=== PATIENT | male | born 1935 | race Caucasian/White ===

== ENCOUNTER 2020-10-11 08:25 | Outpatient (REF) | payer SELFPAY | END 2020-10-11 08:26 | disposition home or self-care (01) | LOC: HO.HAP 08:25 | PROVIDERS: PCP Internal Medicine; Referring Provider Internal Medicine; Visit Provider Internal Medicine | DX: Z46.1 Encounter for fitting and adjustment of hearing aid (principal) | CPT/HCPCS: V5267 ==

== ENCOUNTER → 2020-12-26 07:49 | Outpatient (BNVA) | payer MEDICARE, SELFPAY | PROVIDERS: PCP Internal Medicine; Visit Provider Internal Medicine | DX: I25.10 Atherosclerotic heart disease of native coronary artery without angina pectoris (principal); I51.89 Other ill-defined heart diseases; I27.20 Pulmonary hypertension, unspecified; I10 Essential (primary) hypertension; E11.8 Type 2 diabetes mellitus with unspecified complications | CPT/HCPCS: 93005; 99212 ==

== ENCOUNTER 2021-03-21 07:28 | Outpatient (REF) | payer MEDICARE, SELFPAY ==
[2021-03-21 08:43] LABS: MANUAL DIFF FLAG NO
[2021-03-21 08:51] LABS: Basophils Percent Auto 0.5 % (0-2); Eosinophils Absolute Auto 0.2 X10*3/uL (0.0-0.4); Eosinophils Percent Auto 2.5 % (0-4); Hemoglobin 13.5 g/dl (14.0-18.0); Imm Gran Abs Auto 0.04 X10*3/uL (0.00-0.03); Imm Gran Pct Auto 0.5 % (0.0-0.4); Immature Retic Fraction 18.5 % (2.3-13.4); Lymphocytes Absolute Auto 2.6 X10*3/uL (1.2-4.9); Lymphocytes Percent Auto 29.8 % (20-40); Mean Corpuscular HGB Conc 30.7 g/dl (31.0-36.0); Mean Corpuscular Hemoglobin 27.8 pg (27.0-33.0); Mean Corpuscular Volume 90.5 fL (80-98); Mean Platelet Volume 11.4 fL (9.4-12.4); Monocytes Absolute Auto 0.9 X10*3/uL (0.1-1.2); Neutrophils Absolute Auto 4.9 X10*3/uL (2.0-8.3); Neutrophils Percent Auto 56.7 % (45-73); Platelet Count 245 X10*3/uL (160-400); Red Blood Count 4.86 X10*6/uL (4.60-5.80); Red Cell Distribution Width 13.8 % (11.0-16.0); Retic HGB Equivalent 32.6 pg (30.0-35.0); Reticulocyte Percent 1.1 % (0.5-1.8); Reticulocytes Absolute 0.055 X10*6/uL (0.026-0.095); White Blood Count 8.6 X10*3/uL (4.8-10.8)
[2021-03-21 09:03] LABS: Alanine Aminotransferase 11 U/L (0-40); Albumin Level 4.5 g/dL (3.5-5.0); Alkaline Phosphatase 88 U/L (39-117); Anion Gap 14 (12-20); Aspartate Amino Transferase 17 U/L (5-37); Bilirubin Total 1.1 mg/dL (0.0-1.0); Blood Urea Nitrogen 16 mg/dL (9-16); Calcium 9.5 mg/dL (8.4-10.2); Carbon Dioxide 25 mmol/L (22-29); Chloride 104 mmol/L (96-108); Cholesterol 137 mg/dL; Estimated Glomerular Filt Rate > 60; Glucose Random 97 mg/dL (60-115); HDL Cholesterol 47 mg/dL; Iron 61 mcg/dL (45-160); LDL Cholesterol Calculated 70 mg/dl; Percent Iron Saturation 15 % (15-50); Potassium 4.9 mmol/L (3.3-5.1); Sodium 138 mmol/L (135-145); Total Iron Binding Capacity 414 mcg/dL (228-428); Total Protein 7.1 g/dL (6.5-8.0); Triglycerides 100 mg/dL; Unsaturated Iron Binding 353 ug/dL
[2021-03-21 09:27] LABS: Ferritin 19 ng/mL (20-250); Free T4 (Free Thyroxine) 1.06 ng/dL (0.71-1.85); Thyroid Stimulating Hormone 2.32 uIU/mL (0.32-4.0)
[2021-03-21 09:36] LABS: Folate 8.5 ng/mL (> or = 4.0); Vitamin B12 1155 pg/mL (200-900)
[2021-03-21 11:00] LABS: Creatinine Urine 253.16 mg/dL; Microalbum/Creatinine Ratio Ur 7.9 ug/mg cr
== END 2021-03-21 07:29 | disposition home or self-care (01) ==
LOC: HO.LAB 07:28
PROVIDERS: PCP Internal Medicine; Visit Provider Internal Medicine
DX: I10 Essential (primary) hypertension (principal); E11.65 Type 2 diabetes mellitus with hyperglycemia; E78.00 Pure hypercholesterolemia, unspecified
CPT/HCPCS: 36415; 80053; 80061; 82043; 82607; 82728; 82746; 83540; 84439; 84443; 85025; 85045

== ENCOUNTER 2021-04-19 08:00 | Outpatient (REF) | payer SELFPAY ==
--- NOTE | 2021-04-19 08:56 | MHC.AU.HFU ---
Hearing Instrument Follow-Up- Binaural Date of Visit: 04/19/21 Right Ear: Dock Clerk: Phonak Model: Audeo Q50 Serial Number: [id number] Repair Warranty: 10/19/2017 Loss and Damage Warranty: 10/19/2017 Battery Size: 312 Telecommunication Operator: 3xS Type of Dome: Large Open Type of Wax Guard: CeruStop Dispensed By: [facility] Date of Fittin08/05/2014 Left Ear: Dock Clerk: Phonak Model: Audeo Q50 Serial Number: [id number] Repair Warranty: 10/19/2017 Loss and Damage Warranty: 10/19/2017 Battery Size: 312 Telecommunication Operator: 3xS Type of Dome: Large Open Type of Wax Guard: CeruStop Dispensed By: [facility] Date of Fittin08/05/2014 Follow-Up Summary: Patient reports his left hearing aid recently stopped working. He also noted that the domes are ripped on both instruments. Hearing aid maintenance performed. In the left cloth measurer, a small amount of wax had gotten past the wax guard. Wax was removed from the cloth measurer. Microphones on both hearing aids were partially clogged. Microphones were vacuumed. Wax guards and domes replaced. Debris cleaned out of both battery compartments. Hearing aids are both amplifying clearly after maintenance. Patient reported they both sounded good, and no adjustments were needed. Patient purchased 2 packages of wax guards. Recommendations: Hearing instrument follow-up or maintenance as needed. Please contact our clinic with any questions or concerns. Diagnosis Code(s): Primary Diagnosis: H90.3 Bilateral Sensorineural Hearing Loss Signature: Provider: Monica Covington, [facility]
== END 2021-04-19 08:01 | disposition home or self-care (01) ==
LOC: HO.HAP 08:00
PROVIDERS: Visit Provider Internal Medicine
DX: Z46.1 Encounter for fitting and adjustment of hearing aid (principal); H90.3 Sensorineural hearing loss, bilateral
CPT/HCPCS: 99499; V5267

== ENCOUNTER 2021-06-14 10:46 | Outpatient (REF) | payer MEDICARE, SELFPAY ==
--- NOTE | ~2021-06-14 | XR_ITS ---
EXAMINATION: XR CHEST CLINICAL INFORMATION: Chest pain. COMPARISON: Most recent chest radiograph dated 09/17/2017. TECHNIQUE: 2 views of the chest were obtained. FINDINGS: The lungs are clear. The cardiomediastinal silhouette is normal in size. There is no pleural effusion or pneumothorax. No acute osseous abnormality. XR/XR chest 2V IMPRESSION: No acute cardiopulmonary findings.
[2021-06-14 11:16] LABS: MANUAL DIFF FLAG NO
[2021-06-14 11:19] LABS: Basophils Percent Auto 0.3 % (0-2); Eosinophils Absolute Auto 0.1 X10*3/uL (0.0-0.4); Eosinophils Percent Auto 1.4 % (0-4); Hematocrit 41.2 % (42-52); Hemoglobin 13.2 g/dl (14.0-18.0); Imm Gran Abs Auto 0.03 X10*3/uL (0.00-0.03); Imm Gran Pct Auto 0.3 % (0.0-0.4); Lymphocytes Absolute Auto 2.4 X10*3/uL (1.2-4.9); Lymphocytes Percent Auto 25.8 % (20-40); Mean Corpuscular Hemoglobin 28.9 pg (27.0-33.0); Mean Corpuscular Volume 90.4 fL (80-98); Mean Platelet Volume 10.8 fL (9.4-12.4); Monocytes Absolute Auto 0.8 X10*3/uL (0.1-1.2); Neutrophils Percent Auto 64.2 % (45-73); Platelet Count 246 X10*3/uL (160-400); Red Blood Count 4.56 X10*6/uL (4.60-5.80); Red Cell Distribution Width 14.2 % (11.0-16.0); White Blood Count 9.3 X10*3/uL (4.8-10.8)
[2021-06-14 11:41] LABS: Alanine Aminotransferase 12 U/L (0-40); Albumin Level 4.4 g/dL (3.5-5.0); Alkaline Phosphatase 90 U/L (39-117); Anion Gap 16 (12-20); Aspartate Amino Transferase 17 U/L (5-37); Bilirubin Total 1.5 mg/dL (0.0-1.0); Blood Urea Nitrogen 15 mg/dL (9-16); Calcium 9.5 mg/dL (8.4-10.2); Carbon Dioxide 24 mmol/L (22-29); Chloride 105 mmol/L (96-108); Estimated Glomerular Filt Rate > 60; Glucose Random 85 mg/dL (60-115); Potassium 5.1 mmol/L (3.3-5.1); Sodium 140 mmol/L (135-145); Total Protein 6.8 g/dL (6.5-8.0)
[2021-06-14 11:43] LABS: B Type Natriuretic Peptide 98 pg/mL (<100)
== END 2021-06-14 10:47 | disposition home or self-care (01) ==
LOC: HO.XRAY 10:46
PROVIDERS: PCP Internal Medicine; Visit Provider Internal Medicine
DX: R07.9 Chest pain, unspecified (principal)
CPT/HCPCS: 36415; 71046; 80053; 83880; 85025

== ENCOUNTER → 2021-07-23 13:47 | Outpatient (REF) | payer MEDICARE, SELFPAY ==
--- NOTE | 2021-07-23 13:50 | CA_ITS ---
Transthoracic Echocardiogram Patient (Last, First, Middle): Juan Giles F Gender: Male Date of : 1935 Age: 85 Procedure Date: 07/23/2021 Procedure Type: Transthoracic Echocardiogram Location: OP Height: 175.26 cm Weight: 74.84 kg BSA: 1.90 m2 Heart Rate: bpm BP: 116 / 60 mmHg Life Sciences Director: MARY JO Referring MD: Layne Kimball MD Supervisor Stave Cutting: Marco Pinon MD Symptoms: R07.9 - Chest pain, unspecified Study Quality: Fair ECG Rhythm: Sinus Conclusions: - 1. Normal LV systolic function with restrictive filling pattern 2. Normal cardiac valvular Doppler 3. RV systolic pressure measured on this study to be within normal limits 4. No gross pericardial effusion Findings Left Ventricle Normal left ventricular size, thickness, and systolic function. The visually estimated ejection fraction is between 60-65%. Spectral Doppler is indicative of a restrictive filling pattern. Elevated left ventricular end diastolic pressure. E/E prime ratio is between 8 and 15 consistent with indeterminate filling pressures. Right Ventricle Normal right ventricular cavity size. There is low normal right ventricular systolic function. Atria The left atrium is likely dilated. Interatrial shunt cannot be excluded. The right atrium is normal in size. Aortic Valve The aortic valve was not well visualized. There is mild calcification of the aortic valve. There is no aortic valve stenosis. There is no aortic valve regurgitation. Mitral Valve There is mild anterior and posterior mitral leaflet thickening. There is mild mitral annular calcification. There is trace mitral valve regurgitation. There is no mitral valve stenosis. Pulmonic Valve The pulmonic valve is likely normal. Tricuspid Valve Likely normal tricuspid valve structure and function. There is mild tricuspid valve regurgitation. The right ventricular systolic pressure is normal. The right ventricular systolic pressure is 38 mmHg. Normal right atrial pressure. There is no evidence of pulmonary hypertension. Great Vessels All visible segments of the aorta are normal in size. The pulmonary artery was not well visualized. Venous The inferior vena cava is normal in size and collapses greater than 50% with inspiration. Pericardium/Pleural There is no evidence of pericardial effusion. Prior Study Comparison Changes noted compared to prior study dated: 12/08/2019. LV diastolic dysfunction suggestive of restrictive filling pattern. RV systolic pressure on this study is measured to be within normal limits, possibly underestimated Measurements 2D Linear Measurements IVSd: 0.95 0.6-0.9/0.6-1.0 cm LVIDd: 4.54 3.9-5.3/4.2-5.9 cm LVIDd Index: 2.39 2.4-3.2/2.2-3.1 cm/m2 LVIDs: 3.13 2.0-3.6 cm LVPWd: 0.99 0.7-1.1 cm Ao Root: 3.30 2.1-3.5 cm LA Diam: 3.50 2.7-3.8/3.0-4.0 cm LAIDs Index: 1.84 1.5-2.3 cm/m2 LV Mass: 184.88 67-162/88-224 g LV Mass Index: 97.30 43-95/49-115 g/m2 LVOT Diam: 2.00 3.0+(-)1.3 cm 2D Systolic Function EF 4C: 64.10 >55% EF 2C: 63.00 >55% Mitral Valve MV Pk E: 1.04 MV PK A: 0.36 MV Decel Time: 178.00 E/A: 2.90 E'Lateral: 6.96 E'Medial: 7.18 E/E' Med: 14.50 E/E' Lat: 14.90 PHT: 52.00 MVA PHT: 4.23 Decel [place]: 5.84 Aortic Valve AoV Pk Binh: 1.36 AoV Mn Binh: 0.86 AoV VTI: 0.31 AoV Pk Grad: 7.00 Aov Mn Grad: 4.00 LYLE Cont.VTI: 1.76 LVOT LVOT Pk Binh: 0.71 LVOT Mn Binh: 0.44 LVOT VTI: 0.17 LVOT Pk Grad: 2.00 LVOT Mn Grad: 1.00 LVOT Diam: 2.00 LVOT Area: 3.14 Diastolic Function MV Pk E: 1.04 MV Pk A: 0.36 E/A: 2.90 E'Medial: 7.18 E/E' Med: 14.50 E' Laterial: 6.96 E/E' Lat: 14.90 Tricuspid Valve TR Pk Binh: 2.97 TR Pk Grad: 35.00 RA Press: 3.00 RVSP: 38.00 Great Vessels Aorta Ao Root-2D: 3.30 2.0-3.7 cm Ao Asc: 3.50 2.1-3.4 cm Pulmonary Valve PV Pk Binh: 0.75 Peak PV Grad: 2.00 Updated in Other Vendor System with Status of Final Marco Pinon MD electronically signed on 07/24/2021 4:00:20 PM with status of Final
== END ==
LOC: HO.CARD 13:47
PROVIDERS: PCP Internal Medicine; Visit Provider Internal Medicine
DX: R07.9 Chest pain, unspecified (principal)
CPT/HCPCS: 93306

== ENCOUNTER 2021-09-12 15:46 | Outpatient (REF) | payer SELFPAY | END 2021-09-12 15:47 | disposition home or self-care (01) | LOC: HO.HAP 15:46 | PROVIDERS: Visit Provider Internal Medicine | DX: H90.3 Sensorineural hearing loss, bilateral (principal) | CPT/HCPCS: V5267 ==

== ENCOUNTER → 2021-12-31 08:46 | Outpatient (BNVA) | payer OTHER, SELFPAY | PROVIDERS: PCP Internal Medicine; Referring Provider Internal Medicine; Visit Provider Internal Medicine | DX: I25.10 Atherosclerotic heart disease of native coronary artery without angina pectoris (principal); I51.89 Other ill-defined heart diseases; I27.20 Pulmonary hypertension, unspecified; I10 Essential (primary) hypertension; E11.8 Type 2 diabetes mellitus with unspecified complications | CPT/HCPCS: 93005 ==

== ENCOUNTER 2022-01-03 11:04 | Outpatient (REF) | payer SELFPAY | END 2022-01-03 11:05 | disposition home or self-care (01) | LOC: HO.HAP 11:04 | PROVIDERS: Visit Provider Internal Medicine | DX: Z46.1 Encounter for fitting and adjustment of hearing aid (principal); H90.3 Sensorineural hearing loss, bilateral | CPT/HCPCS: V5267 ==

== ENCOUNTER 2022-01-31 07:43 | Outpatient (REF) | payer MEDICARE, SELFPAY ==
--- NOTE | ~2022-01-31 | XR_ITS ---
EXAMINATION: XR CHEST CLINICAL INFORMATION: Cardiac arrhythmia COMPARISON: Previous chest x-ray most recent June 2021 TECHNIQUE: 2 views of the chest were obtained. FINDINGS: The cardiac and mediastinal contours are stable. The lungs are well inflated. The lungs are clear. There is no pleural effusion or pneumothorax. There are mild degenerative changes of the spine. XR/XR chest 2V IMPRESSION: No evidence for acute disease in the chest.
[2022-01-31 08:21] LABS: MANUAL DIFF FLAG NO
[2022-01-31 08:32] LABS: Basophils Absolute Auto 0.1 X10*3/uL (0.0-0.2); Basophils Percent Auto 0.8 % (0-2); Eosinophils Absolute Auto 0.1 X10*3/uL (0.0-0.4); Eosinophils Percent Auto 2.1 % (0-4); Hematocrit 42.6 % (42.0-52.0); Hemoglobin 13.5 g/dl (14.0-18.0); Imm Gran Abs Auto 0.03 X10*3/uL (0.00-0.03); Imm Gran Pct Auto 0.5 % (0.0-0.4); Lymphocytes Absolute Auto 2.1 X10*3/uL (1.2-4.9); Lymphocytes Percent Auto 32.3 % (20-40); Mean Corpuscular HGB Conc 31.7 g/dl (31.0-36.0); Mean Corpuscular Hemoglobin 27.3 pg (27.0-33.0); Mean Corpuscular Volume 86.2 fL (80.0-98.0); Mean Platelet Volume 10.7 fL (9.4-12.4); Monocytes Absolute Auto 0.7 X10*3/uL (0.1-1.2); Monocytes Percent Auto 10.2 % (2-11); Neutrophils Absolute Auto 3.5 x10*3/uL (2.0-8.3); Neutrophils Percent Auto 54.1 % (45-73); Platelet Count 252 X10*3/uL (160-400); Red Blood Count 4.94 X10*6/uL (4.60-5.80); Red Cell Distribution Width 13.2 % (11.0-16.0); White Blood Count 6.5 X10*3/uL (4.8-10.8)
[2022-01-31 08:45] LABS: D Dimer High Sensitivity < 150 NG/ML
[2022-01-31 08:46] LABS: Appearance Urine CLEAR; Color Urine YELLOW; Glucose Urine UA NEG (NEG); Leukocyte Esterase Urine NEG (NEG); Nitrite Urine NEG (NEG); PH 5.5 (5.0-8.0); Specific Gravity - Urine >= 1.030 (1.005-1.025); Urine Blood NEG (NEG); Urine Ketones NEG (NEG); Urine Protein NEG (NEG-TRACE)
[2022-01-31 08:53] LABS: Alanine Aminotransferase 11 U/L (0-40); Albumin Level 4.1 g/dL (3.5-5.0); Alkaline Phosphatase 92 U/L (39-117); Anion Gap 15 (12-20); Aspartate Amino Transferase 16 U/L (5-37); Blood Urea Nitrogen 20 mg/dL (9-16); Calcium 9.8 mg/dL (8.4-10.2); Carbon Dioxide 27 mmol/L (22-29); Chloride 103 mmol/L (96-108); Estimated Glomerular Filt Rate 53; Glucose Random 108 mg/dL (60-115); Potassium 5.7 mmol/L (3.3-5.1); Sodium 139 mmol/L (135-145); Total Protein 6.7 g/dL (6.5-8.0)
[2022-01-31 08:57] LABS: Troponin-I High Sensitivity < 3.5 ng/L (<3.5-35.0)
[2022-01-31 09:05] LABS: Mucus Urine 1+ /LPF; RBC Urine 0 /HPF (0); Squamous Epithelial Cell Urine TRACE /LPF; WBC Urine 0 /HPF (0-4)
[2022-01-31 09:16] LABS: Free T4 (Free Thyroxine) 1.23 ng/dL (0.71-1.85); Thyroid Stimulating Hormone 2.57 uIU/mL (0.32-4.0)
== END 2022-01-31 07:44 | disposition home or self-care (01) ==
LOC: HO.LAB 07:43
PROVIDERS: PCP Internal Medicine; Visit Provider Internal Medicine
DX: I49.9 Cardiac arrhythmia, unspecified (principal); I48.91 Unspecified atrial fibrillation; I48.92 Unspecified atrial flutter
CPT/HCPCS: 36415; 71046; 80053; 81001; 82550; 84439; 84443; 84484; 85025; 85379

== ENCOUNTER → 2022-02-07 14:35 | Outpatient (BNVA) | payer MEDICARE, SELFPAY | PROVIDERS: PCP Internal Medicine; Referring Provider Internal Medicine; Visit Provider Internal Medicine | DX: I25.10 Atherosclerotic heart disease of native coronary artery without angina pectoris (principal); I51.89 Other ill-defined heart diseases; I27.20 Pulmonary hypertension, unspecified; I48.91 Unspecified atrial fibrillation; I10 Essential (primary) hypertension | CPT/HCPCS: 93005; 99212 ==

== ENCOUNTER 2022-02-07 15:02 | Observation (INO) | payer MEDICARE, SELFPAY ==
--- NOTE | 2022-02-07 | ECG_ITS ---
Test Reason : AFIB/ST CHANGES Blood Pressure : / mmHG Vent. Rate : 100 BPM Atrial Rate : 277 BPM P-R Int : 000 ms QRS Dur : 080 ms QT Int : 356 ms P-R-T Axes : 000 041 -27 degrees QTc Int : 459 ms Atrial flutter with variable A-V block Low voltage QRS Nonspecific ST and T wave abnormality Abnormal ECG When compared with ECG of 07-FEB-2022 15:02, Vent. rate has decreased ST less depressed in Anterior leads T wave inversion no longer evident in Anterolateral leads Referred By: Tony Luo Electronically Signed By:TOBIAS DUVAL MD
--- NOTE | ~2022-02-07 | XR_ITS ---
EXAMINATION: XR CHEST CLINICAL INFORMATION: Chest pain. COMPARISON: 01/31/2022 chest radiographs. TECHNIQUE: Frontal view of the chest was obtained. FINDINGS: No significant abnormality is noted involving the heart, lungs, mediastinum, bony thorax or soft tissues. XR/XR chest 1V IMPRESSION: No acute cardiopulmonary process.
[2022-02-07 15:07] VITALS: BP 154/94; PULSE 143; RESP 18; TEMP 35.5; O2SAT 98; BMI 24.7
--- NOTE | 2022-02-07 15:07 | ECG_ITS ---
Test Reason : CHEST PAIN Blood Pressure : / mmHG Vent. Rate : 140 BPM Atrial Rate : 141 BPM P-R Int : 206 ms QRS Dur : 068 ms QT Int : 282 ms P-R-T Axes : 043 047 -81 degrees QTc Int : 430 ms Atrial flutter with [address] & T wave abnormality, consider inferior ischemia ST & T wave abnormality, consider anterolateral ischemia Abnormal ECG No previous ECGs available Referred By: Generic ED Physician Electronically Signed By:TOBIAS DUVAL MD
--- NOTE | 2022-02-07 15:37 | ED_ITS ---
HPI - Chest Pain General Chief Complaint: Chest Pain Stated Complaint: william came from cardiology Time Seen by Provider: 02/07/22 15:23 Source: patient and other (Expect from the musical instruments assembler, Dr. Harley) Mode of arrival: ambulatory Limitations: no limitations History of Present Illness HPI narrative: 86-year-old male who presents emergency department for evaluation of atrial fibrillation. The patient states that last week he went for a checkup with his PCP Dr. Kimball. He states that Dr. Lopez did not like the sound of his heart got an EKG on him and also got blood work. The blood work revealed an elevated potassium he states he took a medicine for 3 days to low risk potassium. He was also referred to his musical instruments assembler for atrial fibrillation. The patient has soft Dr. Harley today and he was found to be in atrial fibrillation with a rapid ventricular response. The patient was symptomatic and was referred to the emergency department for evaluation. The patient states that he has been feel ing short of breath for approximately 1 week. He also states he is having pressure on his chest. He states that over the past 2 days the chest pressure was constant, he also had pain that radiated to his left arm. The chest pressure is 4/10. He was feeling dizzy and lightheaded. In the emergency department he states he does have chest pressure it is 4/10. The patient states that he does not have a history of atrial fibrillation and that this is a new diagnosis for him. He does have a history coronary artery disease and has had 2 stents in the past. He also has a history of diastolic dy sfunction Related Data Home Medications Medication Instructions Recorded Confirmed albuterol sulfate 90 mcg/actuation 2 puff INHALATION Q6H PRN 10/06/20 02/07/22 aerosol inhaler (ProAir HFA) aspirin 81 mg tablet,delayed 81 mg PO DAILY 10/06/20 02/07/22 release (Adult Low Dose Aspirin) Previous Rx's Medication Instructions Recorded metoprolol tartrate 50 mg tablet 50 mg PO BID 90 Days #180 tab 10/11/21 amlodipine 5 mg tablet 5 mg PO DAILY #90 tab 10/16/21 atorvastatin 40 mg tablet 40 mg PO DAILY #90 tab 10/16/21 apixaban 5 mg tablet (Eliquis) 5 mg PO BID #60 tab 01/30/22 Allergies Allergy/AdvReac Type Severity Reaction Status Date / Time lisinopril Allergy Unknown hyperkalemi Verified 02/07/22 14:42 a Review of Systems Review of Systems: Yes all other systems are reviewed and are negative [facility] Past Medical History Attestation statement: The following information was validated with the patient. Medical History Asthma Atherosclerotic cardiovascular disease Coronary artery disease Diabetic neuropathy Diastolic dysfunction Essential hypertension Hypercholesterolemia Iron deficiency anemia Left renal stone Pulmonary hypertension Type 2 diabetes mellitus with hyperglycemia Vitamin D deficiency Surgical History History of appendectomy History of inguinal hernia repair History of lymph node excision Family History Family History Father CVD (cardiovascular disease) Myocardial infarction Mother Hypertension Heart disease Diabetes CVD (cardiovascular disease) Sister No problems noted. Sister Diabetes Social History Social History Housing: House Alcohol intake: never Patient Tobacco Use Status: Former Tobacco user Tobacco use type: Cigarette e-Cigarette/Vaping Use: Never Used Second Hand Smoke Exposure: No Advance Directives: No Advance Directives Information Provided: No service: Yes Current occupational status: retired Cognitive needs: No Hearing needs: Yes Vision needs: Yes Physical Exam Vital Signs: Vital Signs: Last Vital Signs Temp 96 F L 02/07/22 15:07 Pulse 82 02/07/22 16:25 Resp 16 02/07/22 16:25 BP 113/61 02/07/22 16:25 Pulse Ox 96 02/07/22 16:25 BMI result Body Mass Index 24.7 Const: General: cooperative and no acute distress Orientation/consciousness: oriented to person and oriented to place Limitations: no limitations HEENT: Head: Yes normal to inspection, Yes normocephalic and Yes atraumatic Ears: external ears normal General nose exam: Normal external nose present Face and sinus: Yes normal facial exam Mouth: Normal oral and palatal mucosa present Throat: Yes posterior oropharynx normal Eyes: General: appearance normal, both eyes and all related structures Pupils: Equal, round and reactive pupils present Neck: Neck: Yes normal visual inspection, Yes no lymphadenopathy, Yes trachea midline and Yes supple Chest: Chest palpation & inspection: normal inspection of the chest and normal palpation of entire chest wall Resp: Effort & Inspection: normal respiratory effort and able to speak in complete sentences Auscultation: clear to auscultation bilaterally Cardio: Rate: tachycardic Rhythm: abnormal rhythm irregularly irregular Heart sounds: S1 normal heart sound present and S2 normal heart sound present GI: Inspection: Yes normal to inspection Palpation (GI): Soft to palpation, nontender and no guarding Auscultation: normal bowel sounds : General: Yes no CVA tenderness Back/Spine/Pelvis: Back: no CVA tenderness Skin: General skin exam: no rashes or lesions noted Neuro: General: oriented to person and oriented to place Cranial nerves: Y es CN's II-XII intact bilaterally and Yes Equal, round and reactive pupils present Cognition (Neuro): normal cognition Motor exam (neuro): 5/5 motor strength present throughout Extrem: General: Yes normal to inspection Psych: Appearance: grossly normal Speech and movement: Normal speech and movement present Affect: normal affect Attitude: cooperative Thought process: Normal thought process present Thought content: Normal thought content present Course Course Course Narrative: 86-year-old male who presents emergency department for evaluation of new onset atrial fibrillation with shortness of breath x1 week, chest pain which is been constant x2 days with left arm pain as well. Patient was seen by Dr. Meng de la cruz and sent to the emergency department for evaluation. Vital signs revealed an elevated blood pressure 154/94 and an elevated heart rate of 143. Twelve EKG revealed atrial fibrillation with a rapid ventricular response 140 I did order laboratory evaluation. Patient was also ordered to get diltiazem 15 mg IV. 1734: Laboratory evaluation: CBC was normal. Glucose elevated 121. Potassium was normal 4.6, down from 5.7 on 01/31/2022. High sensitive troponin I was below detectable limits. TSH from 01/31/2022 was normal. Influenza was negative. Radiology evaluation: Chest x-ray was normal The patient's heart rate improved to less than 100 after the above treatment. The patient states he still is having the chest discomfort. Given the fact that this high sensitive troponin is below detectable limits but having constant chest pain for 2 days suggests that the patient's pain is not secondary to myocardial infarction. Since the patient has new onset atrial fibrillation asymptomatic I will discuss admission with the covering hospitalist. 1820: I did discuss this with the covering musical instruments assembler, Dr. Pinon who recommended the patient be admitted and be kept NPO. MDM - Chest Pain Lab Data Result diagrams: 02/07/22 15:58 Labs: Lab Results 02/07/22 02/07/22 02/07/22 Range/Units 15:58 15:58 15:58 Sodium 143 142 (135-145) mmol/L Potassium 4.5 D 4.6 (3.3-5.1) mmol/L Chloride 106 106 (96-108) mmol/L Carbon Dioxide 26 27 (22-29) mmol/L Anion Gap 16 14 (12-20) BUN 19 H 18 H (9-16) mg/dL Creatinine 1.06 1.03 (0.5-1.4) mg/dL Estim Creat Clear Calc 50.0 51.4 Estimated GFR > 60 > 60 Random Glucose 126 H 121 H (60-115) mg/dL Calcium 9.2 D 9.1 (8.4-10.2) mg/dL Total Bilirubin 1.5 H (0.0-1.0) mg/dL AST 18 (5-37) U/L ALT 13 (0-40) U/L Alkaline Phosphatase 96 (39-117) U/L Troponin I High Sens < 3.5 (<3.5-35.0) ng/L Total Protein 6.8 (6.5-8.0) g/dL Albumin 4.1 (3.5-5.0) g/dL Lipase 49 (8-78) U/L Influenza Type A (RICK) (Negative) Influenza Type B (RICK) (Negative) Influenza A & B Note 02/07/22 Range/Units 16:04 Sodium (135-145) mmol/L Potassium (3.3-5.1) mmol/L Chloride (96-108) mmol/L Carbon Dioxide (22-29) mmol/L Anion Gap (12-20) BUN (9-16) mg/dL Creatinine (0.5-1.4) mg/dL Estim Creat Clear Calc Estimated GFR Random Glucose (60-115) mg/dL Calcium (8.4-10.2) mg/dL Total Bilirubin (0.0-1.0) mg/dL AST (5-37) U/L ALT (0-40) U/L Alkaline Phosphatase (39-117) U/L Troponin I High Sens (<3.5-35.0) ng/L Total Protein (6.5-8.0) g/dL Albumin (3.5-5.0) g/dL Lipase (8-78) U/L Influenza Type A (RICK) Negative (Negative) Influenza Type B (RICK) Negative (Negative) Influenza A & B Note See Note ECG Data ECG #1: Interpretation: 1502: Atrial fibrillation with a ventricular rate of 140, normal QRS and QTC intervals, no ST segment elevation, [address] depression V4 V5 and V6, no PVCs, Discharge Plan Discharge Prescriptions: No Action metoprolol tartrate 50 mg tablet 50 mg PO BID 90 Days Qty: 180 3RF aspirin [Adult Low Dose Aspirin] 81 mg tablet,delayed release (DR/EC) 81 mg PO DAILY 0RF albuterol sulfate [ProAir HFA] 90 mcg/actuation HFA aerosol inhaler 2 puff inhalation Q6H PRN (Reason: Shortness Of Breath) 0RF atorvastatin 40 mg tablet 40 mg PO DAILY Qty: 90 3RF amlodipine 5 mg tablet 5 mg PO DAILY Qty: 90 3RF Eliquis 5 mg tablet 5 mg PO BID Qty: 60 0RF
[2022-02-07 16:07] VITALS: BP 131/89; PULSE 120; RESP 26; O2SAT 97
[2022-02-07 16:16] LABS: Anion Gap 16 (12-20); Blood Urea Nitrogen 19 mg/dL (9-16); Calcium 9.2 mg/dL (8.4-10.2); Carbon Dioxide 26 mmol/L (22-29); Chloride 106 mmol/L (96-108); Estimated Glomerular Filt Rate > 60; Glucose Random 126 mg/dL (60-115); Potassium 4.5 mmol/L (3.3-5.1); Sodium 143 mmol/L (135-145)
[2022-02-07] MEDS: dilTIAZem HCL 50 MG/10 ML VIAL 15 MG IVPUSH (16:19)
[2022-02-07 16:23] LABS: Troponin-I High Sensitivity < 3.5 ng/L (<3.5-35.0)
[2022-02-07 16:24] LABS: Alanine Aminotransferase 13 U/L (0-40); Albumin Level 4.1 g/dL (3.5-5.0); Alkaline Phosphatase 96 U/L (39-117); Anion Gap 14 (12-20); Aspartate Amino Transferase 18 U/L (5-37); Bilirubin Total 1.5 mg/dL (0.0-1.0); Blood Urea Nitrogen 18 mg/dL (9-16); Calcium 9.1 mg/dL (8.4-10.2); Carbon Dioxide 27 mmol/L (22-29); Chloride 106 mmol/L (96-108); Creatinine Clr Calc Pharmacy 51.4; Estimated Glomerular Filt Rate > 60; Glucose Random 121 mg/dL (60-115); Lipase 49 U/L (8-78); Potassium 4.6 mmol/L (3.3-5.1); Sodium 142 mmol/L (135-145); Total Protein 6.8 g/dL (6.5-8.0)
[2022-02-07 16:25] VITALS: BP 113/61; PULSE 82; RESP 16; O2SAT 96
[2022-02-07 16:29] LABS: Influenza A Negative (Negative); Influenza B2 Negative (Negative)
--- NOTE | 2022-02-07 17:58 | PHA.MEDREC ---
Pharmacy Consult ? Medication Reconciliation Pharmacy has completed the medication reconciliation.
--- NOTE | 2022-02-07 18:50 | P.HPHOSP_ITS ---
History of Present Illness Date of Service: 02/07/22 Attending physician on admission: Tony Luo Chief Complaint: afib , chest pain 86y/o M who CAME WITH AFIB.? The patient states that last week he went for a checkup with his PCP Dr. Kimball.? He states that Dr. Kimball did not like the sound of his heart got an EKG on him and also got blood work.? The blood work revealed an elevated potassium he states he took a medicine for 3 days to low risk potassium.? He was also referred to his senior internet sales consultant for atrial fibrillationand went to cardiology today where he was found to be in atrial fibrillation with a rapid ventricular response.? The patient was symptomatic and was referred to the emergency department for evaluation.? The patient states that he has been feeling short of breath for approximately 1 week.? He also states he is having pressure on his chest.? He states that over the past 2 days the chest pressure was constant, he also had pain that radiated to his left arm.? The chest pressure is 4/10.? He was feeling dizzy and lightheaded.? intial chest pressure it is 4/10 which is resolved, he said when he had chest pressure he has also had some dizziness and short of breath but all the symptoms are resolved currently. He said the chest pressure resolved with resting phone last week . The patient states that he does not have a history of atrial fibrillation and that this is a new diagnosis for him.? He does have a history coronary artery disease and has had 2 stents in the past.? He also has a history of diastolic dysfunction Lab imaging reviewed: CBC BMP seems fine, EKG shows T wave the lateral leads in the setting of AFib. Patient had nuclear stress done in November 2017: Was fine., also added that time stress test also showed V4 to V6 downsloping ST roman. Review of Systems Review of Systems: Denies any new complaint of shortness of breath or abdominal pain or fever or chills or nausea or vomiting Denies any cough Denies any weakness or numbness. [facility] Medical History Asthma Atherosclerotic cardiovascular disease Coronary artery disease Diabetic neuropathy Diastolic dysfunction Essential hypertension Hypercholesterolemia Iron deficiency anemia Left renal stone Pulmonary hypertension Type 2 diabetes mellitus with hyperglycemia Vitamin D deficiency Family History Father CVD (cardiovascular disease) Myocardial infarction Mother Hypertension Heart disease Diabetes CVD (cardiovascular disease) Sister No problems noted. Sister Diabetes Pertinent family history: Heart disease run in family, also has history of diabetes in her sister. Surgical History History of appendectomy History of inguinal hernia repair History of lymph node excision Social History Housing: House Alcohol intake: never Patient Tobacco Use Status: Former Tobacco user Tobacco use type: Cigarette e-Cigarette/Vaping Use: Never Used Second Hand Smoke Exposure: No Advance Directives: No Advance Directives Information Provided: No service: Yes Current occupational status: retired Cognitive needs: No Hearing needs: Yes Vision needs: Yes Meds Allergies Allergy/AdvReac Type Severity Reaction Status Date / Time lisinopril Allergy Unknown hyperkalemi Verified 02/07/22 14:42 a Active Medications: Current Medications Albuterol Sulfate (Albuterol Sulfate 90 Mcg 8 Gm Inhaler) 2 puff INHALE Q6H PRN PRN Reason: Shortness Of Breath Amlodipine Besylate (Amlodipine Besylate 5 Mg Tablet) 5 mg PO DAILY [facility]; Protocol Apixaban (Apixaban 5 Mg Tablet) 5 mg PO BID [facility] Aspirin (Aspirin Enteric Coated 81 Mg Tablet.Dr) 81 mg PO DAILY [facility] Atorvastatin Calcium (Atorvastatin Calcium 40 Mg Tablet) 40 mg PO DAILY [facility] Metoprolol Tartrate (Metoprolol Tartrate 50 Mg Tablet) 50 mg PO BID [facility]; Protocol Pharmacy Consult (Consult Rx Perform Med Rec) 1 each MISCELLANE ONCE PRN PRN Reason: Consult order Pharmacy Consult (Consult Rx Perform Med Rec) 1 each MISCELLANE ONCE PRN PRN Reason: Consult order Sodium Chloride (0.9 % Sodium Chloride Flush 3 Ml Syringe) 3 ml IVFLUSH QSHIFT [facility] Home Medications Medication Instructions Recorded Confirmed Last Taken Type albuterol sulfate 90 mcg/actuation 2 puff INHALATION Q6H PRN 10/06/20 02/07/22 Unknown History aerosol inhaler (ProAir HFA) aspirin 81 mg tablet,delayed 81 mg PO DAILY 10/06/20 02/07/22 02/07/22 History release (Adult Low Dose Aspirin) Physical Exam Vital Signs and Narrative: Vital Signs: Last Vital Signs Temp 96 F L 02/07/22 15:07 Pulse 82 02/07/22 16:25 Resp 16 02/07/22 16:25 BP 113/61 02/07/22 16:25 Pulse Ox 96 02/07/22 16:25 BMI result Body Mass Index 24.7 Appearance: Alert.? Oriented X3.? not in distress.? Eyes: Pupils equal, round and reactive to light.? Sclera nonicteric.? ENT: Pharynx normal.? Moist mucous membranes. cvs: rrr, [id number] , no murmur res: clear to auscultation ,no rhonchii or wheezing abd: no rebound or guarding ,nt, bs present. ext pulses present , no cyanosis . neuro: axo3 , nonfocal. Results Labs CBC and Chem 7: 02/07/22 15:58 Labs: Laboratory Results - last 24 hr 02/07/22 02/07/22 02/07/22 15:58 15:58 15:58 Anion Gap 16 14 Estim Creat Clear Calc 50.0 51.4 Estimated GFR > 60 > 60 Random Glucose 126 H 121 H Calcium 9.2 D 9.1 Total Bilirubin 1.5 H AST 18 ALT 13 Alkaline Phosphatase 96 Troponin I High Sens < 3.5 Total Protein 6.8 Albumin 4.1 Lipase 49 Influenza Type A (RICK) Influenza Type B (RICK) Influenza A & B Note 02/07/22 16:04 Anion Gap Estim Creat Clear Calc Estimated GFR Random Glucose Calcium Total Bilirubin AST ALT Alkaline Phosphatase Troponin I High Sens Total Protein Albumin Lipase Influenza Type A (RICK) Negative Influenza Type B (RICK) Negative Influenza A & B Note See Note ECG Attestation: I personally reviewed and interpreted this ECG as follows: (EKG shows T-wave inversion in lateral leads .) Imaging Radiologist's Impressions: Impressions Chest X-Ray 02/07/22 16:04 IMPRESSION: No acute cardiopulmonary process. Assessment and Plan (1) Atrial fibrillation with rapid ventricular response: Status: Acute (2) Chest pain: Status: Acute Plan 86-year-old male with history of recent AFib, CAD, hypercholesteremia, diet- controlled diabetes: Came to the hospital because of AFib with RVR and chest tightness. 1. AFib with RVR: Patient received 1 dose of IV Cardizem and heart rate seems to be improved Repeat EKG Continue metoprolol and Eliquis 2. Chest tightness,? Also has EKG changes-question old-please see stress test report in 2018. Possible chest pressure related to AFib with RVR but patient has history of coronary artery disease also. Will trend troponin 1st troponin negative 2nd troponin ordered Continue aspirin, statin, metoprolol Patient is asymptomatic now, if patient has again chest pain will repeat EKG and troponin again. Cardiology evaluation and echo. cad: Continue aspirin, statin,bb 3. Hlp: Continue statin 4. Asthma: Continue home medication DVT prophylaxis: Continue Eliquis as above. Above management discussed with patient and patient's in detail and they both understand and in agreement with the above plan, time spent 70 minute. Quality Stroke Does the patient have a stroke diagnosis?: No VTE Prior VTE?: No VTE Risk Level:: Medical - moderate - high VTE Device Contraindication: N/A - Device Ordered VTE Drug Contraindication: N/A - Med Ordered
[2022-02-07] MEDS: Apixaban 5 MG TABLET PO (19:36)
[2022-02-07] MEDS: Metoprolol Tartrate 50 MG TABLET PO (19:36)
[2022-02-07] MEDS: Aspirin Enteric Coated 81 MG TABLET.DR PO (19:36)
[2022-02-07 19:45] LABS: Troponin-I High Sensitivity 3.8 ng/L (<3.5-35.0)
[2022-02-07 20:10] LABS: COVID-19 Test Negative (Negative); IDNOW Serial# 16C4AD1C
[2022-02-07 20:55] VITALS: BP 118/76; PULSE 93; RESP 12; O2SAT 97
[2022-02-07] MEDS: 0.9 % Sodium Chloride Flush 3 ML SYRINGE IVFLUSH (23:21)
[2022-02-08] VITALS (12 sets, daily range): BP systolic 97–143; BP diastolic 54–86; PULSE 61–105; RESP 14–20; TEMP 36.1–36.9; O2SAT 93–99
--- NOTE | 2022-02-08 | ECG_ITS ---
Test Reason : POST OP Blood Pressure : / mmHG Vent. Rate : 082 BPM Atrial Rate : 082 BPM P-R Int : 164 ms QRS Dur : 086 ms QT Int : 428 ms P-R-T Axes : 085 037 086 degrees QTc Int : 500 ms Sinus rhythm with Premature supraventricular complexes Low voltage QRS Nonspecific ST and T wave abnormality Abnormal ECG When compared with ECG of 07-FEB-2022 19:27, Sinus rhythm has replaced Atrial flutter Nonspecific T wave abnormality, worse in Anterior leads Referred By: Marco Pinon Electronically Signed By:MARCO PINON MD
--- NOTE | 2022-02-08 00:25 | PC.NURSE ---
PATIENT WAS ASSISTED TO THE BATHROOM BY THIS PCT .
--- NOTE | 2022-02-08 01:06 | PC.NURSE ---
Pt sleeping, chest rise and fall observed, Pt on hall monitor, Pt needs met, call light in reach, this RN continues to monitor
[2022-02-08 06:24] LABS: MANUAL DIFF FLAG NO
[2022-02-08 06:25] LABS: Basophils Percent Auto 0.4 % (0-2); Eosinophils Absolute Auto 0.2 X10*3/uL (0.0-0.4); Eosinophils Percent Auto 2.9 % (0-4); Hematocrit 39.9 % (42.0-52.0); Hemoglobin 12.7 g/dl (14.0-18.0); Imm Gran Abs Auto 0.01 X10*3/uL (0.00-0.03); Imm Gran Pct Auto 0.1 % (0.0-0.4); Lymphocytes Absolute Auto 1.7 X10*3/uL (1.2-4.9); Lymphocytes Percent Auto 25.7 % (20-40); Mean Corpuscular HGB Conc 31.8 g/dl (31.0-36.0); Mean Corpuscular Hemoglobin 27.5 pg (27.0-33.0); Mean Corpuscular Volume 86.6 fL (80.0-98.0); Mean Platelet Volume 10.9 fL (9.4-12.4); Monocytes Absolute Auto 0.8 X10*3/uL (0.1-1.2); Monocytes Percent Auto 12.4 % (2-11); Neutrophils Percent Auto 58.5 % (45-73); Platelet Count 185 X10*3/uL (160-400); Red Blood Count 4.61 X10*6/uL (4.60-5.80); Red Cell Distribution Width 13.4 % (11.0-16.0); White Blood Count 6.8 X10*3/uL (4.8-10.8)
[2022-02-08 06:43] LABS: Anion Gap 11 (12-20); Blood Urea Nitrogen 17 mg/dL (9-16); Calcium 8.8 mg/dL (8.4-10.2); Carbon Dioxide 27 mmol/L (22-29); Chloride 106 mmol/L (96-108); Creatinine Clr Calc Pharmacy 55.8; Estimated Glomerular Filt Rate > 60; Glucose Random 118 mg/dL (60-115); Potassium 3.7 mmol/L (3.3-5.1); Sodium 140 mmol/L (135-145)
[2022-02-08] MEDS: Metoprolol Tartrate 50 MG TABLET PO (07:34)
[2022-02-08] MEDS: amLODIPine Besylate 5 MG TABLET PO (07:34)
[2022-02-08] MEDS: Apixaban 5 MG TABLET PO ×2 (07:35→20:21)
[2022-02-08] MEDS: Aspirin Enteric Coated 81 MG TABLET.DR PO (07:35)
[2022-02-08] MEDS: Atorvastatin Calcium 40 MG TABLET PO (07:35)
[2022-02-08] MEDS: 0.9 % Sodium Chloride Flush 3 ML SYRINGE IVFLUSH ×2 (07:35→20:22)
--- NOTE | 2022-02-08 08:19 | P.PNIM_ITS ---
Subjective Subjective Date of Service: 02/08/22 Interval History: chest pain , afib Review of Systems Patient states chest pressure seems to be improving, also heart rate improving somewhat Denies any chest pain or shortness of breath Physical Exam Vital Signs: Vital Signs: Last Vital Signs Temp 98.2 F 02/08/22 05:45 Pulse 104 H 02/08/22 07:36 Resp 14 02/08/22 07:36 BP 140/78 H 02/08/22 07:36 Pulse Ox 97 02/08/22 07:36 BMI result Body Mass Index 24.7 Appearance: Alert.? Oriented X3.? not in distress.? cvs:irregular rythem, [id number] . res: clear to auscultation ,no rhonchii or wheezing abd: no rebound or guarding ,nt, bs present. ext pulses present , no cyanosis . neuro: axo3 , nonfocal. Objective Data Active Medications Albuterol Sulfate (Albuterol Sulfate 90 Mcg 8 Gm Inhaler) 2 puff INHALE Q6H PRN PRN Reason: Shortness Of Breath Amlodipine Besylate (Amlodipine Besylate 5 Mg Tablet) 5 mg PO DAILY [facility]; Protocol Last Admin: 02/08/22 07:34 Dose: 5 mg Documented by: ZITA Apixaban (Apixaban 5 Mg Tablet) 5 mg PO BID [facility] Last Admin: 02/08/22 07:35 Dose: 5 mg Documented by: ZITA Aspirin (Aspirin Enteric Coated 81 Mg Tablet.) 81 mg PO DAILY [facility] Last Admin: 02/08/22 07:35 Dose: 81 mg Documented by: ZITA Atorvastatin Calcium (Atorvastatin Calcium 40 Mg Tablet) 40 mg PO DAILY [facility] Last Admin: 02/08/22 07:35 Dose: 40 mg Documented by: ZITA Metoprolol Tartrate (Metoprolol Tartrate 50 Mg Tablet) 50 mg PO BID [facility]; Protocol Last Admin: 02/08/22 07:34 Dose: 50 mg Documented by: ZITA Pharmacy Consult (Consult Rx Perform Med Rec) 1 each MISCELLANE ONCE PRN PRN Reason: Consult order Pharmacy Consult (Consult Rx Perform Med Rec) 1 each MISCELLANE ONCE PRN PRN Reason: Consult order Sodium Chloride (0.9 % Sodium Chloride Flush 3 Ml Syringe) 3 ml IVFLUSH QSHIFT [facility] Last Admin: 02/08/22 07:35 Dose: 3 ml Documented by: ZITA Labs CBC & Chem 7: 02/08/22 06:08 02/08/22 06:08 Labs: Laboratory Results - last 24 hr 02/07/22 02/07/22 02/07/22 15:58 15:58 15:58 MCV MCH MCHC RDW Plt Count MPV Immature Gran % (Auto) Neut % (Auto) Lymph % (Auto) Perry % (Auto) Eos % (Auto) Baso % (Auto) Lymph # (Auto) Perry # (Auto) Eos # (Auto) Baso # (Auto) Abs Immat Gran (auto) Absolute Neuts (auto) Absolute Nucleated RBC Nucleated RBC % (auto) Anion Gap 16 14 Estim Creat Clear Calc 50.0 51.4 Estimated GFR > 60 > 60 Random Glucose 126 H 121 H Calcium 9.2 D 9.1 Total Bilirubin 1.5 H AST 18 ALT 13 Alkaline Phosphatase 96 Troponin I High Sens < 3.5 Total Protein 6.8 Albumin 4.1 Lipase 49 COVID-19 (VIVEK) COVID-19 Clin Com Influenza Type A (RICK) Influenza Type B (RICK) Influenza A & B Note 02/07/22 02/07/22 02/07/22 16:04 19:17 19:40 MCV MCH MCHC RDW Plt Count MPV Immature Gran % (Auto) Neut % (Auto) Lymph % (Auto) Perry % (Auto) Eos % (Auto) Baso % (Auto) Lymph # (Auto) Perry # (Auto) Eos # (Auto) Baso # (Auto) Abs Immat Gran (auto) Absolute Neuts (auto) Absolute Nucleated RBC Nucleated RBC % (auto) Anion Gap Estim Creat Clear Calc Estimated GFR Random Glucose Calcium Total Bilirubin AST ALT Alkaline Phosphatase Troponin I High Sens 3.8 Total Protein Albumin Lipase COVID-19 (VIVEK) Negative COVID-19 Clin Com See Note Influenza Type A (RICK) Negative Influenza Type B (RICK) Negative Influenza A & B Note See Note 02/08/22 02/08/22 06:08 06:08 MCV 86.6 MCH 27.5 MCHC 31.8 RDW 13.4 Plt Count 185 D MPV 10.9 Immature Gran % (Auto) 0.1 Neut % (Auto) 58.5 Lymph % (Auto) 25.7 Perry % (Auto) 12.4 H Eos % (Auto) 2.9 Baso % (Auto) 0.4 Lymph # (Auto) 1.7 Perry # (Auto) 0.8 Eos # (Auto) 0.2 Baso # (Auto) 0.0 Abs Immat Gran (auto) 0.01 Absolute Neuts (auto) 4.0 Absolute Nucleated RBC 0.000 Nucleated RBC % (auto) 0.0 Anion Gap 11 L Estim Creat Clear Calc 55.8 Estimated GFR > 60 Random Glucose 118 H Calcium 8.8 Total Bilirubin AST ALT Alkaline Phosphatase Troponin I High Sens Total Protein Albumin Lipase COVID-19 (VIVEK) COVID-19 Clin Com Influenza Type A (RICK) Influenza Type B (RICK) Influenza A & B Note Assessment and Plan (1) Atrial fibrillation with rapid ventricular response: Status: Acute (2) Chest pain: Status: Acute Plan 86-year-old male with history of recent AFib, CAD, hypercholesteremia, diet- controlled diabetes: Came to the hospital because of AFib with RVR and chest tightness. 1. AFib with RVR: going for cardiversion-will start multaq after that and adjust metoprolol 25 mg bid and Eliquis 2. Chest tightness: Seen by Cardiology: Symptoms are more likely secondary to AFib trops neg Hold aspirin, statin, metoprolol, continue Eliquis. 3. Hlp:? Continue statin 4. Asthma:? Continue home medication DVT prophylaxis:? Continue Eliquis as above. Quality Stroke Does the patient have a stroke diagnosis?: No VTE Prior VTE?: No VTE Risk Level:: Medical - moderate - high VTE Device Contraindication: N/A - Device Ordered VTE Drug Contraindication: N/A - Med Ordered
--- NOTE | 2022-02-08 09:14 | PC.NURSE ---
Patient maintains NPO status, AM meds given with small sip of water. Seen by cardiology.
--- NOTE | 2022-02-08 09:45 | P.CONCA_ITS ---
History of Present Illness History of Present Illness Date of Service: 02/08/22 Requesting physician: Tony Luo Consult reason: atrial fibrillation Chief complaint: Afib, chest pain Narrative: I was requested to see Juan in cardiology consultation today for persistent atrial fibrillation. Patient saw Dr. Harley yesterday for an urgent visit after being referred by Dr. Kimball, patient chronically follows with Dr. Harley. Yesterday came to the office because he was recently noted to be in persistent atrial fibrillation rapid ventricular response an yesterday came to the office because he was having increasing symptoms of exertional chest pain or shortness of breath. Patient was therefore admitted as his rate was unco ntrolled and he was symptomatic. His troponins were flat and negative. EKG showed ST depression however these were most likely rate related. He was admitted with rate control and his symptoms are better but still persistently present and has mild chest pain and shortness of breath. He has prior history of CAD with stenting of the RCA territory with nonobstructive disease in the other segments, hypertension, pulmonary hypertension related to LV diastolic dysfunction which is restrictive pattern. He was noted to have atrial fibrillation after visiting Dr. Kimball on a routine visit on January 30 as per him. He started Eliquis on February 04. Has been taking religiously since then. No prior history of atrial fibrillation. No neurologic symptoms. Denies orthopnea, PND, leg edema. Review of Systems Constitutional: Constitutional: Reports no additional constitutional complaints Eyes: Eyes: Reports no additional eye complaints Cardiovascular: Cardiovascular: Reports chest pain, Denies leg edema, Denies lightheadedness, Denies palpitations, Reports dyspnea and Denies orthopnea Respiratory: Respiratory: Reports no additional respiratory complaints and Reports dyspnea Gastrointestinal: Gastrointestinal: Reports no additional gastrointestinal complaints Genitourinary: Genitourinary: Reports no additional male genitourinary complaints Musculoskeletal: Musculoskeletal: Reports no additional musculoskeletal complaints Integumentary/Breasts: Skin/Breast: Reports system reviewed and no additional complaints, except as docu Neurologic: Reports system reviewed and no additional complaints, except as documented Psychiatric: Psychiatric: Reports no additional psychiatric complaints Endocrine: Endocrine: Reports no additional endocrine complaints and Denies palpitations Hematologic/Lymphatic: Hematologic/Lymphatic: Reports no additional hematologic/lymphatic complaints Allergic/Immunologic: Allergic/Immunologic: Reports no additional allergic/immunologic complaints [facility] Past Medical History Medical History Asthma Atherosclerotic cardiovascular disease Coronary artery disease Diabetic neuropathy Diastolic dysfunction Essential hypertension Hypercholesterolemia Iron deficiency anemia Left renal stone Pulmonary hypertension Type 2 diabetes mellitus with hyperglycemia Vitamin D deficiency Family History Family History Father CVD (cardiovascular disease) Myocardial infarction Mother Hypertension Heart disease Diabetes CVD (cardiovascular disease) Sister No problems noted. Sister Diabetes Surgical History Surgical History History of appendectomy History of inguinal hernia repair History of lymph node excision Social History Social History Housing: House Alcohol intake: never Patient Tobacco Use Status: Former Tobacco user Tobacco use type: Cigarette e-Cigarette/Vaping Use: Never Used Second Hand Smoke Exposure: No Advance Directives: No Advance Directives Information Provided: No service: Yes Current occupational status: retired Cognitive needs: No Hearing needs: Yes Vision needs: Yes Meds Allergies Allergy/AdvReac Type Severity Reaction Status Date / Time lisinopril Allergy Unknown hyperkalemi Verified 02/07/22 14:42 a Active Medications: Current Medications Albuterol Sulfate (Albuterol Sulfate 90 Mcg 8 Gm Inhaler) 2 puff INHALE Q6H PRN PRN Reason: Shortness Of Breath Amlodipine Besylate (Amlodipine Besylate 5 Mg Tablet) 5 mg PO DAILY [facility]; Protocol Last Admin: 02/08/22 07:34 Dose: 5 mg Documented by: Apixaban (Apixaban 5 Mg Tablet) 5 mg PO BID [facility] Last Admin: 02/08/22 07:35 Dose: 5 mg Documented by: Aspirin (Aspirin Enteric Coated 81 Mg Tablet.) 81 mg PO DAILY [facility] Last Admin: 02/08/22 07:35 Dose: 81 mg Documented by: Atorvastatin Calcium (Atorvastatin Calcium 40 Mg Tablet) 40 mg PO DAILY [facility] Last Admin: 02/08/22 07:35 Dose: 40 mg Documented by: Metoprolol Tartrate (Metoprolol Tartrate 50 Mg Tablet) 50 mg PO BID [facility]; Protocol Last Admin: 02/08/22 07:34 Dose: 50 mg Documented by: Pharmacy Consult (Consult Rx Perform Med Rec) 1 each MISCELLANE ONCE PRN PRN Reason: Consult order Pharmacy Consult (Consult Rx Perform Med Rec) 1 each MISCELLANE ONCE PRN PRN Reason: Consult order Sodium Chloride (0.9 % Sodium Chloride Flush 3 Ml Sy[facility]) [facility] Last Admin: 02/08/22 07:35 Dose: 3 ml Documented by: Home Medications Medication Instructions Recorded Confirmed Last Taken Type albuterol sulfate 90 mcg/actuation 2 puff INHALATION Q6H PRN 10/06/20 02/07/22 Unknown History aerosol inhaler (ProAir HFA) aspirin 81 mg tablet,delayed 81 mg PO DAILY 10/06/20 02/07/22 02/07/22 History release (Adult Low Dose Aspirin) Physical Exam Vital Signs: Vital Signs: Last Vital Signs Temp 98.2 F 02/08/22 05:45 Pulse 104 H 02/08/22 07:36 Resp 14 02/08/22 07:36 BP 140/78 H 02/08/22 07:36 Pulse Ox 97 02/08/22 07:36 BMI result Body Mass Index 24.7 Const: General: cooperative, comfortable, no acute distress, well developed, alert and awake Nutritional Appearance: average body habitus Orientat ion/consciousness: patient oriented x3 Limitations: no limitations HEENT: Head: Yes normocephalic and Yes atraumatic Neck: Neck: Yes trachea midline, Yes supple and Yes no JVD Chest: Chest palpation & inspection: normal inspection of the chest Resp: Effort & Inspection: normal respiratory effort Auscultation: clear to auscultation bilaterally Cardio: Jugular venous distension: no JVD Palpation: normal PMI Rhythm: abnormal rhythm irregularly irregular Heart sounds: S1 normal heart sound present, S2 normal heart sound present, no click, no gallops, no murmurs and no rubs GI: Auscultation: normal bowel sounds Skin: General skin exam: no rashes or lesions noted Neuro: General: patient oriented x3 and no focal motor deficits Extrem: General: Yes no clubbing, cyanosis or edema Psych: Appearance: grossly normal Objective Labs and Meds Result diagrams: 02/08/22 06:08 02/08/22 06:08 Lab results: Laboratory Results - last 24 hr 02/07/22 02/07/22 02/07/22 15:58 15:58 15:58 WBC RBC Hgb Hct MCV MCH MCHC RDW Plt Count MPV Immature Gran % (Auto) Neut % (Auto) Lymph % (Auto) [place] % (Auto) Eos % (Auto) Baso % (Auto) Lymph # (Auto) [place] # (Auto) Eos # (Auto) Baso # (Auto) Abs Immat Gran (auto) Absolute Neuts (auto) Absolute Nucleated RBC Nucleated RBC % (auto) Sodium 143 142 Potassium 4.5 D 4.6 Chloride 106 106 Carbon Dioxide 26 27 Anion Gap 16 14 BUN 19 H 18 H Creatinine 1.06 1.03 Estim Creat Clear Calc 50.0 51.4 Estimated GFR > 60 > 60 Random Glucose 126 H 121 H Calcium 9.2 D 9.1 Total Bilirubin 1.5 H AST 18 ALT 13 Alkaline Phosphatase 96 Troponin I High Sens < 3.5 Total Protein 6.8 Albumin 4.1 Lipase 49 COVID-19 (VIVEK) COVID-19 Clin Com Influenza Type A (RICK) Influenza Type B (RICK) Influenza A & B Note 02/07/22 02/07/22 02/07/22 16:04 19:17 19:40 WBC RBC Hgb Hct MCV MCH MCHC RDW Plt Count MPV Immature Gran % (Auto) Neut % (Auto) Lymph % (Auto) [place] % (Auto) Eos % (Auto) Baso % (Auto) Lymph # (Auto) [place] # (Auto) Eos # (Auto) Baso # (Auto) Abs Immat Gran (auto) Absolute Neuts (auto) Absolute Nucleated RBC Nucleated RBC % (auto) Sodium Potassium Chloride Carbon Dioxide Anion Gap BUN Creatinine Estim Creat Clear Calc Estimated GFR Random Glucose Calcium Total Bilirubin AST ALT Alkaline Phosphatase Troponin I High Sens 3.8 Total Protein Albumin Lipase COVID-19 (VIVEK) Negative COVID-19 Clin Com See Note Influenza Type A (RICK) Negative Influenza Type B (RICK) Negative Influenza A & B Note See Note 02/08/22 02/08/22 06:08 06:08 WBC 6.8 RBC 4.61 Hgb 12.7 L Hct 39.9 L MCV 86.6 MCH 27.5 MCHC 31.8 RDW 13.4 Plt Count 185 D MPV 10.9 Immature Gran % (Auto) 0.1 Neut % (Auto) 58.5 Lymph % (Auto) 25.7 [place] % (Auto) 12.4 H Eos % (Auto) 2.9 Baso % (Auto) 0.4 Lymph # (Auto) 1.7 [place] # (Auto) 0.8 Eos # (Auto) 0.2 Baso # (Auto) 0.0 Abs Immat Gran (auto) 0.01 Absolute Neuts (auto) 4.0 Absolute Nucleated RBC 0.000 Nucleated RBC % (auto) 0.0 Sodium 140 Potassium 3.7 Chloride 106 Carbon Dioxide 27 Anion Gap 11 L BUN 17 H Creatinine 0.95 Estim Creat Clear Calc 55.8 Estimated GFR > 60 Random Glucose 118 H Calcium 8.8 Total Bilirubin AST ALT Alkaline Phosphatase Troponin I High Sens Total Protein Albumin Lipase COVID-19 (VIVEK) COVID-19 Clin Com Influenza Type A (RICK) Influenza Type B (RICK) Influenza A & B Note Imaging Radiologist's impression: Impressions Chest X-Ray 02/07/22 16:04 IMPRESSION: No acute cardiopulmonary process. Assessment and Plan (1) Atrial fibrillation with rapid ventricular response: Status: Acute Recent onset atrial fibrillation rapid ventricular response highly symptomatic leading to hospitalization with chest pain and shortness of breath. Despite rate control patient remained symptomatic today. Will require rhythm control. However given that he was not anticoagulated right away any onset of atrial fibrillation is not clearly known, will pursue [facility] guided cardioversion later today. Discussed with patient about the risks, benefits, alternatives 2nd open to procedure. He understands agrees. Most likely require antiarrhythmic drug therapy to maintain rhythm. Not in overt heart failure and if LV ejection fraction appears normal on [facility] will consider use of Multaq as well as toxic medication. Cannot use flecainide given his underlying coronary artery disease. Alternatives include sotalol and amiodarone. This was discussed with him in details. He understands and agrees. Continue full oral anticoagulation with El iquis. (2) Coronary artery disease: Qualifiers: Coronary Disease-Associated Artery/Lesion type: [place] artery [place] vs. transplanted heart: [place] heart Associated angina: without angina Qualified Code(s): I25.10 - Atherosclerotic heart disease of [place] coronary artery without angina pectoris Status: Acute CAD with remote stenting. Symptoms chest pain and shortness of breath are related to his atrial fibrillation with underlying diastolic dysfunction and not related to acute coronary syndrome. Although he has EKG changes these are most suggestive of LV strain and or rate-related. There is no evidence of acute coronary syndrome. Pursue rhythm control as above. Continue aggressive control blood pressure. Continue high-intensity statin therapy. Hold off on low-dose aspirin therapy given that he is normal on full oral anticoagulation. Eventually may require stress test to evaluate for myocardial ischemia. Will follow with patient Procedures Date of Service Date of Service: 02/08/22
--- NOTE | 2022-02-08 11:52 | MHC.CM.PN ---
CM MET WITH PT AND WHO WAS AT BEDSIDE PT LIVES AT HOME WITH AND IS INDEPENDENT WITH CARE AT BASELINE PT DENIES USE OF DME OR HOME/COMMUNITY SERVICES PT CONFIRMS HIS PCP IS RAMIREZ CARLISLE PT REPORTS HE HAS A HCP, COPY REQUESTED PT REPORTS HE IS COVID-19 VACCINATED OBSERVATION NOTICE DELIVERED, COPY SENT TO [facility] CURRENT DC PLAN IS HOME WITH NO SERVICES TO TRANSPORT
[2022-02-08 12:19] LABS: Glucose, Whole Blood 92 mg/dL (60-115)
--- NOTE | 2022-02-08 12:51 | P.CONAN_ITS ---
HPI - Anesthesia Eval Consult details Narrative: Rapid A-fib PMFSH Active Problems Active Problems: All Active Problems (Updated 02/07/22 @ 18:22 by Erich Arango MD) Atrial fibrillation with rapid ventricular response (Acute) Chest pain (Acute) Atrial fibrillation with rapid ventricular response (Acute) Hyperkalemia (Acute) Atrial fibrillation and flutter (Acute) Arrhythmia (Acute) Chest pain (Acute) Iron deficiency anemia (Acute) Pulmonary hypertension (Acute) Diastolic dysfunction (Acute) Atherosclerotic cardiovascular disease (Acute) Essential hypertension (Acute) Hypercholesterolemia (Acute) Asthma (Acute) Coronary artery disease (Acute) Type 2 diabetes mellitus with hyperglycemia (Acute) Past Medical History Medical History Asthma Atherosclerotic cardiovascular disease Coronary artery disease Diabetic neuropathy Diastolic dysfunction Essential hypertension Hypercholesterolemia Iron deficiency anemia Left renal stone Pulmonary hypertension Type 2 diabetes mellitus with hyperglycemia Vitamin D deficiency Family History Family History Father CVD (cardiovascular disease) Myocardial infarction Mother Hypertension Heart disease Diabetes CVD (cardiovascular disease) Sister No problems noted. Sister Diabetes Family history of problems with anesthesia: No Surgical History Surgical History History of appendectomy History of inguinal hernia repair History of lymph node excision History of Problems with Anesthesia: No Social History Social History Housing: House Alcohol intake: never Patient Tobacco Use Status: Former Tobacco user Tobacco use type: Cigarette e-Cigarette/Vaping Use: Never Used Second Hand Smoke Exposure: No Use of substances other than those prescribed or required for medical reasons: No Are you DNR?: No Advance Directives: No Advance Directives Information Provided: No Advance Directives on File: No service: No Current occupational status: retired Cognitive needs: No Hearing needs: Yes Vision needs: Yes Meds Allergies Allergy/AdvReac Type Severity Reaction Status Date / Time lisinopril Allergy Unknown hyperkalemi Verified 02/07/22 14:42 a Active Medications: Current Medications Albuterol Sulfate (Albuterol Sulfate 90 Mcg 8 Gm Inhaler) 2 puff INHALE Q6H PRN PRN Reason: Shortness Of Breath Amlodipine Besylate (Amlodipine Besylate 5 Mg Tablet) 5 mg PO DAILY [facility]; Protocol Last Admin: 02/08/22 07:34 Dose: 5 mg Documented by: Apixaban (Apixaban 5 Mg Tablet) 5 mg PO BID [facility] Last Admin: 02/08/22 07:35 Dose: 5 mg Documented by: Aspirin (Aspirin Enteric Coated 81 Mg Tablet.) 81 mg PO DAILY [facility] Last Admin: 02/08/22 07:35 Dose: 81 mg Documented by: Atorvastatin Calcium (Atorvastatin Calcium 40 Mg Tablet) 40 mg PO DAILY [facility] Last Admin: 02/08/22 07:35 Dose: 40 mg Documented by: Metoprolol Tartrate (Metoprolol Tartrate 50 Mg Tablet) 50 mg PO BID [facility]; Protocol Last Admin: 02/08/22 07:34 Dose: 50 mg Documented by: Pharmacy Consult (Consult Rx Perform Med Rec) 1 each MISCELLANE ONCE PRN PRN Reason: Consult order Pharmacy Consult (Consult Rx Perform Med Rec) 1 each MISCELLANE ONCE PRN PRN Reason: Consult order Sodium Chloride (0.9 % Sodium Chloride Flush 3 Ml Syringe) 3 ml IVFLUSH QSHIFT [facility] Last Admin: 02/08/22 07:35 Dose: 3 ml Documented by: Home Medications Medication Instructions Recorded Confirmed Last Taken Type albuterol sulfate 90 mcg/actuation 2 puff INHALATION Q6H PRN 10/06/20 02/07/22 Unknown History aerosol inhaler (ProAir HFA) aspirin 81 mg tablet,delayed 81 mg PO DAILY 10/06/20 02/07/22 02/07/22 History release (Adult Low Dose Aspirin) Exam Exam Date and Time: February 08, 2022 125 Height,Weight and Vital Signs: Height 5 ft 9 in Weight 76.204 kg Last Vital Signs Temp 97.3 F 02/08/22 12:05 Pulse 105 H 02/08/22 12:05 Resp 16 02/08/22 12:05 BP 135/86 02/08/22 12:05 Pulse Ox 98 02/08/22 12:05 Pertinent Lab Results Pertinent Lab Results: Laboratory Tests 02/07/22 02/07/22 02/07/22 15:58 15:58 15:58 WBC RBC Hgb Hct MCV MCH MCHC RDW Plt Count MPV Immature Gran % (Auto) Neut % (Auto) Lymph % (Auto) [place] % (Auto) Eos % (Auto) Baso % (Auto) Lymph # (Auto) [place] # (Auto) Eos # (Auto) Baso # (Auto) Abs Immat Gran (auto) Absolute Neuts (auto) Absolute Nucleated RBC Nucleated RBC % (auto) Sodium 143 142 Potassium 4.5 D 4.6 Chloride 106 106 Carbon Dioxide 26 27 Anion Gap 16 14 BUN 19 H 18 H Creatinine 1.06 1.03 Estim Creat Clear Calc 50.0 51.4 Estimated GFR > 60 > 60 POC Glucose Random Glucose 126 H 121 H Calcium 9.2 D 9.1 Total Bilirubin 1.5 H AST 18 ALT 13 Alkaline Phosphatase 96 Troponin I High Sens < 3.5 Total Protein 6.8 Albumin 4.1 Lipase 49 COVID-19 (VIVEK) COVID-19 Clin Com Influenza Type A (RICK) Influenza Type B (RICK) Influenza A & B Note 02/07/22 02/07/22 02/07/22 16:04 19:17 19:40 WBC RBC Hgb Hct MCV MCH MCHC RDW Plt Count MPV Immature Gran % (Auto) Neut % (Auto) Lymph % (Auto) [place] % (Auto) Eos % (Auto) Baso % (Auto) Lymph # (Auto) [place] # (Auto) Eos # (Auto) Baso # (Auto) Abs Immat Gran (auto) Absolute Neuts (auto) Absolute Nucleated RBC Nucleated RBC % (auto) Sodium Potassium Chloride Carbon Dioxide Anion Gap BUN Creatinine Estim Creat Clear Calc Estimated GFR POC Glucose Random Glucose Calcium Total Bilirubin AST ALT Alkaline Phosphatase Troponin I High Sens 3.8 Total Protein Albumin Lipase COVID-19 (VIVEK) Negative COVID-19 Clin Com See Note Influenza Type A (RICK) Negative Influenza Type B (RICK) Negative Influenza A & B Note See Note 02/08/22 02/08/22 02/08/22 06:08 06:08 12:15 WBC 6.8 RBC 4.61 Hgb 12.7 L Hct 39.9 L MCV 86.6 MCH 27.5 MCHC 31.8 RDW 13.4 Plt Count 185 D MPV 10.9 Immature Gran % (Auto) 0.1 Neut % (Auto) 58.5 Lymph % (Auto) 25.7 [place] % (Auto) 12.4 H Eos % (Auto) 2.9 Baso % (Auto) 0.4 Lymph # (Auto) 1.7 [place] # (Auto) 0.8 Eos # (Auto) 0.2 Baso # (Auto) 0.0 Abs Immat Gran (auto) 0.01 Absolute Neuts (auto) 4.0 Absolute Nucleated RBC 0.000 Nucleated RBC % (auto) 0.0 Sodium 140 Potassium 3.7 Chloride 106 Carbon Dioxide 27 Anion Gap 11 L BUN 17 H Creatinine 0.95 Estim Creat Clear Calc 55.8 Estimated GFR > 60 POC Glucose 92 Random Glucose 118 H Calcium 8.8 Total Bilirubin AST ALT Alkaline Phosphatase Troponin I High Sens Total Protein Albumin Lipase COVID-19 (VIVEK) COVID-19 Clin Com Influenza Type A (RICK) Influenza Type B (RICK) Influenza A & B Note Airway Mallampati Class: II TM Dist: >3cm Neck ROM: Full Denture: Upper and Lower Loose/Missing/Broken Teeth: Yes Heart: irreg irreg s1s2 Lungs: cta b/l Assessment and Plan Assessment Anesthesia Assessment: Anesthesia Plan Discussed and Chart Reviewed Final Anesthetic Review Family History of Problems with Anesthesia: No History of Problems with Anesthesia: No NPO: Yes ASA Class: IV Final Preanesthetic Review: No Changes in Pt Med Stat, Meds/Allgs Chart Reviewed, Consent Obtained/Reviewed and Anes Risks/Benef Reviewed Patient Risk: High Procedure Risk: Intermediate Assessment/Block/Sedation in SS: Assess/Block/Sedation-SS Anesthetic Plan Anesthetic Plan: MAC: and Agree w/ Assess. and Plan Disposition: Standard PACU
--- NOTE | 2022-02-08 13:04 | CA_ITS ---
Transesophageal Echocardiogram Patient (Last, First, Middle): Juan Giles F Gender: Male Date of : 1935 Age: 86 Procedure Date: 02/08/2022 Procedure Type: Transesophageal Echocardiogram Location: [facility] Height: 167.64 cm Weight: kg Breakfast Attendant: MARY JO Referring MD: Marco Pinon MD Men'S Designer: Marco Pinon MD Symptoms: Pre cardioversion to rule out intracardiac thrombi Conclusion: ??? 1. Normal LV systolic function 2. Left atrial enlargement with evidence of smoke but without evidence of any thrombi within the cavity or within left atrial appendage 3. Mild mitral regurgitation 4. No intracardiac vegetations or masses 5. [id number] atherosclerotic changes noted in the descending and transthoracic aorta 6. No gross pericardial abnormality Findings Procedure Information Consent was obtained prior to the procedure. Pre [facility] oral cavity was checked and revealed no overcrowding. The adult 3D probe was passed with no difficulty. Left Ventricle Normal left ventricular size, thickness, and systolic function. The visually estimated ejection fraction is between 55-60%. Diastolic function is indeterminate on the basis of available data. esophageal views were limited due to airway artifact. On transgastric views left ventricular systolic function appears to be normal. There are no intra left ventricular masses or thrombi noted Right Ventricle Normal right ventricular cavity size. There is normal right ventricular systolic function. Atria The left atrium is moderately dilated. There is lipomatous hypertrophy of the interatrial septum. There is no evidence of interatrial shunt. there smoke formation seen in the left atrium. No significant thrombi or masses seen in the left atrium. The left atrial appendage was identified in multiple views. There are no thrombi or masses seen with the left atrial appendage. The left atrial appendage ejection velocity was slightly diminished at 39 centimeters/second. Left upper, right upper and right lower pulmonary vein drain normally into the left atrium. Right atrium was identified in multiple views. The SVC was identified normally draining into the right atrium. A right atrial appendage was free of any thrombi. No masses or thrombi seen with the right atrium cavity. Interatrial septum is intact. Aortic Valve There is mild thickening of the aortic valve. There is no aortic valve stenosis. There is no evidence of a mass on the aortic valve. There is no aortic valve regurgitation. Mitral Valve There is mild anterior and posterior mitral leaflet thickening. There is mild mitral valve regurgitation. There is no mitral valve stenosis. There is no mass noted on the mitral valve. Pulmonic Valve The pulmonic valve is normal. There is trace to mild pulmonic valve regurgitation. Tricuspid Valve Normal tricuspid valve structure. There is trace tricuspid valve regurgitation. There is no evidence of a mass on the tricuspid valve. Great Vessels All visible segments of the aorta are normal in size. The visualized portions of the pulmonary artery and branches are normal. [id number] atherosclerotic changes noted in the descending and transverse thoracic aorta Venous The inferior vena cava was not well visualized. Pericardium/Pleural There is no evidence of pericardial effusion. Updated by Marco Pinon on 04:31 PM with Status of Final Marco Pinon MD electronically signed on 02/08/2022 4:31:35 PM with status of Final
--- NOTE | 2022-02-08 13:05 | MHC.SHP ---
Pre-Procedural Eval Section A Date of Service: 02/08/22 The patient is an INPATIENT: Yes Changes since office visit: Yes Patient answered all questions; No Cold of Flu in the past 2 weeks, No New Medical Problems and No Changes in Medication The History & Physical has been completed within 30 days and I have reviewed it.: Yes Section B Chief Complaint: Afib, chest pain Allergies: Allergies Allergy/AdvReac Type Severity Reaction Status Date / Time lisinopril Allergy Unknown hyperkalemi Verified 02/07/22 14:42 a Plan I have reviewed the history and physical and performed a pertinent physical examination on my patient. No changes have occurred unless specified.
--- NOTE | 2022-02-08 14:32 | HO.CARDIVERS ---
Cardioversion Procedure Note Cardioversion Date of Procedure: 02/08/2022 Ordering Provider: Myself Performing Provider: Myself Indication for Procedure: Persistent symptomatic new onset atrial fibrillation Pre-Op Diagnosis: Same Post-Op Diagnosis: Sinus rhythm Performed with Transesophageal Echo: Yes SUKUMAR findings (if SUKUMAR Performed): Dictated separately History: See my consult note Consent: Verbal and Written consent was obtained from the patient before starting and after performing SUKUMAR and confirming no clots as well as confirming oral anticoagulation use The patient was made aware of the risk of synchronized cardioversion including risk, benefits, alternatives and 2nd opinion Procedure: After consent obtained, cardioversion pads were attached in AP configuration and the patient was sedated by the anesthesia team. Once adequate sedation achieved, patient was delivered 200 joules of biphasic synchronized energy in anteroposterior configuration Complications: Non Impression: Successful conversion to sinus rhythm Recommendations: 1. 12 lead EKG 2. Start Multaq 400 mg b.i.d. 3. Continue indefinitely Eliquis 5 mg b.i.d. 4. Observe overnight
[2022-02-08] MEDS: Dronedarone HCl 400 MG TABLET PO ×2 (14:56→20:21)
[2022-02-08] MEDS: Metoprolol Tartrate 25 MG TABLET PO (20:21)
--- NOTE | 2022-02-09 | ECG_ITS ---
Test Reason : afib Blood Pressure : / mmHG Vent. Rate : 067 BPM Atrial Rate : 067 BPM P-R Int : 172 ms QRS Dur : 092 ms QT Int : 424 ms P-R-T Axes : 082 061 067 degrees QTc Int : 448 ms Sinus rhythm with Premature supraventricular complexes Nonspecific ST abnormality Abnormal ECG When compared with ECG of 08-FEB-2022 14:34, Nonspecific T wave abnormality no longer evident in Anterior leads Referred By: Tony Luo Electronically Signed By:Wilber Espinoza
[2022-02-09 03:23] VITALS: BP 122/66; PULSE 72; RESP 18; TEMP 36.4; O2SAT 96
[2022-02-09 06:58] LABS: Anion Gap 12 (12-20); Blood Urea Nitrogen 17 mg/dL (9-16); Calcium 8.9 mg/dL (8.4-10.2); Carbon Dioxide 26 mmol/L (22-29); Chloride 106 mmol/L (96-108); Creatinine Clr Calc Pharmacy 53.5; Estimated Glomerular Filt Rate > 60; Glucose Random 105 mg/dL (60-115); Sodium 140 mmol/L (135-145)
[2022-02-09 07:17] VITALS: BP 138/74; PULSE 66; RESP 18; TEMP 36.4; O2SAT 96
--- NOTE | 2022-02-09 08:19 | PC.NURSE ---
EKG COMPLETED BY THIS RN.
[2022-02-09] MEDS: Dronedarone HCl 400 MG TABLET PO (08:27)
[2022-02-09] MEDS: amLODIPine Besylate 5 MG TABLET PO (08:27)
[2022-02-09] MEDS: Apixaban 5 MG TABLET PO (08:27)
[2022-02-09] MEDS: Atorvastatin Calcium 40 MG TABLET PO (08:27)
[2022-02-09] MEDS: Aspirin Enteric Coated 81 MG TABLET.DR PO (08:27)
[2022-02-09] MEDS: 0.9 % Sodium Chloride Flush 3 ML SYRINGE IVFLUSH (08:28)
[2022-02-09] MEDS: Metoprolol Tartrate 25 MG TABLET PO (08:28)
--- NOTE | 2022-02-09 10:30 | HO.POSTANES ---
Post Anesthesia Evaluation Post Anesthesia Evaluation Vital Signs: Vital Signs Temp Pulse Resp BP Pulse Ox 02/09/22 07:17 97.5 F 66 18 138/74 96 02/09/22 03:23 97.6 F 72 18 122/66 96 02/08/22 23:51 98.4 F 70 18 97/61 98 Anesthesia: Monitored Mental Status: Awake Pain Control: Satisfactory Nausea/Vomiting: None Hydration: Adequate Anesthesia-Related Issues: No Anes. Related Issues
[2022-02-09 11:07] VITALS: BP 106/58; PULSE 55; RESP 17; TEMP 37.2; O2SAT 99
--- NOTE | 2022-02-09 11:19 | PM.PNCARD ---
Subjective Subjective Date of Service: 02/09/22 Principal diagnosis: Atrial fibrillation Interval history: Patient underwent SUKUMAR guided cardioversion yesterday. Doing very well. Started on Multaq therapy to maintain rhythm. Tolerating that well. Ambulating and his symptoms have significantly improved. Review of Systems Review of Systems Yes all other systems are reviewed and are negative Physical Exam Vital Signs: Last Vital Signs Temp 98.9 F 02/09/22 11:07 Pulse 55 02/09/22 11:07 Resp 17 02/09/22 11:07 BP 106/58 L 02/09/22 11:07 Pulse Ox 99 02/09/22 11:07 BMI result Body Mass Index 24.7 Const General: cooperative, comfortable, no acute distress, alert and awake Nutritional Appearance: average body habitus Orientation/consciousness: patient oriented x3 Neck Neck: Yes trachea midline, Yes supple and Yes no JVD Resp Effort & Inspection: normal respiratory effort Auscultation: clear to auscultation bilaterally Cardio Jugular venous distension: no JVD Palpation: normal PMI Rate: regular rate Rhythm: regular rhythm Heart sounds: S1 normal heart sound present, S2 normal heart sound present, no click, no gallops and no murmurs GI Auscultation: normal bowel sounds Neuro General: patient oriented x3 and no focal motor deficits Extrem General: Yes no clubbing, cyanosis or edema Objective Labs and Meds Result diagrams: 02/08/22 06:08 02/09/22 06:25 Lab results: Laboratory Results - last 24 hr 02/08/22 02/09/22 12:15 06:25 Sodium 140 Potassium 4.0 Chloride 106 Carbon Dioxide 26 Anion Gap 12 BUN 17 H Creatinine 0.99 Estim Creat Clear Calc 53.5 Estimated GFR > 60 POC Glucose 92 Random Glucose 105 Calcium 8.9 Progress Note: A&P Assessment and plan (1) Paroxysmal atrial fibrillation: Status: Acute Assessment and Plan: Highly symptomatic paroxysmal atrial fibrillation elderly gentleman, status post SUKUMAR guided cardioversion. Doing extremely well with rhythm control and ambulating without any symptoms of chest pain or shortness of breath. Most likely cause for his symptoms appears to be atrial fibrillation and loss of AV synchrony. Continue rhythm control approach. Continue Multaq. Continue full oral anticoagulation with Eliquis. Follow up in the clinic after stress testing and Holter. Patient can be discharged home today. Fall Risk Details Current Medications: Current Medications Acetaminophen (Acetaminophen 325 Mg Tablet) 650 mg PO ONCE PRN PRN Reason: Pain, Mild (Pain Scale 1-3) Albuterol Sulfate (Albuterol Sulfate 90 Mcg 8 Gm Inhaler) 2 puff INHALE Q6H PRN PRN Reason: Shortness Of Breath Amlodipine Besylate (Amlodipine Besylate 5 Mg Tablet) 5 mg PO DAILY [facility]; Protocol Last Admin: 02/09/22 08:27 Dose: 5 mg Documented by: Apixaban (Apixaban 5 Mg Tablet) 5 mg PO BID [facility] Last Admin: 02/09/22 08:27 Dose: 5 mg Documented by: Aspirin (Aspirin Enteric Coated 81 Mg Tablet.) 81 mg PO DAILY [facility] Last Admin: 02/09/22 08:27 Dose: 81 mg Documented by: Atorvastatin Calcium (Atorvastatin Calcium 40 Mg Tablet) 40 mg PO DAILY [facility] Last Admin: 02/09/22 08:27 Dose: 40 mg Documented by: Dronedarone (Dronedarone Hcl 400 Mg Tablet) 400 mg PO BID [facility] Last Admin: 02/09/22 08:27 Dose: 400 mg Documented by: Metoprolol Tartrate (Metoprolol Tartrate 25 Mg Tablet) 25 mg PO BID [facility]; Protocol Last Admin: 02/09/22 08:28 Dose: 25 mg Documented by: Pharmacy Consult (Consult Rx Perform Med Rec) 1 each MISCELLANE ONCE PRN PRN Reason: Consult order Pharmacy Consult (Consult Rx Perform Med Rec) 1 each MISCELLANE ONCE PRN PRN Reason: Consult order Sodium Chloride (0.9 % Sodium Chloride Flush 3 Ml Syringe) 3 ml IVFLUSH QSHIFT [facility] Last Admin: 02/09/22 08:28 Dose: 3 ml Documented by: Time Spent With Patient Time: Total time spent is greater than 50% in coordination of care (as documented) at patient's floor/unit and/or counseling patient: Progress Note: Quality Stroke Does the patient have a stroke diagnosis?: No Procedures Date of Service Date of Service: 02/09/22
--- NOTE | 2022-02-09 11:40 | PM.DS ---
DS: Providers Provider Date of Service: 02/09/22 Date of admission: 02/07/22 18:46 Primary care physician: Layne Kimball MD Consults: 02/07/22 18:50 Consult to Cardiology Routine Consulting Provider: Marco Pinon Reason for consultation: chest pain , afib Has provider been notified: No DS: Diagnosis Discharge Diagnosis (1) Paroxysmal atrial fibrillation: Status: Acute DS: Summary Hospital Course Hospital Course: 86y/o M who CAME WITH AFIB.? The patient states that last week he went for a checkup with his PCP Dr. Kimball.? He states that Dr. Kimball did not like the sound of his heart got an EKG on him and also got blood work.? The blood work revealed an elevated potassium he states he took a medicine for 3 days to low risk potassium.? He was also referred to his home theater expert for atrial fibrillationand went to cardiology today where? he was found to be in atrial fibrillation with a rapid ventricular response.? The patient was symptomatic and was referred to the emergency department for evaluation.? The patient states that he has been feeling short of breath for approximately 1 week.? He also states he is having pressure on his chest.? He states that over the past 2 days the chest pressure was constant, he also had pain that radiated to his left arm.? The chest pressure is 4/10.? He was feeling dizzy and lightheaded.? intial chest pressure it is 4/10 which is resolved, he said when he had chest pressure he has also had some dizziness and short of breath but all the symptoms are resolved currently. He said the chest pressure resolved with resting phone last week . The patient states that he does not have a history of atrial fibrillation and that this is a new diagnosis for him.? He does have a history coronary artery disease and has had 2 stents in the past.? He also has a history of diastolic dysfunction Hospital course: Patient came to the hospital afib with rvr ( found to have afib recently as per patient): Started on heart rate medication and seen by Cardiology - required cardioversion-afterwards patient converted to sinus rhythm and started on rate control medication Multaq in addition to metoprolol(dose adjusted to 25 mg by mouth twice daily). Patient also had chest tightness probably related to above. Further management outpatient with Cardiology. Cardiology may arrange their own appointment. Above management discussed with the patient in detail length he understand and in agreement with the above plan, time spent 50 minutes and 50% time spent on counseling. Significant findings: As above. Procedures performed: None. Treatment and response: As above. Complications: None. Time Spent with Patient Time attestation: Total time spent providing and/or coordinating discharge services: Discharge coordination time: Greater than 30 minutes Quality: Safe Use of Opioids Does Pt have an Active Cancer Diagnosis on the Problem List?: No Quality: Stroke Does the patient have a stroke diagnosis?: No Physical Exam Vital Signs: Vital Signs: Last Vital Signs Temp 98.9 F 02/09/22 11:07 Pulse 55 02/09/22 11:07 Resp 17 02/09/22 11:07 BP 106/58 L 02/09/22 11:07 Pulse Ox 99 02/09/22 11:07 BMI result Body Mass Index 24.7 Appearance: Alert.? Oriented X3.? not in distress.? cvs:irregular rythem, [id number] . res: clear to auscultation ,no rhonchii or wheezing abd: no rebound or guarding ,nt, bs present. ext pulses present , no cyanosis . neuro: axo3 , nonfocal. DS: Data Data Completed and Pending Labs on day of discharge: Laboratory Results - last 24 hr 02/08/22 02/09/22 12:15 06:25 Sodium 140 Potassium 4.0 Chloride 106 Carbon Dioxide 26 Anion Gap 12 BUN 17 H Creatinine 0.99 Estim Creat Clear Calc 53.5 Estimated GFR > 60 POC Glucose 92 Random Glucose 105 Calcium 8.9 Additional Comments Additional comments: XR/XR chest 1V IMPRESSION: No acute cardiopulmonary process. Discharge Plan Discharge Patient Disposition: Home, Self-Care Discharge Diagnosis: afib with rvr , chest tightness Referrals: Po,Layne Fisher MD [Primary Care Provider] - 1 Week Discharge Medications: New Multaq 400 mg tablet 400 mg PO BID Qty: 60 0RF Rx Instructions: must administer with a meal/food Continued aspirin [Adult Low Dose Aspirin] 81 mg tablet,delayed release (DR/EC) 81 mg PO DAILY 0RF albuterol sulfate [ProAir HFA] 90 mcg/actuation HFA aerosol inhaler 2 puff inhalation Q6H PRN (Reason: Shortness Of Breath) 0RF atorvastatin 40 mg tablet 40 mg PO DAILY Qty: 90 3RF amlodipine 5 mg tablet 5 mg PO DAILY Qty: 90 3RF Eliquis 5 mg tablet 5 mg PO BID Qty: 60 0RF Changed metoprolol tartrate 50 mg tablet 25 mg PO BID 90 Days Qty: 180 3RF Diet: advance to usual diet Activity on Discharge: As tolerated Stand Alone Forms: Patient Portal Discharge page Care Plan Goals: Patient came to the hospital because of irregular rhythm: Started on heart rate medication and seen by Cardiology - required cardioversion-afterwards patient converted to sinus rhythm and started on rate control medication Multaq in addition to metoprolol(dose adjusted to 25 mg by mouth twice daily). Patient also had chest tightness probably related to above. Further management outpatient with Cardiology. Health Concerns: As above. Plan of Treatment: As above. Assessment: As above.
[2022-02-09 11:47] VITALS: O2SAT 99
--- NOTE | 2022-02-09 12:42 | MHC.CM.PN ---
TREVON 02/07/22 Male 86 DX AFIB Chest pain He is discharged to home today. His will provide transportation to home.
--- NOTE | 2022-02-09 13:07 | PC.NURSE ---
IV AND TELEPACK REMOVED BY THIS RN. EDUCATION ON NEW MEDICATIONS AND DISCHARGE PAPERWORK PROVIDED TO PATIENT AND HIS BY THIS RN. RAT BREEDER TO BRING PATIENT VIA WHEELCHAIR TO MAIN ENTRANCE ONCE PATIENT IS DRESSED.
== END 2022-02-09 13:10 | disposition home or self-care (01) ==
LOC: HO.ED 18:22 → HO.EDOVER 18:54 → HO.IMC 02-08 15:20
PROVIDERS: Internal Medicine Cardiovascular Disease; Admitting Provider Internal Medicine; Emergency Provider Emergency Medicine Emergency Medical Services; PCP Internal Medicine; Visit Provider Internal Medicine
PROC: (CPT 93312; principal; 2022-02-08 13:30)
PROC: (CPT 93312; 2022-02-08 13:30)
DX: I48.0 Paroxysmal atrial fibrillation (principal); I48.92 Unspecified atrial flutter; I25.10 Atherosclerotic heart disease of native coronary artery without angina pectoris; I11.0 Hypertensive heart disease with heart failure; I50.30 Unspecified diastolic (congestive) heart failure; I27.22 Pulmonary hypertension due to left heart disease; I49.3 Ventricular premature depolarization; R94.31 Abnormal electrocardiogram [ECG] [EKG]; E11.65 Type 2 diabetes mellitus with hyperglycemia; E11.42 Type 2 diabetes mellitus with diabetic polyneuropathy; E87.5 Hyperkalemia; E78.5 Hyperlipidemia, unspecified; E78.00 Pure hypercholesterolemia, unspecified; E55.9 Vitamin D deficiency, unspecified; D50.9 Iron deficiency anemia, unspecified; Z87.891 Personal history of nicotine dependence; Z20.822 Contact with and (suspected) exposure to COVID-19; Z95.5 Presence of coronary angioplasty implant and graft; Z88.8 Allergy status to other drugs, medicaments and biological substances; Z79.82 Long term (current) use of aspirin; Z79.899 Other long term (current) drug therapy
CPT/HCPCS: 93312; 36415; 71045; 80048; 80053; 82947; 83690; 84484; 85025; 87502; 87635; 92960; 93005; 96374; 99219; 99285

== ENCOUNTER 2022-02-11 13:19 | Emergency (ER) | payer MEDICARE, SELFPAY ==
--- NOTE | ~2022-02-11 | XR_ITS ---
EXAMINATION: XR CHEST CLINICAL INFORMATION: Difficulty breathing COMPARISON: Previous chest x-ray most recent 02/07/2022 TECHNIQUE: Frontal view of the chest was obtained. FINDINGS: No significant abnormality is noted involving the heart, lungs, mediastinum, bony thorax or soft tissues. XR/XR chest 1V IMPRESSION: Unremarkable examination.
--- NOTE | 2022-02-11 13:25 | ECG_ITS ---
Test Reason : SOB Blood Pressure : / mmHG Vent. Rate : 089 BPM Atrial Rate : 089 BPM P-R Int : 152 ms QRS Dur : 096 ms QT Int : 396 ms P-R-T Axes : 082 069 113 degrees QTc Int : 481 ms Sinus rhythm with Premature supraventricular complexes Nonspecific ST and T wave abnormality Abnormal ECG When compared with ECG of 09-FEB-2022 08:11, Nonspecific T wave abnormality, worse in Lateral leads Referred By: Generic ED Physician Electronically Signed By:Wilber Espinoza
[2022-02-11 13:27] VITALS: BP 145/77; PULSE 87; RESP 16; TEMP 35.8; O2SAT 95; BMI 24.7
[2022-02-11 13:55] LABS: MANUAL DIFF FLAG NO
[2022-02-11 13:57] LABS: Basophils Percent Auto 0.2 % (0-2); Eosinophils Absolute Auto 0.1 X10*3/uL (0.0-0.4); Eosinophils Percent Auto 0.7 % (0-4); Hematocrit 36.6 % (42.0-52.0); Hemoglobin 11.6 g/dl (14.0-18.0); Imm Gran Abs Auto 0.03 X10*3/uL (0.00-0.03); Imm Gran Pct Auto 0.3 % (0.0-0.4); Lymphocytes Absolute Auto 1.2 X10*3/uL (1.2-4.9); Lymphocytes Percent Auto 12.9 % (20-40); Mean Corpuscular HGB Conc 31.7 g/dl (31.0-36.0); Mean Corpuscular Hemoglobin 27.4 pg (27.0-33.0); Mean Corpuscular Volume 86.5 fL (80.0-98.0); Mean Platelet Volume 10.8 fL (9.4-12.4); Monocytes Absolute Auto 1.5 X10*3/uL (0.1-1.2); Monocytes Percent Auto 15.5 % (2-11); Neutrophils Absolute Auto 6.8 x10*3/uL (2.0-8.3); Neutrophils Percent Auto 70.4 % (45-73); Platelet Count 197 X10*3/uL (160-400); Red Blood Count 4.23 X10*6/uL (4.60-5.80); Red Cell Distribution Width 13.7 % (11.0-16.0); White Blood Count 9.6 X10*3/uL (4.8-10.8)
--- NOTE | 2022-02-11 14:00 | ED.SOB ---
HPI - SOB/Dyspnea General Chief Complaint: Dyspnea Stated Complaint: diff breathing Time Seen by Provider: 02/11/22 13:40 Source: patient Mode of arrival: wheelchair Limitations: no limitations History of Present Illness HPI Narrative: Patient comes to the emergency room complaining shortness of breath since yesterday. Patient states that yesterday he went to sleep, he usually needs 2 pillows, but he could not tolerate lying flat. Patient had to sleep in the recliner sitting up. Patient states that the shortness of breath has gradually been getting worse, now has gurgling noises every time he breathes. Patient denies chest pain. Patient was discharged on 02/09/2022 for AFib with RVR. Patient states that to his knowledge she has not had any episodes of RVR since he was discharged. Related Data Home Medications Medication Instructions Recorded Confirmed albuterol sulfate 90 mcg/actuation 2 puff INHALATION Q6H PRN 10/06/20 02/07/22 aerosol inhaler (ProAir HFA) aspirin 81 mg tablet,delayed 81 mg PO DAILY 10/06/20 02/07/22 release (Adult Low Dose Aspirin) Previous Rx's Medication Instructions Recorded amlodipine 5 mg tablet 5 mg PO DAILY #90 tab 10/16/21 atorvastatin 40 mg tablet 40 mg PO DAILY #90 tab 10/16/21 apixaban 5 mg tablet (Eliquis) 5 mg PO BID #60 tab 01/30/22 dronedarone 400 mg tablet (Multaq) 400 mg PO BID #60 tab 02/09/22 metoprolol tartrate 50 mg tablet 25 mg PO BID 90 Days #180 tab 02/09/22 furosemide 40 mg tablet (Lasix) 40 mg PO DAILY #4 tab 02/11/22 Allergies Allergy/AdvReac Type Severity Reaction Status Date / Time lisinopril Allergy Unknown hyperkalemi Verified 02/07/22 14:42 a Review of Systems Review of Systems: Constitutional : No Weight loss, No Fever, No Chills, No Night Sweats, No Fatigue, No Malaise ENT/Mouth : No Hearing loss, No Ear Pain, No Nasal Congestion, No Sinus Pain, No Hoarseness, No sore throat, No Rhinorrhea, No Swallowing Difficulty Eyes: No Eye Pain, No Swelling, No Redness, No Foreign Body, No Discharge, No Vision Changes Cardiovascular : No Chest Pain, complaining of orthopnea and shortness of breath with exertion Respiratory : No Cough, No Wheezing, No Smoke Exposure Gastrointestinal : No Nausea, No Vomiting, No Diarrhea, No Constipation, No abdominal Pain, No Hematochezia, No Melena Genitourinary : no irregular bleeding, No Dysuria, No Urinary Frequency, No Hematuria, No Urinary Incontinence, No Urgency, No Flank Pain, No Urinary Flow Changes, No Hesitancy Musculoskeletal : No joint pain, No Myalgias, No Joint Swelling Skin : No Skin Lesions, No rash Neuro : No Weakness, No Numbness, No Paresthesias, No Loss of Consciousness, No Dizziness, No Headache Psych : No Anxiety/Panic, No Depression, No SI/HI/AH/VH, No Social Issues, Heme/Lymph: No Bruising, No Bleeding,No Lymphadenopathy Endocrine : No Polyuria, No Polydipsia, No Temperature Intolerance [facility] Past Medical History Medical History Asthma Atherosclerotic cardiovascular disease Atrial fibrillation with rapid ventricular response Coronary artery disease Diabetic neuropathy Diastolic dysfunction Essential hypertension Hypercholesterolemia Iron deficiency anemia Left renal stone Pulmonary hypertension Type 2 diabetes mellitus with hyperglycemia Vitamin D deficiency Surgical History History of appendectomy History of inguinal hernia repair History of lymph node excision Family History Family History Father CVD (cardiovascular disease) Myocardial infarction Mother Hypertension Heart disease Diabetes CVD (cardiovascular disease) Sister No problems noted. Sister Diabetes Social History Social History Household Members: Family Housing: House Do you presently have visiting nurse or other home services: No Alcohol intake: never Patient Tobacco Use Status: Former Tobacco user Tobacco use type: Cigarette e-Cigarette/Vaping Use: Never Used Second Hand Smoke Exposure: No Advance Directives: No Advance Directives Information Provided: Yes service: No Current occupational status: retired Cognitive needs: No Hearing needs: Yes Vision needs: Yes Physical Exam Vital Signs: Vital Signs: Last Vital Signs Temp 98.9 F 02/11/22 14:38 Pulse 80 02/11/22 16:27 Resp 29 H 02/11/22 16:27 BP 128/65 02/11/22 16:27 Pulse Ox 93 02/11/22 16:27 Oxygen Flow Rate 2 02/11/22 13:27 BMI result Body Mass Index 24.7 Const: Other: Appearance: Alert. Oriented X3. No acute distress. Eyes: Pupils equal, round and reactive to light. ENT: Pharynx normal. Neck: Normal inspection. Neck supple. No lymph nodes noted. No crepitus CVS: Normal heart rate and rhythm. Pulses normal. Normal S1 and S2 Respiratory: Patient has loud crackles and rales bilaterally, no wheezing. Abdomen: Soft and nontender. No rigidity. No distention. Skin: Skin warm and dry. Normal skin color. Normal skin turgor. Extremities: +1 pitting edema No Lacerations. No Rash Neuro: Oriented X 3. No motor deficit. No sensory deficit. Moving all extremities. No slurred speech. CN 2 through 12 grossly intact Psych: calm, cooperative, normal affect Course Course Course Narrative: At this time, rate is controlled. Patient's oxygen saturation drops to 88 % on room air with talking. Patient on 2 L of oxygen saturating 95%. Patient likely has a CHF exacerbation Patient's blood pressure 145/77, heart rate 87, patient is being giving 40 mg IV of Lasix, labs and imaging pending After further mg of IV Lasix, patient feeling overall much better, patient has no shortness of breath, no gurgling sounds. Patient's oxygen saturation is 95% on room air, 93% with walking, does not feel short of breath with exertion. Patient's troponin 5.9, BNP 197, D-dimer negative, EKG shows no acute abnormalities. As mentioned above, patient is feeling well from a day to be discharged home MDM - SOB/Dyspnea Lab Data Result diagrams: 02/11/22 13:47 02/11/22 13:47 Labs: Lab Results 02/11/22 02/11/22 02/11/22 Range/Units 13:46 13:46 13:46 WBC (4.8-10.8) X10*3/uL RBC (4.60-5.80) X10*6/uL Hgb (14.0-18.0) g/dl Hct (42.0-52.0) % MCV (80.0-98.0) fL MCH (27.0-33.0) pg MCHC (31.0-36.0) g/dl RDW (11.0-16.0) % Plt Count (160-400) X10*3/uL MPV (9.4-12.4) fL Immature Gran % (Auto) (0.0-0.4) % Neut % (Auto) (45-73) % Lymph % (Auto) (20-40) % [place] % (Auto) (2-11) % Eos % (Auto) (0-4) % Baso % (Auto) (0-2) % Lymph # (Auto) (1.2-4.9) X10*3/uL [place] # (Auto) (0.1-1.2) X10*3/uL Eos # (Auto) (0.0-0.4) X10*3/uL Baso # (Auto) (0.0-0.2) X10*3/uL Abs Immat Gran (auto) (0.00-0.03) X10*3/uL Absolute Neuts (auto) (2.0-8.3) x10*3/uL Absolute Nucleated RBC (0.0-0.012) X10*3/uL Nucleated RBC % (auto) (0.0-0.2) /100WBC PT 23.0 H (9.9-13.0) SEC INR 2.0 H (0.9-1.1) APTT 48.6 H (24.1-38.0) SEC D-Dimer High Sensitivty < 150 NG/ML Sodium (135-145) mmol/L Potassium (3.3-5.1) mmol/L Chloride (96-108) mmol/L Carbon Dioxide (22-29) mmol/L Anion Gap (12-20) BUN (9-16) mg/dL Creatinine (0.5-1.4) mg/dL Estim Creat Clear Calc Estimated GFR Random Glucose (60-115) mg/dL Lactic Acid 1.4 (0.5-2.0) mmol/L Calcium (8.4-10.2) mg/dL Magnesium (1.6-2.6) mg/dL Total Bilirubin (0.0-1.0) mg/dL Direct Bilirubin (0.0-0.5) mg/dL AST (5-37) U/L ALT (0-40) U/L Alkaline Phosphatase (39-117) U/L Troponin I High Sens (<3.5-35.0) ng/L B-Natriuretic Peptide (<100) pg/mL Total Protein (6.5-8.0) g/dL Albumin (3.5-5.0) g/dL Urine Color Urine Appearance Urine pH (5.0-8.0) Ur Specific [place] (1.005-1.025) Urine Protein (NEG-TRACE) MG/DL Urine Glucose (UA) (NEG) MG/DL Urine Ketones (NEG) MG/DL Urine Blood (NEG) Urine Nitrite (NEG) Ur Leukocyte Esterase (NEG) COVID-19 (VIVEK) Negative (Negative) COVID-19 Clin Com See Note 02/11/22 02/11/22 02/11/22 Range/Units 13:47 13:47 13:47 WBC 9.6 (4.8-10.8) X10*3/uL RBC 4.23 L (4.60-5.80) X10*6/uL Hgb 11.6 L (14.0-18.0) g/dl Hct 36.6 L (42.0-52.0) % MCV 86.5 (80.0-98.0) fL MCH 27.4 (27.0-33.0) pg MCHC 31.7 (31.0-36.0) g/dl RDW 13.7 (11.0-16.0) % Plt Count 197 (160-400) X10*3/uL MPV 10.8 (9.4-12.4) fL Immature Gran % (Auto) 0.3 (0.0-0.4) % Neut % (Auto) 70.4 (45-73) % Lymph % (Auto) 12.9 L (20-40) % [place] % (Auto) 15.5 H (2-11) % Eos % (Auto) 0.7 (0-4) % Baso % (Auto) 0.2 (0-2) % Lymph # (Auto) 1.2 (1.2-4.9) X10*3/uL [place] # (Auto) 1.5 H (0.1-1.2) X10*3/uL Eos # (Auto) 0.1 (0.0-0.4) X10*3/uL Baso # (Auto) 0.0 (0.0-0.2) X10*3/uL Abs Immat Gran (auto) 0.03 (0.00-0.03) X10*3/uL Absolute Neuts (auto) 6.8 (2.0-8.3) x10*3/uL Absolute Nucleated RBC 0.000 (0.0-0.012) X10*3/uL Nucleated RBC % (auto) 0.0 (0.0-0.2) /100WBC PT (9.9-13.0) SEC INR (0.9-1.1) APTT (24.1-38.0) SEC D-Dimer High Sensitivty NG/ML Sodium 138 (135-145) mmol/L Potassium 3.7 (3.3-5.1) mmol/L Chloride 104 (96-108) mmol/L Carbon Dioxide 25 (22-29) mmol/L Anion Gap 13 (12-20) BUN 16 (9-16) mg/dL Creatinine 0.92 (0.5-1.4) mg/dL Estim Creat Clear Calc 57.6 Estimated GFR > 60 Random Glucose 120 H (60-115) mg/dL Lactic Acid (0.5-2.0) mmol/L Calcium 8.9 (8.4-10.2) mg/dL Magnesium (1.6-2.6) mg/dL Total Bilirubin (0.0-1.0) mg/dL Direct Bilirubin (0.0-0.5) mg/dL AST (5-37) U/L ALT (0-40) U/L Alkaline Phosphatase (39-117) U/L Troponin I High Sens 5.9 D (<3.5-35.0) ng/L B-Natriuretic Peptide 197 H (<100) pg/mL Total Protein (6.5-8.0) g/dL Albumin (3.5-5.0) g/dL Urine Color Urine Appearance Urine pH (5.0-8.0) Ur Specific [place] (1.005-1.025) Urine Protein (NEG-TRACE) MG/DL Urine Glucose (UA) (NEG) MG/DL Urine Ketones (NEG) MG/DL Urine Blood (NEG) Urine Nitrite (NEG) Ur Leukocyte Esterase (NEG) COVID-19 (VIVEK) (Negative) COVID-19 Clin Com 02/11/22 02/11/22 Range/Units 14:12 15:49 WBC (4.8-10.8) X10*3/uL RBC (4.60-5.80) X10*6/uL Hgb (14.0-18.0) g/dl Hct (42.0-52.0) % MCV (80.0-98.0) fL MCH (27.0-33.0) pg MCHC (31.0-36.0) g/dl RDW (11.0-16.0) % Plt Count (160-400) X10*3/uL MPV (9.4-12.4) fL Immature Gran % (Auto) (0.0-0.4) % Neut % (Auto) (45-73) % Lymph % (Auto) (20-40) % [place] % (Auto) (2-11) % Eos % (Auto) (0-4) % Baso % (Auto) (0-2) % Lymph # (Auto) (1.2-4.9) X10*3/uL [place] # (Auto) (0.1-1.2) X10*3/uL Eos # (Auto) (0.0-0.4) X10*3/uL Baso # (Auto) (0.0-0.2) X10*3/uL Abs Immat Gran (auto) (0.00-0.03) X10*3/uL Absolute Neuts (auto) (2.0-8.3) x10*3/uL Absolute Nucleated RBC (0.0-0.012) X10*3/uL Nucleated RBC % (auto) (0.0-0.2) /100WBC PT (9.9-13.0) SEC INR (0.9-1.1) APTT (24.1-38.0) SEC D-Dimer High Sensitivty NG/ML Sodium (135-145) mmol/L Potassium (3.3-5.1) mmol/L Chloride (96-108) mmol/L Carbon Dioxide (22-29) mmol/L Anion Gap (12-20) BUN (9-16) mg/dL Creatinine (0.5-1.4) mg/dL Estim Creat Clear Calc Estimated GFR Random Glucose (60-115) mg/dL Lactic Acid (0.5-2.0) mmol/L Calcium (8.4-10.2) mg/dL Magnesium 1.7 (1.6-2.6) mg/dL Total Bilirubin 2.6 H (0.0-1.0) mg/dL Direct Bilirubin 0.4 (0.0-0.5) mg/dL AST 20 (5-37) U/L ALT 17 (0-40) U/L Alkaline Phosphatase 105 (39-117) U/L Troponin I High Sens (<3.5-35.0) ng/L B-Natriuretic Peptide (<100) pg/mL Total Protein 6.6 (6.5-8.0) g/dL Albumin 4.0 (3.5-5.0) g/dL Urine Color STRAW Urine Appearance CLEAR Urine pH 5.5 (5.0-8.0) Ur Specific [place] <= 1.005 (1.005-1.025) Urine Protein NEG (NEG-TRACE) MG/DL Urine Glucose (UA) NEG (NEG) MG/DL Urine Ketones NEG (NEG) MG/DL Urine Blood NEG (NEG) Urine Nitrite NEG (NEG) Ur Leukocyte Esterase NEG (NEG) COVID-19 (VIVEK) (Negative) COVID-19 Clin Com Discharge Plan Discharge Clinical Impression: Acute dyspnea Patient Disposition: Home, Self-Care Instructions: Dyspnea (ED) Additional Instructions: Please follow-up with your primary care physician tomorrow. If you have any worsening or new symptoms, please return to the emergency room or call 911 Prescriptions: New furosemide [Lasix] 40 mg tablet 40 mg PO DAILY Qty: 4 0RF No Action Multaq 400 mg tablet 400 mg PO BID Qty: 60 0RF Rx Instructions: must administer with a meal/food metoprolol tartrate 50 mg tablet 25 mg PO BID 90 Days Qty: 180 3RF aspirin [Adult Low Dose Aspirin] 81 mg tablet,delayed release (DR/EC) 81 mg PO DAILY 0RF albuterol sulfate [ProAir HFA] 90 mcg/actuation HFA aerosol inhaler 2 puff inhalation Q6H PRN (Reason: Shortness Of Breath) 0RF atorvastatin 40 mg tablet 40 mg PO DAILY Qty: 90 3RF amlodipine 5 mg tablet 5 mg PO DAILY Qty: 90 3RF Eliquis 5 mg tablet 5 mg PO BID Qty: 60 0RF
[2022-02-11 14:13] LABS: Lactic Acid 1.4 mmol/L (0.5-2.0)
[2022-02-11 14:16] LABS: Anion Gap 13 (12-20); Blood Urea Nitrogen 16 mg/dL (9-16); Calcium 8.9 mg/dL (8.4-10.2); Carbon Dioxide 25 mmol/L (22-29); Chloride 104 mmol/L (96-108); Creatinine Clr Calc Pharmacy 57.6; Estimated Glomerular Filt Rate > 60; Glucose Random 120 mg/dL (60-115); Potassium 3.7 mmol/L (3.3-5.1); Sodium 138 mmol/L (135-145)
[2022-02-11 14:17] LABS: Partial Thromboplastin Time 48.6 SEC (24.1-38.0)
[2022-02-11 14:22] LABS: COVID-19 Test Negative (Negative); IDNOW Serial# 16C4AD1C
[2022-02-11 14:24] LABS: B Type Natriuretic Peptide 197 pg/mL (<100); Troponin-I High Sensitivity 5.9 ng/L (<3.5-35.0)
[2022-02-11] MEDS: Furosemide 40 MG/4 ML VIAL IVPUSH (14:36)
[2022-02-11 14:38] VITALS: BP 131/62; PULSE 82; RESP 30; TEMP 37.2; O2SAT 93
[2022-02-11 14:55] LABS: Alanine Aminotransferase 17 U/L (0-40); Alkaline Phosphatase 105 U/L (39-117); Aspartate Amino Transferase 20 U/L (5-37); Bilirubin Direct 0.4 mg/dL (0.0-0.5); Bilirubin Total 2.6 mg/dL (0.0-1.0); Magnesium 1.7 mg/dL (1.6-2.6); Total Protein 6.6 g/dL (6.5-8.0)
[2022-02-11 15:29] LABS: D Dimer High Sensitivity < 150 NG/ML
[2022-02-11 15:57] LABS: Appearance Urine CLEAR; Color Urine STRAW; Glucose Urine UA NEG (NEG); Leukocyte Esterase Urine NEG (NEG); Nitrite Urine NEG (NEG); PH 5.5 (5.0-8.0); Specific Gravity - Urine <= 1.005 (1.005-1.025); Urine Blood NEG (NEG); Urine Ketones NEG (NEG); Urine Protein NEG (NEG-TRACE)
[2022-02-11 16:27] VITALS: BP 128/65; PULSE 80; RESP 29; O2SAT 93
== END 2022-02-11 17:12 | disposition home or self-care (01) ==
PROVIDERS: Emergency Provider Emergency Medicine; PCP Internal Medicine
DX: R06.00 Dyspnea, unspecified (principal); Z20.822 Contact with and (suspected) exposure to COVID-19; R06.02 Shortness of breath; I10 Essential (primary) hypertension; E11.9 Type 2 diabetes mellitus without complications; E78.5 Hyperlipidemia, unspecified; I48.91 Unspecified atrial fibrillation; Z79.82 Long term (current) use of aspirin; Z79.02 Long term (current) use of antithrombotics/antiplatelets; Z79.01 Long term (current) use of anticoagulants; Z79.899 Other long term (current) drug therapy; Z87.891 Personal history of nicotine dependence
CPT/HCPCS: 36415; 71045; 80048; 80076; 81003; 83605; 83735; 83880; 84484; 85025; 85379; 85610; 85730; 87040; 87635; 93005; 96374; 99284; J1940

== ENCOUNTER → 2022-03-12 07:22 | Outpatient (REF) | payer MEDICARE, SELFPAY ==
--- NOTE | 2022-03-12 07:25 | CA_ITS ---
Transthoracic Echocardiogram Patient (Last, First, Middle): Juan Giles F Gender: Male Date of : 1935 Age: 86 Procedure Date: 03/12/2022 Procedure Type: Transthoracic Echocardiogram Location: OP Height: 175.26 cm Weight: 74.84 kg BSA: 1.90 m2 Heart Rate: bpm BP: 118 / 60 mmHg Parts Cataloger: [email or web address] Referring MD: Layne Kimball MD Produce Clerk: Marco Pinon MD Symptoms: I48.91 - Unspecified atrial fibrillation Study Quality: Adequate ECG Rhythm: Sinus Conclusions: - 1. Low normal LV ejection fraction of 50-55% with grade 2 diastolic dysfunction 2. Normal cardiac valvular Doppler 3. Mildly elevated right ventricular systolic pressure 4. No gross pericardial effusion Findings Left Ventricle Normal left ventricular cavity size. There is normal left ventricular wall thickness. The left ventricular systolic function is low normal. The visually estimated ejection fraction is between 50-55%. Spectral Doppler is indicative of a pseudonormal filling pattern. E/E prime ratio is >15, consistent with elevated filling pressures. Evidence suggests grade II (moderate) diastolic dysfunction. Peak GLS is - 13.4%, which is reduced Right Ventricle Normal right ventricular cavity size and systolic function. Atria The left atrium is likely dilated. There is lipomatous hypertrophy of the interatrial septum. There is no evidence of interatrial shunt. The right atrium is normal in size. Aortic Valve The aortic valve structure and function is likely normal. There is no aortic valve stenosis. There is no aortic valve regurgitation. Mitral Valve There is mild anterior and posterior mitral leaflet thickening. There is trace mitral valve regurgitation. There is no mitral valve stenosis. Pulmonic Valve The pulmonic valve was not well visualized. Tricuspid Valve Likely normal tricuspid valve structure and function. There is mild tricuspid valve regurgitation. Normal right atrial pressure. Mild pulmonary hypertension is present. Great Vessels All visible segments of the aorta are normal in size. The pulmonary artery was not well visualized. Venous The inferior vena cava is normal in size and collapses greater than 50% with inspiration. Pericardium/Pleural There is no evidence of pericardial effusion. Prior Study Comparison No significant change compared to prior study dated: 07/23/2021. Measurements 2D Linear Measurements IVSd: 0.76 0.6-0.9/0.6-1.0 cm LVIDd: 4.86 3.9-5.3/4.2-5.9 cm LVIDd Index: 2.56 2.4-3.2/2.2-3.1 cm/m2 LVIDs: 3.22 2.0-3.6 cm LVPWd: 0.69 0.7-1.1 cm LA Diam: 3.70 2.7-3.8/3.0-4.0 cm LAIDs Index: 1.95 1.5-2.3 cm/m2 LV Mass: 141.66 67-162/88-224 g LV Mass Index: 74.56 43-95/49-115 g/m2 LVOT Diam: 2.00 3.0+(-)1.3 cm 2D Systolic Function EF 4C: 49.30 >55% EF 2C: 52.60 >55% EF BiP: 50.80 >55% Mitral Valve MV Pk E: 1.07 MV PK A: 0.44 MV Decel Time: 172.00 E/A: 2.40 E'Lateral: 6.42 E'Medial: 5.87 E/E' Med: 18.20 E/E' Lat: 16.70 PHT: 50.00 MVA PHT: 4.40 Decel [place]: 6.21 Aortic Valve AoV Pk Binh: 1.46 AoV Mn Binh: 1.00 AoV VTI: 0.30 AoV Pk Grad: 9.00 Aov Mn Grad: 5.00 LYLE Cont.VTI: 2.09 LVOT LVOT Pk Binh: 1.00 LVOT Mn Binh: 0.65 LVOT VTI: 0.20 LVOT Pk Grad: 4.00 LVOT Mn Grad: 2.00 LVOT Diam: 2.00 LVOT Area: 3.14 Diastolic Function MV Pk E: 1.07 MV Pk A: 0.44 E/A: 2.40 E'Medial: 5.87 E/E' Med: 18.20 E' Laterial: 6.42 E/E' Lat: 16.70 Right Ventricle TAPSE (mm): 18.90 TVS' Binh: 12.60 Tricuspid Valve TR Pk Binh: 3.03 TR Pk Grad: 37.00 RA Press: 3.00 RVSP: 40.00 Great Vessels Aorta Sinus of Valsalva: 2.72 2.0-3.[address] [place]: 2.73 1.7-3.4 cm Ao Asc: 3.50 2.1-3.4 cm Pulmonary Veins Pulm Vein S/D 0.50 Pulmonary Valve PV Pk Binh: 0.96 Peak PV Grad: 4.00 Updated in Other Vendor System with Status of Final Marco Pinon MD electronically signed on 03/13/2022 12:57:05 PM with status of Final
== END ==
LOC: HO.CARD 07:22
PROVIDERS: PCP Internal Medicine; Visit Provider Internal Medicine
DX: I48.91 Unspecified atrial fibrillation (principal); I48.92 Unspecified atrial flutter
CPT/HCPCS: 93306; 93356

== ENCOUNTER 2022-04-15 11:08 | Outpatient (REF) | payer SELFPAY | END 2022-04-15 11:09 | disposition home or self-care (01) | LOC: HO.HAP 11:08 | PROVIDERS: Visit Provider Internal Medicine | DX: Z46.1 Encounter for fitting and adjustment of hearing aid (principal); H90.3 Sensorineural hearing loss, bilateral | CPT/HCPCS: V5267 ==

== ENCOUNTER → 2022-05-07 14:56 | Outpatient (BNVA) | payer OTHER, SELFPAY | PROVIDERS: PCP Internal Medicine; Visit Provider Internal Medicine | DX: I48.0 Paroxysmal atrial fibrillation (principal); I25.10 Atherosclerotic heart disease of native coronary artery without angina pectoris; I51.89 Other ill-defined heart diseases; I27.20 Pulmonary hypertension, unspecified; I10 Essential (primary) hypertension; J45.20 Mild intermittent asthma, uncomplicated | CPT/HCPCS: 93005 ==

== ENCOUNTER → 2022-05-08 08:42 | Outpatient (REF) | payer OTHER, SELFPAY ==
--- NOTE | ~2022-05-08 | NM_ITS ---
Lexiscan Myocardial perfusion study Indication: Shortness of breath, chest pressure, assess for ischemia Technique: The patient was brought in for a Lexiscan perfusion study on 05/08/2022 and was injected 0.4 mg of Lexiscan intravenously. Within a minute of this injection 25 mCi of sestamibi was given intravenously. Images were obtained using the SPECT gamma camera interlaced with the gating device. Images were obtained in supine position. Resting perfusion study was performed on 05/09/2022. Patient was administered 25 mCi of sestamibi intravenously at rest. Images were then obtained in supine position. Total DLP 78mGy-cm. Images were processed with the software and compared side to side in short axis, horizontal long axis and vertical long axis views. Findings: Raw acquisition was reviewed. The stress perfusion study showed no significant perfusion abnormality. Both uncorrected as well as CT attenuation corrected images were reviewed. The gated study shows normal LV systolic function with calculated LVEF of 56%. LV cavity is normal in size. The gated study shows normal wall thickening and contraction of segments. Resting study shows diminished tracer uptake in the distal part of inferior wall. Some improvement with CT attenuation correction. Gating at rest reveals normal wall motion with ejection fraction at 50%. The findings are consistent with no clear reversible or fixed perfusion defects. NM/NM leeanne perf SPECT rest & str Impression: 1. Myocardial perfusion imaging study shows no clear evidence of any ischemia or infarction. Likely normal perfusion. 2. Gated LVEF is 56% during stress and 50% during rest. 3. Transient ischemic dilatation not present. EKG component of the test reported separately.
--- NOTE | 2022-05-08 08:46 | CA_ITS ---
Acquisition Time: 2022-05-08 09:18:15 Total Exercise Time: 00:02:00 Test Indications: afib, cp, sob Medications: see chart Protocol: LEXISCAN Max HR: 081 BPM 60% of Pred: 134 BPM Max BP: 142/060 mmHG Max Work Load: 1.0 METS Pharmacological stress test with Lexiscan injection, while sitting and kicking his legs, with mild shortness of breath, no chest discomfort, with mild sob post injection, no chest discomfort, with isolated PACs and PVCs, with normotensive response to injection, with nondiagnostic EKG for ischemia. Prior to start of test, he took 2 puffs of his own Albuteral inhaler. In recovery he was given Aminophylline 75mg IVP to reverse Lexiscan. Nuclear images pending. Test reviewed with Dr Harley. Test originally ordered as Dobutamine nuclear stress test. This am pt took his metoprolol and multaq. His resting heart rate was in 50s. Decision made, along with Dr Harley, to change to Lexiscan. Referred By: Tayo Harley Overread By: SEAMUS DEWEY
--- NOTE | 2022-05-08 10:53 | HM_ITS ---
Conclusion: 1. Patient was monitored for total period of 3 days and 1 hour 2. Baseline was normal sinus rhythm with average heart of 63 beats per minute 3. No significant pauses or bradycardia 4. Three episode of nonsustained VT longest lasting 5 beat and fastest was 3 beats at 154 beats per minute 5. Multiple short runs of supraventricular tachycardia, longest lasting 17 beats 6. Total of 2269 PACs accounting is 0.83% of total beats accounting for occasional PACs 7. 1 patient reported event correlated with sinus rhythm MTDD
== END ==
LOC: HO.CARD 08:42
PROVIDERS: PCP Internal Medicine; Visit Provider Internal Medicine
DX: R07.9 Chest pain, unspecified (principal); I25.10 Atherosclerotic heart disease of native coronary artery without angina pectoris; I48.91 Unspecified atrial fibrillation
CPT/HCPCS: 78452; 93017; 93242; A9500; J0280; J1250; J2785

== ENCOUNTER → 2022-06-11 08:11 | Outpatient (REF) | payer MEDICARE, SELFPAY ==
--- NOTE | 2022-06-11 08:15 | CA_ITS ---
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 The calculated ejection fraction is 61% by biplane method. - Evidence suggests grade III (severe) diastolic dysfunction. - Moderate pulmonary hypertension is present. Findings Left Ventricle Normal left ventricular cavity size. There is normal left ventricular wall thickness. The left ventricular systolic function is normal. The calculated ejection fraction is 61% by biplane method. There is no evidence of regional wall motion abnormalities. E/E prime ratio is >15, consistent with elevated filling pressures. Evidence suggests grade III (severe) diastolic dysfunction. Right Ventricle Normal right ventricular cavity size. There is mildly decreased right ventricular systolic function. Atria The left atrium is normal in size. Tricuspid Valve The right ventricular systolic pressure is 51 mmHg. Moderate pulmonary hypertension is present. Venous The inferior vena cava is normal in size and collapses greater than 50% with inspiration. Prior Study Comparison Changes noted compared to prior study dated: 03/12/2022. Progression of diastolic dysfunction. Measurements 2D Linear Measurements IVSd: 0.74 0.6-0.9/0.6-1.0 cm LVIDd: 4.87 3.9-5.3/4.2-5.9 cm LVIDd Index: 2.56 2.4-3.2/2.2-3.1 cm/m2 LVIDs: 3.15 2.0-3.6 cm LVPWd: 0.67 0.7-1.1 cm LA Diam: 3.50 2.7-3.8/3.0-4.0 cm LAIDs Index: 1.84 1.5-2.3 cm/m2 LV Mass: 136.60 67-162/88-224 g LV Mass Index: 71.89 43-95/49-115 g/m2 LVOT Diam: 2.00 3.0+(-)1.3 cm 2D Systolic Function EF 4C: 60.00 >55% EF 2C: 61.80 >55% EF BiP: 60.60 >55% Mitral Valve MV Pk E: 1.12 MV PK A: 0.32 MV Decel Time: 139.00 E/A: 3.50 E'Lateral: 5.43 E'Medial: 4.26 E/E' Med: 26.30 E/E' Lat: 20.60 PHT: 41.00 MVA PHT: 5.37 Decel [place]: 8.07 LVOT LVOT Pk Binh: 0.81 LVOT Mn Binh: 0.54 LVOT VTI: 0.19 LVOT Pk Grad: 3.00 LVOT Mn Grad: 1.00 LVOT Diam: 2.00 LVOT Area: 3.14 Diastolic Function MV Pk E: 1.12 MV Pk A: 0.32 E/A: 3.50 E'Medial: 4.26 E/E' Med: 26.30 E' Laterial: 5.43 E/E' Lat: 20.60 Right Ventricle TAPSE (mm): 15.70 TVS' Binh: 9.20 Tricuspid Valve TR Pk Binh: 3.45 TR Pk Grad: 48.00 RA Press: 3.00 RVSP: 51.00 Great Vessels Aorta Sinus of Valsalva: 3.10 2.0-3.5 cm Ao Asc: 3.70 2.1-3.4 cm Updated in Other Vendor System with Status of Final Tayo Harley MD electronically signed on 06/11/2022 1:56:54 PM with status of Final
== END ==
LOC: HO.CARD 08:11
PROVIDERS: PCP Internal Medicine; Visit Provider Internal Medicine
DX: I25.10 Atherosclerotic heart disease of native coronary artery without angina pectoris (principal); I48.0 Paroxysmal atrial fibrillation; I51.89 Other ill-defined heart diseases; I27.20 Pulmonary hypertension, unspecified
CPT/HCPCS: 93308; 99212

== ENCOUNTER 2022-06-18 11:24 | Outpatient (REF) | payer SELFPAY | END 2022-06-18 11:25 | disposition home or self-care (01) | LOC: HO.HAP 11:24 | PROVIDERS: Visit Provider Internal Medicine | DX: Z46.1 Encounter for fitting and adjustment of hearing aid (principal); H90.3 Sensorineural hearing loss, bilateral | CPT/HCPCS: V5267 ==

== ENCOUNTER 2022-06-19 10:36 | Outpatient (REF) | payer SELFPAY ==
--- NOTE | 2022-06-19 13:07 | MHC.AU.HFU ---
Hearing Instrument Follow-Up- Binaural Date of Visit: 06/19/22 Right Ear: Geographic Information Systems Director: Phonak Model: Audeo Q50 Serial Number: [id number] Repair Warranty: 10/19/2017 Loss and Damage Warranty: 10/19/2017 Battery Size: 312 Type of Dome: Large Open Type of Wax Guard: CeruStop Date of Fittin08/05/2014 Left Ear: Geographic Information Systems Director: Phonak Model: Audeo Q50 Serial Number: [id number] Repair Warranty: 10/19/2017 Loss and Damage Warranty: 10/19/2017 Battery Size: 312 Type of Dome: Large Open Type of Wax Guard: CeruStop Date of Fittin08/05/2014 Follow-Up Summary: Patient dropped both hearing aids off for repair, reporting the right side is not working at all and the left side works sometimes. Wax was occluding both wax guards, and had gotten past the wax guards into the receivers. Wax was removed from receivers. Wax guards and domes replaced. Debris removed from microphones and battery compartments. The left side is amplifying clearly, with no intermittency noted. The right side is still not working. Tried a veneer stock grader on the right hearing aid- the start-up jingle can be heard but no sound is produced afterwards. Called patient to discuss options. That hearing aid model is not considered obsolete by [employer] and cannot be sent to [employer] for repair. Discussed that we could try sending it to [facility], which would be a minimum of $330. The other possibility would be if he was interested in new hearing aids. Patient reports that he thinks he's been getting along well with just the left hearing aid. He does not want to send the right hearing aid out or pursue a new right hearing aid at this time. 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 Recommendations:Will owe $10 for maintenance at pick-up. Diagnosis Code(s):Primary Diagnosis: H90.3 Bilateral Sensorineural Hearing Loss Signature:Provider: Monica Covington, [facility]
== END 2022-06-19 10:37 | disposition home or self-care (01) ==
LOC: HO.HAP 10:36
PROVIDERS: Visit Provider Internal Medicine
DX: Z13.89 Encounter for screening for other disorder (principal)

== ENCOUNTER 2022-06-20 10:00 | Outpatient (REF) | payer SELFPAY | END 2022-06-20 10:01 | disposition home or self-care (01) | LOC: HO.HAP 10:00 | PROVIDERS: Visit Provider Internal Medicine | DX: Z46.1 Encounter for fitting and adjustment of hearing aid (principal) | CPT/HCPCS: 99499 ==

== ENCOUNTER 2022-06-24 08:32 | Outpatient (REF) | payer MEDICARE, SELFPAY ==
[2022-06-24 08:51] LABS: MANUAL DIFF FLAG NO
[2022-06-24 09:24] LABS: Basophils Percent Auto 0.5 % (0-2); Eosinophils Absolute Auto 0.2 X10*3/uL (0.0-0.4); Eosinophils Percent Auto 2.7 % (0-4); Hematocrit 39.4 % (42.0-52.0); Hemoglobin 11.9 g/dl (14.0-18.0); Imm Gran Abs Auto 0.03 X10*3/uL (0.00-0.03); Imm Gran Pct Auto 0.4 % (0.0-0.4); Immature Retic Fraction 24.4 % (2.3-13.4); Lymphocytes Absolute Auto 1.8 X10*3/uL (1.2-4.9); Lymphocytes Percent Auto 23.7 % (20-40); Mean Corpuscular HGB Conc 30.2 g/dl (31.0-36.0); Mean Corpuscular Hemoglobin 24.3 pg (27.0-33.0); Mean Corpuscular Volume 80.6 fL (80.0-98.0); Mean Platelet Volume 11.6 fL (9.4-12.4); Monocytes Absolute Auto 0.7 X10*3/uL (0.1-1.2); Monocytes Percent Auto 9.4 % (2-11); Neutrophils Absolute Auto 4.9 x10*3/uL (2.0-8.3); Neutrophils Percent Auto 63.3 % (45-73); Platelet Count 221 X10*3/uL (160-400); Red Blood Count 4.89 X10*6/uL (4.60-5.80); Red Cell Distribution Width 14.9 % (11.0-16.0); Retic HGB Equivalent 26.3 pg (30.0-35.0); Reticulocytes Absolute 0.051 X10*6/uL (0.026-0.095); White Blood Count 7.8 X10*3/uL (4.8-10.8)
[2022-06-24 09:40] LABS: Estimated Average Glucose 134 mg/dL; Hemoglobin A1c % 6.3 %
[2022-06-24 09:52] LABS: Alanine Aminotransferase 9 U/L (0-40); Albumin Level 4.1 g/dL (3.5-5.0); Alkaline Phosphatase 103 U/L (39-117); Anion Gap 14 (12-20); Aspartate Amino Transferase 15 U/L (5-37); Bilirubin Total 1.1 mg/dL (0.0-1.0); Blood Urea Nitrogen 21 mg/dL (9-16); Calcium 9.1 mg/dL (8.4-10.2); Carbon Dioxide 26 mmol/L (22-29); Chloride 106 mmol/L (96-108); Cholesterol 129 mg/dL; Estimated Glomerular Filt Rate 53; Glucose Random 118 mg/dL (60-115); HDL Cholesterol 41 mg/dL; Iron 38 mcg/dL (45-160); LDL Cholesterol Calculated 70 mg/dl; Percent Iron Saturation 9 % (15-50); Sodium 141 mmol/L (135-145); Total Iron Binding Capacity 410 mcg/dL (228-428); Total Protein 6.7 g/dL (6.5-8.0); Triglycerides 94 mg/dL; Unsaturated Iron Binding 372 ug/dL
[2022-06-24 10:04] LABS: Ferritin 17 ng/mL (20-250); Free T4 (Free Thyroxine) 1.06 ng/dL (0.71-1.85); Thyroid Stimulating Hormone 1.88 uIU/mL (0.32-4.0)
[2022-06-24 10:07] LABS: Microalbum/Creatinine Ratio Ur 12.9 ug/mg cr
[2022-06-24 10:19] LABS: Folate 9.2 ng/mL (> or = 4.0); Vitamin B12 488 pg/mL (200-900)
== END 2022-06-24 08:33 | disposition home or self-care (01) ==
LOC: HO.LAB 08:32
PROVIDERS: PCP Internal Medicine; Visit Provider Internal Medicine
DX: E11.65 Type 2 diabetes mellitus with hyperglycemia (principal); E78.00 Pure hypercholesterolemia, unspecified; I10 Essential (primary) hypertension
CPT/HCPCS: 36415; 80053; 80061; 82043; 82607; 82728; 82746; 83036; 83540; 84439; 84443; 85025; 85045

== ENCOUNTER 2022-06-25 07:24 | Outpatient (REF) | payer MEDICARE, SELFPAY ==
--- NOTE | 2022-06-25 09:08 | PFT_ITS ---
Forced vital capacity 83%, FEV1 87%, FEV1/FVC ratio is 73. DEB94-69 97% and MVV 84%. Post bronchodilator therapy, there is no significant change. Total lung capacity 81%. Residual volume 94%. Diffusion capacity is 43%. DL/VA 56% CONCLUSION: Normal pulmonary function test, and there is no evidence of obstructive or restrictive pulmonary disorder. There is marked decrease in diffusion capacity, which may be due to presence of pulmonary emphysema, interstitial lung disease, pulmonary vascular disease, or nonpulmonary factors. Compared to the results of 04/28/2020, the lung volumes and flow volumes are all significantly improved. However, diffusion capacity remains unchanged. Clinical correlation is recommended. Quincy Day MD MSJignesh/MODL / [id number]
== END 2022-06-25 07:25 | disposition home or self-care (01) ==
LOC: HO.RESP 07:24
PROVIDERS: PCP Internal Medicine; Visit Provider Internal Medicine
DX: J44.9 Chronic obstructive pulmonary disease, unspecified (principal); J45.20 Mild intermittent asthma, uncomplicated; I27.20 Pulmonary hypertension, unspecified
CPT/HCPCS: 94060; 94727; 94729

== ENCOUNTER → 2022-07-11 09:07 | Outpatient (BNVA) | payer MEDICARE, SELFPAY | PROVIDERS: PCP Internal Medicine; Visit Provider Internal Medicine | DX: J45.20 Mild intermittent asthma, uncomplicated (principal); R06.09 Other forms of dyspnea; I27.20 Pulmonary hypertension, unspecified; I51.89 Other ill-defined heart diseases | CPT/HCPCS: 99212 ==

== ENCOUNTER 2022-07-19 07:30 | Outpatient (REF) | payer MEDICARE, SELFPAY ==
--- NOTE | ~2022-07-19 | CT_ITS ---
EXAMINATION: CT CHEST WITHOUT CONTRAST CLINICAL INFORMATION: Dyspnea. COMPARISON: None TECHNIQUE: 5 mm thin axial and high-resolution 1 mm thin axial images through the upper mid and lower chest were obtained without contrast. DLP: 161 mGy-cm FINDINGS: LUNGS: The lungs are hyperinflated but clear of acute pneumonic process. There are several small 2 mm punctate nodules in right upper lobe axial image 14/7, 19/7, 3 mm nodule right lower lobe axial image 28/7, punctate 2 mm calcification right lower lobe axial image 38/7 and several smaller 1 mm calcified nodules in both lower lobes. No acute consolidation, atelectasis or mass seen. No interstitial intralobular or interlobular thickening. No ground-glass density seen. MEDIASTINUM: There are trace coronary artery calcifications. The thyroid lobes are symmetrical and normal. The central trachea and the bronchi are widely patent. The heart size and the great vessels are normal caliber. There are small shotty lymph nodes in the mediastinum. The largest lymph node measures 7 mm in the precarinal space. There is no pericardial effusion. PLEURA: There is no pleural thickening, effusion or calcification. AXILLA: Unremarkable. The chest wall is unremarkable. UPPER ABDOMEN: Visualized liver, spleen, pancreas and adrenal glands unremarkable. No radiopaque gallstone seen. CT/CT chest wo con - High Res IMPRESSION: Hyperinflated lungs without acute process. There are small 2 mm and 3 mm pulmonary nodules right upper lobe and several calcified 1 mm granulomas. No abnormal mediastinal axillary lymph nodes.
== END 2022-07-19 07:31 | disposition home or self-care (01) ==
LOC: HO.CT 07:30
PROVIDERS: Visit Provider Internal Medicine
DX: J84.9 Interstitial pulmonary disease, unspecified (principal); R06.09 Other forms of dyspnea; I27.20 Pulmonary hypertension, unspecified
CPT/HCPCS: 71250

== ENCOUNTER → 2022-09-17 08:43 | Outpatient (BNVA) | payer MEDICARE, SELFPAY | PROVIDERS: PCP Internal Medicine; Referring Provider Internal Medicine; Visit Provider Internal Medicine | DX: I48.0 Paroxysmal atrial fibrillation (principal); I25.10 Atherosclerotic heart disease of native coronary artery without angina pectoris; I51.89 Other ill-defined heart diseases; I27.20 Pulmonary hypertension, unspecified; I10 Essential (primary) hypertension | CPT/HCPCS: 93005; 99212 ==

== ENCOUNTER 2022-10-07 07:38 | Outpatient (REF) | payer MEDICARE, SELFPAY ==
[2022-10-07 08:08] LABS: MANUAL DIFF FLAG NO
[2022-10-07 08:52] LABS: Basophils Percent Auto 0.3 % (0-2); Eosinophils Absolute Auto 0.2 X10*3/uL (0.0-0.4); Hematocrit 44.7 % (42.0-52.0); Hemoglobin 14.3 g/dl (14.0-18.0); Imm Gran Abs Auto 0.03 X10*3/uL (0.00-0.03); Imm Gran Pct Auto 0.3 % (0.0-0.4); Lymphocytes Absolute Auto 1.8 X10*3/uL (1.2-4.9); Lymphocytes Percent Auto 20.5 % (20-40); Mean Corpuscular Hemoglobin 27.3 pg (27.0-33.0); Mean Corpuscular Volume 85.5 fL (80.0-98.0); Mean Platelet Volume 10.8 fL (9.4-12.4); Monocytes Absolute Auto 0.9 X10*3/uL (0.1-1.2); Monocytes Percent Auto 10.2 % (2-11); Neutrophils Absolute Auto 5.8 x10*3/uL (2.0-8.3); Neutrophils Percent Auto 66.7 % (45-73); Platelet Count 228 X10*3/uL (160-400); Red Blood Count 5.23 X10*6/uL (4.60-5.80); Red Cell Distribution Width 16.4 % (11.0-16.0); Reticulocytes Absolute 0.051 X10*6/uL (0.026-0.095); White Blood Count 8.6 X10*3/uL (4.8-10.8)
[2022-10-07 08:58] LABS: Estimated Average Glucose 126 mg/dL; Hemoglobin A1C 158.9714 umol/L
[2022-10-07 09:42] LABS: Alanine Aminotransferase 16 U/L (0-40); Albumin Level 4.1 g/dL (3.5-5.0); Alkaline Phosphatase 103 U/L (39-117); Anion Gap 12 (12-20); Aspartate Amino Transferase 19 U/L (5-37); Bilirubin Total 1.2 mg/dL (0.0-1.0); Blood Urea Nitrogen 19 mg/dL (9-16); Calcium 9.1 mg/dL (8.4-10.2); Carbon Dioxide 30 mmol/L (22-29); Chloride 105 mmol/L (96-108); Estimated Glomerular Filt Rate 60; Ferritin 42 ng/mL (20-250); Glucose Random 104 mg/dL (60-115); Iron 178 mcg/dL (45-160); Percent Iron Saturation 57 % (15-50); Potassium 5.5 mmol/L (3.3-5.1); Sodium 141 mmol/L (135-145); Total Iron Binding Capacity 312 mcg/dL (228-428); Total Protein 6.5 g/dL (6.5-8.0); Unsaturated Iron Binding 134 ug/dL
[2022-10-07 09:51] LABS: Folate 8.2 ng/mL (> or = 4.0); Vitamin B12 494 pg/mL (200-900)
== END 2022-10-07 07:39 | disposition home or self-care (01) ==
LOC: HO.LAB 07:38
PROVIDERS: PCP Internal Medicine; Visit Provider Internal Medicine
DX: E11.65 Type 2 diabetes mellitus with hyperglycemia (principal); D50.9 Iron deficiency anemia, unspecified
CPT/HCPCS: 36415; 80053; 82607; 82728; 82746; 83036; 83540; 85025; 85045

== ENCOUNTER 2022-10-14 09:29 | Outpatient (REF) | payer MEDICARE, SELFPAY ==
[2022-10-14 10:39] LABS: Anion Gap 11 (12-20); Blood Urea Nitrogen 20 mg/dL (9-16); Calcium 9.6 mg/dL (8.4-10.2); Carbon Dioxide 29 mmol/L (22-29); Chloride 104 mmol/L (96-108); Estimated Glomerular Filt Rate > 60; Glucose Random 109 mg/dL (60-115); Potassium 5.3 mmol/L (3.3-5.1); Sodium 139 mmol/L (135-145)
== END 2022-10-14 09:30 | disposition home or self-care (01) ==
LOC: HO.LAB 09:29
PROVIDERS: PCP Internal Medicine; Visit Provider Physician Assistant
DX: E87.5 Hyperkalemia (principal)
CPT/HCPCS: 36415; 80048

== ENCOUNTER → 2022-12-24 09:07 | Outpatient (BNVA) | payer MEDICARE, SELFPAY | PROVIDERS: PCP Internal Medicine; Referring Provider Internal Medicine; Visit Provider Internal Medicine | DX: I48.92 Unspecified atrial flutter (principal) | CPT/HCPCS: 93005 ==

== ENCOUNTER → 2022-12-30 13:02 | Outpatient (REF) | payer MEDICARE, SELFPAY ==
--- NOTE | 2022-12-30 13:06 | HM_ITS ---
Conclusion: 1. Patient was monitored for total period of 2 days and 17 hours 2. Baseline was normal sinus with average heart of 72 beats per minute 3. Total of 6195 PACs accounting for 2.2% total beats account for frequent PACs 4. Frequent short runs of SVT mostly 3-4 beats with fastest at 178 beats per minute and the longest 24 beats 5. No patient reported events MTDD
== END ==
LOC: HO.CARD 13:02
PROVIDERS: PCP Internal Medicine; Visit Provider Internal Medicine
DX: R00.2 Palpitations (principal); I48.0 Paroxysmal atrial fibrillation
CPT/HCPCS: 93242

== ENCOUNTER 2023-01-22 08:46 | Outpatient (REF) | payer MEDICARE, SELFPAY ==
[2023-01-22 09:01] LABS: MANUAL DIFF FLAG NO
[2023-01-22 09:34] LABS: Basophils Percent Auto 0.5 % (0-2); Eosinophils Absolute Auto 0.1 X10*3/uL (0.0-0.4); Eosinophils Percent Auto 1.6 % (0-4); Hematocrit 49.1 % (42.0-52.0); Hemoglobin 15.6 g/dl (14.0-18.0); Imm Gran Abs Auto 0.03 X10*3/uL (0.00-0.03); Imm Gran Pct Auto 0.4 % (0.0-0.4); Lymphocytes Absolute Auto 2.3 X10*3/uL (1.2-4.9); Lymphocytes Percent Auto 30.7 % (20-40); Mean Corpuscular HGB Conc 31.8 g/dl (31.0-36.0); Mean Corpuscular Hemoglobin 28.8 pg (27.0-33.0); Mean Corpuscular Volume 90.8 fL (80.0-98.0); Mean Platelet Volume 10.5 fL (9.4-12.4); Monocytes Absolute Auto 0.7 X10*3/uL (0.1-1.2); Monocytes Percent Auto 8.8 % (2-11); Neutrophils Absolute Auto 4.4 x10*3/uL (2.0-8.3); Platelet Count 244 X10*3/uL (160-400); Red Blood Count 5.41 X10*6/uL (4.60-5.80); Red Cell Distribution Width 13.2 % (11.0-16.0); White Blood Count 7.5 X10*3/uL (4.8-10.8)
[2023-01-22 09:40] LABS: Estimated Average Glucose 128 mg/dL; Hemoglobin A1c % 6.1 %
[2023-01-22 09:51] LABS: B Type Natriuretic Peptide 58 pg/mL (<100)
[2023-01-22 09:54] LABS: Alanine Aminotransferase 14 U/L (0-40); Albumin Level 4.2 g/dL (3.5-5.0); Alkaline Phosphatase 121 U/L (39-117); Anion Gap 15 (12-20); Aspartate Amino Transferase 20 U/L (5-37); Bilirubin Total 1.7 mg/dL (0.0-1.0); Blood Urea Nitrogen 17 mg/dL (9-16); Calcium 9.8 mg/dL (8.4-10.2); Carbon Dioxide 27 mmol/L (22-29); Chloride 105 mmol/L (96-108); Estimated Glomerular Filt Rate 60; Glucose Random 111 mg/dL (60-115); Sodium 142 mmol/L (135-145); Total Protein 6.7 g/dL (6.5-8.0)
== END 2023-01-22 08:47 | disposition home or self-care (01) ==
LOC: HO.LAB 08:46
PROVIDERS: PCP Internal Medicine; Visit Provider Internal Medicine
DX: I48.0 Paroxysmal atrial fibrillation (principal); E11.65 Type 2 diabetes mellitus with hyperglycemia
CPT/HCPCS: 36415; 80053; 83036; 83735; 83880; 85025

== ENCOUNTER → 2023-02-04 10:10 | Outpatient (BNVA) | payer MEDICARE, SELFPAY | PROVIDERS: PCP Internal Medicine; Referring Provider Internal Medicine; Visit Provider Internal Medicine | DX: I48.20 Chronic atrial fibrillation, unspecified (principal); I27.20 Pulmonary hypertension, unspecified; I10 Essential (primary) hypertension; E11.65 Type 2 diabetes mellitus with hyperglycemia; E11.42 Type 2 diabetes mellitus with diabetic polyneuropathy; E55.9 Vitamin D deficiency, unspecified; Z79.82 Long term (current) use of aspirin; Z79.899 Other long term (current) drug therapy; Z79.01 Long term (current) use of anticoagulants | CPT/HCPCS: 99212 ==

== ENCOUNTER 2023-05-21 08:40 | Outpatient (AMB) | payer MEDICARE, SELFPAY ==
[2023-05-21 08:50] VITALS: BP 122/76; PULSE 73; O2SAT 96; BMI 23.5
--- NOTE | 2023-05-21 08:50 | A.OFFPC_ITS ---
Vital Signs 05/21/23 08:50 Height 5 ft 9 in Weight 159 lb BMI 23.5 BP 122/76 Blood Pressure Location Lt brachial Position Sitting Pulse 73 Pulse Source Pulse Oximeter Pulse Oximetry (%) 96 Oxygen Delivery Method Room Air Intake Visit Reasons: Annual Physical Allergies lisinopril Allergy (Unknown, Verified 05/21/23 08:50) hyperkalemia Medication List - Last Reconciled 05/21/23 by Layne Kimball MD albuterol sulfate 90 mcg/actuation (ProAir HFA) 2 puffs inhalation Q6H PRN apixaban (Eliquis) 5 mg PO BID 90 days aspirin (Adult Low Dose Aspirin) 81 mg PO DAILY atorvastatin 40 mg PO DAILY cholecalciferol (vitamin D3) 25 mcg PO DAILY ferrous sulfate 325 mg PO DAILY metoprolol tartrate 25 mg (1/2 x 50 mg) PO BID 90 days Tobacco use date assessed: 01/29/23 Fall risk assessment: 1 Fall in past year (Light headed and then fell into his pool) Last assessed Fall Risk: 05/21/23 Dental Screening Dental Screen Date: 05/21/23 Did you have a dental visit in the last 12 months?: No Did you have a dental problem in the last 6 months where you did not have access to dental care?: No Was dental information given to patient?: No (Dentures) HPI Annual Physical HPI Details 87-year-old male with diabetes mellitus controlled coronary artery disease hypercholesterolemia COPD atrial fibrillation on anticoagulation hypertension last seen in January 2023. Patient is here for physical exam. Patient follows up with Cardiology underwent a SUKUMAR and cardioversion last year on Multaq but was back in atrial fibrillation Multaq was stopped. Presently on beta-blockers myocardial perfusion study May 2022 ischemia finding echocardiogram ejection fraction 61% severe diastolic dysfunction moderate pulmonary hypertension. noted wieght loss last september. 2 weeks ago - walking becamelightheaded and woke up in the pool. - cannot bria mber chest pain, sob PFSH Medical History (Updated 05/21/23 @ 10:15 by Layne Kimball MD) Annual physical exam Asthma Atherosclerotic cardiovascular disease Atrial fibrillation with rapid ventricular response Atrial fibrillation with rapid ventricular response Chest pain COPD (chronic obstructive pulmonary disease) Coronary artery disease Diabetic neuropathy Diastolic dysfunction CEBALLOS (dyspnea on exertion) Essential hypertension Hypercholesterolemia Iron deficiency anemia Left renal stone Pulmonary hypertension Type 2 diabetes mellitus with hyperglycemia Vitamin D deficiency Surgical History History of appendectomy History of inguinal hernia repair History of lymph node excision Family History Father CVD (cardiovascular disease) Myocardial infarction Mother Hypertension Heart disease Diabetes CVD (cardiovascular disease) Sister No problems noted. Sister Diabetes Social History Household Members: Family Housing: House Do you presently have visiting nurse or other home services: No Alcohol intake: never Patient Tobacco Use Status: Former Tobacco user Tobacco use type: Cigarette e-Cigarette/Vaping Use: Never Used Second Hand Smoke Exposure: No service: No Current occupational status: retired Cognitive needs: No Hearing needs: Yes Vision needs: Yes Questionnaire PHQ-9 Over the last 2 weeks, how often have you been bothered by any of the following problems? 1. Little interest or pleasure in doing things: not at all 2. Feeling down, depressed, or hopeless: not at all 3. Trouble falling or staying asleep, or sleeping too much: not at all 4. Feeling tired or having little energy: not at all 5. Poor appetite or overeating: not at all 6. Feeling bad about yourself - or that you are a failure or have let yourself or your family down: not at all 7. Trouble concentrating on things, such as reading the newspaper or watching television: not at all 8. Moving or speaking so slowly that other people could have noticed. Or the opposite - being so fidgety or restless that you have been moving around a lot more than usual: not at all 9. Thoughts that you would be better off or of hurting yourself in some way: not at all Total score: 0 Depression Screening Interpretation: Negative Source: Developed by Drs. Adam Ennis, Mel Burch, Fortunato Richardson and colleagues, with an educational tamara from [employer]. Thrive Questionnaire Date Thrive assessed: 01/29/23 AUDIT C Alcohol Use Questionnaire (AUDIT-C) 1. How often do you have a drink containing alcohol?: Never Total Score: 0 Score Reviewed/Action Taken: No ALEXANDRA-7 AMB Questionnaire ALEXANDRA-7 Date ALEXANDRA - 7 assessed: 01/29/23 Source: Developed by Drs. Adam Ennis, Mel Burch, Fortunato Richardson and colleagues, with an educational tamara from [employer]. Review of Systems Const Denies poor appetite and Denies weakness Eyes Denies no additional complaints ENT Reports Normal hearing present, Denies dizziness, Denies nasal congestion, Denies tinnitus and Denies sore throat Card Denies chest pain, Denies syncope, Denies rapid heart rate and Denies dyspnea Resp Denies cough and Denies dyspnea GI Denies change in stool character, Reports constipation, Denies diarrhea, Denies nausea and Denies vomiting Denies dysuria and Denies urinary frequency Neuro Reports Normal hearing present, Denies confusion, Denies dizziness, Denies syncope and Denies weakness Psych Denies confusion Physical exam (Primary Care) Vital Signs: Last Vital Signs Pulse 73 05/21/23 08:50 BP 122/76 05/21/23 08:50 Pulse Ox 96 05/21/23 08:50 Oxygen Delivery Method Room Air 05/21/23 08:50 Care Plan Goal for BP management: pedal pulse good, pin prick sensory deficit sole of feet, guaic negative prostate N BMI result Body Mass Index 23.5 Tobacco/Smoking Status: Tobacco use Status Tobacco use date assessed 01/29/23 05/21/23 08:51 Patient Tobacco Use Status Former Tobacco user 05/21/23 08:51 Tobacco use type Cigarette 05/21/23 08:51 e-Cigarette/Vaping Use Never Used 05/21/23 08:51 PHQ-9: PHQ-9 Score PHQ-9: Total score 0 05/21/23 09:09 Depression Screening Interpretation: Negative Thrive Assessment: Date of Thrive Assessment Date Thrive assessed 01/29/23 05/21/23 08:51 Const General: No confusion Orientation/consciousness: No confusion HENMT Head: Yes normocephalic Ears: external ears normal and TM's normal bilaterally Face and sinus: Yes normal facial exam Mouth: moist mucous membranes Throat: Yes tonsils normal Eyes Conjunctivae: conjunctivae normal Pupils: Equal, round and reactive pupils present and Pupil accommodation reflex normal Direct Ophthalmoscopy: normal light reflex Neck Neck: No lymphadenopathy Thyroid: Thyroid normal Chest Chest palpation & inspection: normal inspection of the chest Resp Effort & Inspection: normal respiratory effort and no audible wheezes Auscultation: clear to auscultation bilaterally, no crackles, no wheezes and lung sounds not diminished Cardio Other: irregular rate and rythm Peripheral pulses: radial pulses present and dorsalis pedis present GI Palpation (GI): no masses Auscultation: normal bowel sounds and normoactive bowel sounds Other: interdigital whitish desquamation Male General Exam: Yes normal external exam Skin General skin exam: no rashes or lesions noted Rashes: no rashes Neuro General: No confusion Cranial nerves: Yes Equal, round and reactive pupils present and Yes Normal hearing present Cognition (Neuro): normal cognition Gait exam (Neuro): Normal gait present Motor exam (neuro): 5/5 motor strength present throughout Deep tendon reflexes (DTR's): Right brachioradialis reflex intensity grade: 2+, Left brachioradialis reflex intensity grade: 2+, Right patellar reflex intensity grade: 2+ and Left patellar reflex intensity grade: 2+ Extrem General: No edema Results AMB Hemoglobin A1c AMB Hemoglobin A1c 6.1 % Last Edit by Meena Osorio CMA on 05/21/23 09 :10 Results Reviewed Results Reviewed: Laboratory Last Values Hgb A1c (Clinic) 6.1 % (4.0-6.0) H 05/21/23 08:51 Assessment and Plan Assessment & Plan (1) Annual physical exam: Code(s): Z00.00 - Encounter for general adult medical examination without abnormal findings (2) Atherosclerotic cardiovascular disease: Code(s): I25.10 - Atherosclerotic heart disease of [place] coronary artery without angina pectoris Plan: Control the cholesterol, weight, blood pressure, diabetes (3) Essential hypertension: Code(s): I10 - Essential (primary) hypertension Plan: Continue with blood pressure medication. Decrease salt intake and exercise presently on metoprolol 25 mg twice a day amlodipine 5 mg once a day (4) Hypercholesterolemia: Code(s): E78.00 - Pure hypercholesterolemia, unspecified Plan: Avoid fried foods, chicken skin, eggs, butter margarine, pastries and meat. Be it pork or beef they have a lot of cholesterol LDL goal of less than 70 and triglyceride of less than 150 patient's last blood work was June 2022 (5) Asthma: Comment: I THINK THE HE HAS A MILD DEGREE OF THE REVERSIBLE BRONCHOSPASM/ASTHMA AND NOT MUCH COPD. TX : USE ALBUTEROL HFA 2 PUFFS Q 4-6 HOURS ONLY P.R.N., IF HE HAS SHORTNESS OF BREATH OR WHEEZING AT REST. Code(s): J45.909 - Unspecified asthma, uncomplicated Qualifiers: Asthma severity: mild Asthma persistence: intermittent Asthma complication type: uncomplicated Qualified Code(s): J45.20 - Mild intermittent asthma, uncomplicated Plan: Continue with the inhalers (6) Type 2 diabetes mellitus with hyperglycemia: Comment: Dr. Franklin Code(s): E11.65 - Type 2 diabetes mellitus with hyperglycemia Qualifiers: Diabetes mellitus senior living insulin use: without senior living use Qualified Code(s): E11.65 - Type 2 diabetes mellitus with hyperglycemia Plan: Decrease the amount of carbohydrate intake, pasta, bread, rice and potatoes are all sugar and that is aside from all the sweet stuff, remember that fruits are good but they are Sweet also. Hemoglobin A1c goal of less than 7.0 (7) Paroxysmal atrial fibrillation: Code(s): I48.0 - Paroxysmal atrial fibrillation Plan: Continue with anticoagulation (8) Syncopal episodes: Code(s): R55 - Syncope and collapse (9) Tinea pedis: Code(s): B35.3 - Tinea pedis Orders: Orders Magnesium Today R55 - Syncope and collapse ECG 3 day holter monitor Today R55 - Syncope and collapse AMB Hemoglobin A1c Today Z13.9 - Encounter for screening, unspecified Medications: New miconazole nitrate 2% (Zeasorb AF) 1 appl topical BID 85 grams 3RF B35.3 - Tinea pedis clotrimazole 1% 1 appl topical BID 45 grams 0RF 4 weeks B35.3 - Tinea pedis Refilled apixaban (Eliquis) 5 mg PO BID 90 days 180 tabs 3RF I48.0 - Paroxysmal atrial fibrillation Coding Level of Care Code Est Pt Prev Care >65y([id number]) Diagnoses Annual physical exam Z00.00 Atherosclerotic cardiovascular disease I25.10 Essential hypertension I10 Hypercholesterolemia E78.00 Asthma J45.20 Asthma severity: mild Asthma persistence: intermittent Asthma complication type: uncomplicated Type 2 diabetes mellitus with hyperglycemia E11.65 Diabetes mellitus senior living insulin use: without terminal superintendent use Paroxysmal atrial fibrillation I48.0 Syncopal episodes R55 Tinea pedis B35.3 Additional Codes PHQ-9 - 44751 - PHQ-9 Billing: Haleigh ([id number])
== END 2023-05-21 10:20 | disposition home or self-care (01) ==
PROVIDERS: PCP Internal Medicine; Visit Provider Internal Medicine
DX: Z00.00 Encounter for general adult medical examination without abnormal findings (principal); I10 Essential (primary) hypertension; J45.20 Mild intermittent asthma, uncomplicated; E11.65 Type 2 diabetes mellitus with hyperglycemia; I48.0 Paroxysmal atrial fibrillation; I25.10 Atherosclerotic heart disease of native coronary artery without angina pectoris; E78.00 Pure hypercholesterolemia, unspecified; R55 Syncope and collapse; B35.3 Tinea pedis; Z13.9 Encounter for screening, unspecified
CPT/HCPCS: 83036; 99397

== ENCOUNTER 2023-05-27 06:14 | Outpatient (REF) | payer MEDICARE, SELFPAY ==
[2023-05-27 06:28] LABS: MANUAL DIFF FLAG NO
[2023-05-27 07:25] LABS: Basophils Percent Auto 0.4 % (0-2); Eosinophils Absolute Auto 0.2 X10*3/uL (0.0-0.4); Eosinophils Percent Auto 2.1 % (0-4); Hematocrit 51.2 % (42.0-52.0); Hemoglobin 16.7 g/dl (14.0-18.0); Imm Gran Abs Auto 0.04 X10*3/uL (0.00-0.03); Imm Gran Pct Auto 0.4 % (0.0-0.4); Lymphocytes Absolute Auto 3.1 X10*3/uL (1.2-4.9); Lymphocytes Percent Auto 34.4 % (20-40); Mean Corpuscular HGB Conc 32.6 g/dl (31.0-36.0); Mean Corpuscular Hemoglobin 28.6 pg (27.0-33.0); Mean Corpuscular Volume 87.7 fL (80.0-98.0); Mean Platelet Volume 10.9 fL (9.4-12.4); Monocytes Absolute Auto 0.9 X10*3/uL (0.1-1.2); Monocytes Percent Auto 9.4 % (2-11); Neutrophils Absolute Auto 4.9 x10*3/uL (2.0-8.3); Neutrophils Percent Auto 53.3 % (45-73); Platelet Count 218 X10*3/uL (160-400); Red Blood Count 5.84 X10*6/uL (4.60-5.80); Red Cell Distribution Width 13.2 % (11.0-16.0); White Blood Count 9.1 X10*3/uL (4.8-10.8)
[2023-05-27 07:54] LABS: B Type Natriuretic Peptide 35 pg/mL (<100)
[2023-05-27 07:56] LABS: Estimated Average Glucose 123 mg/dL; Hemoglobin A1c % 5.9 %
[2023-05-27 08:00] LABS: Alanine Aminotransferase 20 U/L (0-40); Albumin Level 4.1 g/dL (3.5-5.0); Alkaline Phosphatase 101 U/L (39-117); Anion Gap 11 (12-20); Aspartate Amino Transferase 21 U/L (5-37); Bilirubin Total 1.3 mg/dL (0.0-1.0); Blood Urea Nitrogen 16 mg/dL (9-16); Calcium 9.9 mg/dL (8.4-10.2); Carbon Dioxide 30 mmol/L (22-29); Chloride 105 mmol/L (96-108); Cholesterol 146 mg/dL; Estimated Glomerular Filt Rate 52; Glucose Random 115 mg/dL (60-115); HDL Cholesterol 43 mg/dL; LDL Cholesterol Calculated 72 mg/dl; Potassium 4.8 mmol/L (3.3-5.1); Sodium 141 mmol/L (135-145); Total Protein 6.8 g/dL (6.5-8.0); Triglycerides 157 mg/dL
[2023-05-27 08:19] LABS: Ferritin 68 ng/mL (20-250); Free T4 (Free Thyroxine) 0.99 ng/dL (0.71-1.85); Thyroid Stimulating Hormone 2.71 uIU/mL (0.32-4.0)
[2023-05-27 08:23] LABS: Folate 6.3 ng/mL (> or = 4.0); Vitamin B12 371 pg/mL (200-900)
[2023-05-27 11:37] LABS: Creatinine Urine 149.98 mg/dL; Microalbum/Creatinine Ratio Ur 7.3 ug/mg cr
== END 2023-05-27 06:15 | disposition home or self-care (01) ==
LOC: HO.LAB 06:14
PROVIDERS: PCP Internal Medicine; Visit Provider Internal Medicine
DX: E11.65 Type 2 diabetes mellitus with hyperglycemia (principal); I48.0 Paroxysmal atrial fibrillation; E78.00 Pure hypercholesterolemia, unspecified; R55 Syncope and collapse
CPT/HCPCS: 36415; 80053; 80061; 82043; 82607; 82728; 82746; 83036; 83735; 83880; 84439; 84443; 85025

== ENCOUNTER → 2023-06-13 07:35 | Outpatient (REF) | payer MEDICARE, SELFPAY ==
--- NOTE | 2023-06-13 07:37 | HM_ITS ---
Conclusion: 1. Patient was monitored for total period of 2 days and 23 hours 2. Baseline was atrial fibrillation with average heart of 97 beats per minute with borderline in adequate rate control 3. Occasional wide complexes notice suggestive PVCs with episode of 1 fast why complex rate which could represent atrial fibrillation with aberrancy 4. No significant pauses noted 5. No patient reported symptoms MTDD
== END ==
LOC: HO.CARD 07:35
PROVIDERS: PCP Internal Medicine; Visit Provider Internal Medicine
DX: R55 Syncope and collapse (principal)
CPT/HCPCS: 93242

== ENCOUNTER → 2023-06-13 07:37 | Outpatient (BNV) | payer MEDICARE, SELFPAY | PROVIDERS: PCP Internal Medicine; Visit Provider Internal Medicine Cardiovascular Disease | DX: I49.1 Atrial premature depolarization (principal) | CPT/HCPCS: 93244 ==

== ENCOUNTER 2023-07-01 08:11 | Outpatient (AMB) | payer MEDICARE, SELFPAY ==
[2023-07-01 08:17] VITALS: BP 116/68; PULSE 59; O2SAT 96; BMI 23.8
--- NOTE | 2023-07-01 08:17 | A.OFFPC_ITS ---
Vital Signs 07/01/23 08:17 Height 5 ft 9 in Weight 161 lb BMI 23.8 BP 116/68 Blood Pressure Location Lt brachial Position Sitting Pulse 59 Pulse Source Pulse Oximeter Pulse Oximetry (%) 96 Oxygen Delivery Method Room Air Intake Visit Reasons: CAD, DM Allergies lisinopril Allergy (Unknown, Verified 07/01/23 08:17) hyperkalemia Tobacco use date assessed: 01/29/23 Fall risk assessment: No Falls in past year Last assessed Fall Risk: 07/01/23 Dental Screening Dental Screen Date: 07/01/23 Did you have a dental visit in the last 12 months?: No Did you have a dental problem in the last 6 months where you did not have access to dental care?: No Was dental information given to patient?: No HPI CAD, DM HPI Details 87-year-old male with coronary artery disease hypertension hypercholesterolemia controlled diabetes mellitus asthma atrial fibrillation coming in for follow-up. Patient had a physical exam in May 2023 patient was advised Holter monitor and blood work. PAtient has been doing good - previous episode of syncope - walking on the pool and felt dizzy- pateint will be seeing cardiology soon otherwise no nausea no vomiting no chest pains no shortness of breath no bowel bladder symptoms no cough. Patient knows to keep well hydrated eats healthy does not miss meals and does the daily routine of being active without shortness of breath or chest pains [facility] Medical History (Updated 07/01/23 @ 08:35 by Layne Kimball MD) Annual physical exam Asthma Atherosclerotic cardiovascular disease Atrial fibrillation and flutter Atrial fibrillation with rapid ventricular response Atrial fibrillation with rapid ventricular response Chest pain COPD (chronic obstructive pulmonary disease) Coronary artery disease Diabetic neuropathy Diastolic dysfunction CEBALLOS (dyspnea on exertion) Essential hypertension Hospital discharge follow-up Hypercholesterolemia Hyperkalemia Hyperkalemia Iron deficiency anemia Left renal stone Pulmonary hypertension Type 2 diabetes mellitus with hyperglycemia Vitamin D deficiency Surgical History History of appendectomy History of inguinal hernia repair History of lymph node excision Family History Father CVD (cardiovascular disease) Myocardial infarction Mother Hypertension Heart disease Diabetes CVD (cardiovascular disease) Sister No problems noted. Sister Diabetes Social History Household Members: Family Housing: House Do you presently have visiting nurse or other home services: No Alcohol intake: never Patient Tobacco Use Status: Former Tobacco user Tobacco use type: Cigarette e-Cigarette/Vaping Use: Never Used Second Hand Smoke Exposure: No service: No Current occupational status: retired Cognitive needs: No Hearing needs: Yes Vision needs: Yes Questionnaire PHQ-9 Over the last 2 weeks, how often have you been bothered by any of the following problems? 1. Little interest or pleasure in doing things: not at all 2. Feeling down, depressed, or hopeless: not at all 3. Trouble falling or staying asleep, or sleeping too much: not at all 4. Feeling tired or having little energy: not at all 5. Poor appetite or overeating: not at all 6. Feeling bad about yourself - or that you are a failure or have let yourself or your family down: not at all 7. Trouble concentrating on things, such as reading the newspaper or watching television: not at all 8. Moving or speaking so slowly that other people could have noticed. Or the opposite - being so fidgety or restless that you have been moving around a lot more than usual: not at all 9. Thoughts that you would be better off or of hurting yourself in some way: not at all Total score: 0 Depression Screening Interpretation: Negative Source: Developed by Drs. Adam Ennis, Fortunato Thomas and colleagues, with an educational tamara from [employer]. Thrive Questionnaire Date Thrive assessed: 01/29/23 AUDIT C Alcohol Use Questionnaire (AUDIT-C) 1. How often do you have a drink containing alcohol?: Never Total Score: 0 Score Reviewed/Action Taken: No ALEXANDRA-7 AMB Questionnaire ALEXANDRA-7 Date ALEXANDRA - 7 assessed: 01/29/23 Source: Developed by Drs. Adam Ennis, Fortunato Thomas and colleagues, with an educational tamara from [employer]. Physical exam (Primary Care) Vital Signs: Last Vital Signs Pulse 59 07/01/23 08:17 BP 116/68 07/01/23 08:17 Pulse Ox 96 07/01/23 08:17 Oxygen Delivery Method Room Air 07/01/23 08:17 BMI result Body Mass Index 23.8 Tobacco/Smoking Status: Tobacco use Status Tobacco use date assessed 01/29/23 07/01/23 08:20 Patient Tobacco Use Status Former Tobacco user 07/01/23 08:20 Tobacco use type Cigarette 07/01/23 08:20 e-Cigarette/Vaping Use Never Used 07/01/23 08:20 PHQ-9: PHQ-9 Score PHQ-9: Total score 0 07/01/23 08:20 Depression Screening Interpretation: Negative Thrive Assessment: Date of Thrive Assessment Date Thrive assessed 01/29/23 07/01/23 08:20 Const General: alert; No acute distress Eyes Conjunctivae: conjunctivae normal Resp Auscultation: clear to auscultation bilaterally Cardio Rate: regular rate Rhythm: regular rhythm GI Inspection: Yes normal to inspection Extrem General: Yes normal to inspection and No edema Assessment and Plan Assessment & Plan (1) Type 2 diabetes mellitus with hyperglycemia: Comment: Dr. Franklin Code(s): E11.65 - Type 2 diabetes mellitus with hyperglycemia Qualifiers: Diabetes mellitus manager long term care insulin use: without correction use Qualified Code(s): E11.65 - Type 2 diabetes mellitus with hyperglycemia Plan: Decrease the amount of carbohydrate intake, pasta, bread, rice and potatoes are all sugar and that is aside from all the sweet stuff, remember that fruits are good but they are Sweet also. Hemoglobin A1c goal of less than 7.0 patient is not on any diabetes medication. Presently diet controlled (2) Coronary artery disease: Comment: PTCA 1991 and 1998 stent placement April [address] Alvarado echo ejection fraction 60 65% grade 2 diastolic dysfunction March 2017, September 2017, November 2017 positive stress test echo December 2019 normal ejection fraction, May 2022 myocardial perfusion scan or Code(s): I25.10 - Atherosclerotic heart disease of [place] coronary artery without angina pectoris Qualifiers: Coronary Disease-Associated Artery/Lesion type: [place] artery [place] vs. transplanted heart: [place] heart Associated angina: without angina Qualified Code(s): I25.10 - Atherosclerotic heart disease of [place] coronary artery without angina pectoris Plan: Control the cholesterol, weight, blood pressure, diabetes (3) Essential hypertension: Code(s): I10 - Essential (primary) hypertension Plan: Continue with blood pressure medication. Decrease salt intake and exercise patient takes metoprolol half a tablet 50 mg twice a day (4) Hypercholesterolemia: Code(s): E78.00 - Pure hypercholesterolemia, unspecified Plan: Avoid fried foods, chicken skin, eggs, butter margarine, pastries and meat. Be it pork or beef they have a lot of cholesterol LDL goal of less than 70 and patient is on atorvastatin 40 mg once a day May 2023 last blood work 72 (5) Paroxysmal atrial fibrillation: Code(s): I48.0 - Paroxysmal atrial fibrillation Plan: Continue with anticoagulation and beta-slick (6) COPD (chronic obstructive pulmonary disease): Comment: DUE TO HIS PAST HISTORY OF SMOKING HE DOES HAVE SOME DEGREE OF CHRONIC OBSTRU CTIVE PULMONARY DISEASE WHICH IS NOT ACTIVE AT PRESENT. PLAN IS TO DO PULMONARY FUNCTION TEST AGAIN, AND THEN DECIDE IF HE WOULD NEED SOME MAINTENANCE REGIMEN TO IMPROVE HIS BREATHING. PATIENT WAS EDUCATED ABOUT ASTHMA, AND COPD. Code(s): J44.9 - Chronic obstructive pulmonary disease, unspecified Plan: COPD is controlled continue with inhaler as needed Orders: Orders US carotid duplex BI Today I48.0 - Paroxysmal atrial fibrillation Coding Level of Care Code Est Pt Level 4 (43251) Diagnoses Type 2 diabetes mellitus with hyperglycemia E11.65 Diabetes mellitus manager long term care insulin use: without manager long term care use Coronary artery disease I25.10 Coronary Disease-Associated Artery/Lesion type: [place] artery [place] vs. transplanted heart: [place] heart Associated angina: without angina Essential hypertension I10 Hypercholesterolemia E78.00 Paroxysmal atrial fibrillation I48.0 COPD (chronic obstructive pulmonary disease) J44.9 Additional Codes PHQ-9 - 94160 - PHQ-9 Billing: Y ([id number])
== END 2023-07-01 08:45 | disposition home or self-care (01) ==
PROVIDERS: PCP Internal Medicine; Visit Provider Internal Medicine
DX: E11.65 Type 2 diabetes mellitus with hyperglycemia (principal); I48.0 Paroxysmal atrial fibrillation; I10 Essential (primary) hypertension; J44.9 Chronic obstructive pulmonary disease, unspecified; E78.00 Pure hypercholesterolemia, unspecified; I25.10 Atherosclerotic heart disease of native coronary artery without angina pectoris
CPT/HCPCS: 99214

== ENCOUNTER 2023-07-22 10:10 | Outpatient (REF) | payer MEDICARE, SELFPAY ==
--- NOTE | ~2023-07-22 | US_ITS ---
EXAMINATION: US EXTRACRANIAL CAROTID DUPLEX, BILATERAL CLINICAL INFORMATION: Paroxysmal atrial fibrillation. Diabetes, smoking, hypertension, hyperlipidemia, COPD, syncope. COMPARISON: Carotid ultrasound 07/28/2018. TECHNIQUE: Real-time ultrasound and Doppler techniques (integrating B-mode 2-D vascular images, Doppler spectral analysis and color-flow Doppler imaging) were utilized to interrogate the extracranial carotid arteries, the vertebral arteries and proximal subclavian arteries bilaterally. The degree of stenosis is determined by criteria similar to NASCET. FINDINGS: Right Side: 1. There is mild to moderate atherosclerotic plaque seen in the bifurcation/proximal ICA region. 2. The common carotid artery PSV proximally is 73 cm/s and distally 62 cm/s. 3. The proximal internal carotid artery velocities are 43 cm/s systolic and 11 cm/s diastolic. 4. The proximal external carotid artery PSV is 126 cm/s. 5. The vertebral artery shows antegrade flow. 6. The subclavian artery waveforms are normal. Left Side: 1. There is mild to moderate atherosclerotic plaque seen in the bifurcation/proximal ICA region. 2. The common carotid artery PSV proximally is 64 cm/s and distally 56 cm/s. 3. The proximal internal carotid artery velocities are 59 cm/s systolic and 19 cm/s diastolic. 4. The proximal external carotid artery PSV is 94 cm/s. 5. The vertebral artery shows antegrade flow. 6. The subclavian artery waveforms are normal. US/US carotid duplex BI IMPRESSION: 1. RIGHT: Minimal, non-hemodynamically significant stenosis of the proximal right internal carotid artery corresponding to a 0-49% stenosis by velocity criteria. 2. LEFT: Minimal, non-hemodynamically significant stenosis of the proximal left internal carotid artery corresponding to a 0-49% stenosis by velocity criteria. 3. There is no change in the category severity of disease when compared to the previous study dated 08/27/2018. 4. An arrhythmia is noted.
== END 2023-07-22 10:11 | disposition home or self-care (01) ==
LOC: HO.HMGCX 10:10
PROVIDERS: PCP Internal Medicine; Visit Provider Internal Medicine
DX: R55 Syncope and collapse (principal); I48.0 Paroxysmal atrial fibrillation
CPT/HCPCS: 93880

== ENCOUNTER 2023-08-12 10:17 | Outpatient (AMB) | payer MEDICARE, SELFPAY ==
[2023-08-12 11:02] VITALS: BP 136/82; PULSE 79; BMI 23.8
--- NOTE | 2023-08-12 11:02 | MHC.OFFVIS ---
Intake Vital Signs 08/12/23 11:02 Height 5 ft 9 in Weight 161 lb 6.054 oz BMI 23.8 BP 136/82 Blood Pressure Location Lt brachial Position Sitting Pulse 79 Intake Visit Reasons: 6 mth f/up Intake Note: 6 month follow up Occupational Health Physiotherapist Required: No Accompanied by: Self / Same As Patient Allergies lisinopril Allergy (Unknown, Verified 08/12/23 11:04) hyperkalemia Medication List - Last Reconciled 08/12/23 by Tayo Harley MD albuterol sulfate 90 mcg/actuation (ProAir HFA) 2 puffs inhalation Q6H PRN apixaban (Eliquis) 5 mg PO BID 90 days aspirin (Adult Low Dose Aspirin) 81 mg PO DAILY atorvastatin 40 mg PO DAILY cholecalciferol (vitamin D3) 25 mcg PO DAILY clotrimazole 1% 1 appl topical BID 4 weeks ferrous sulfate 325 mg PO DAILY metoprolol tartrate 25 mg (1/2 x 50 mg) PO BID 90 days miconazole nitrate 2% (Zeasorb AF) 1 appl topical BID HPI HPI Comments History of Present Illness Details Juan returns for follow-up. Last year, he had atrial fibrillation rapid rate. Subsequently, underwent SUKUMAR and cardioversion. He was then put on Multaq. However, no follow-up EKG was back in atrial flutter with controlled rate. Then Multaq was stopped. Otherwise, remains on anticoagulation. He had a [facility] emergency room visit few weeks back for atrial fibrillation rapid rate. Does not look like there were any medication changes. He states he just does not feel good but can not explain too much. He does not feel palpitations but just feels dizzy, unstable extra. Could be all due to atrial fibrillation and rapid rate. [facility] Medical History (Updated 07/01/23 @ 08:35 by Layne Kimball MD) Hyperkalemia CEBALLOS (dyspnea on exertion) COPD (chronic obstructive pulmonary disease) Hospital discharge follow-up Chest pain Atrial fibrillation with rapid ventricular response Atrial fibrillation with rapid ventricular response Hyperkalemia Atrial fibrillation and flutter Pulmonary hypertension Diastolic dysfunction Essential hypertension Atherosclerotic cardiovascular disease Annual physical exam Hypercholesterolemia Iron deficiency anemia Vitamin D deficiency Diabetic neuropathy Left renal stone Asthma Coronary artery disease Type 2 diabetes mellitus with hyperglycemia Surgical History History of lymph node excision History of inguinal hernia repair History of appendectomy Family History Father CVD (cardiovascular disease) Myocardial infarction Mother Hypertension Heart disease Diabetes CVD (cardiovascular disease) Sister No problems noted. Sister Diabetes Social History Household Members: Family Housing: House Do you presently have visiting nurse or other home services: No Alcohol intake: never Patient Tobacco Use Status: Former Tobacco user Tobacco use type: Cigarette e-Cigarette/Vaping Use: Never Used Second Hand Smoke Exposure: No service: No Current occupational status: retired Cognitive needs: No Hearing needs: Yes Vision needs: Yes Review of Systems Const Denies weakness ENT Denies dizziness Card Denies chest pain, Denies chest pain with activity, Denies syncope, Denies rapid heart rate, Denies pedal edema, Denies edema, Denies leg edema, Denies lightheadedness, Denies palpitations, Denies dyspnea, Denies dyspnea on exertion and Denies orthopnea Resp Denies cough, Denies dyspnea and Denies dyspnea on exertion GI Denies hematochezia and Denies change in stool character Musc Denies abnormal gait, Denies muscle cramps, Denies muscle weakness, Denies numbness, Denies radiating pain into limb and Denies tingling Neuro Denies abnormal gait, Denies dizziness, Denies syncope, Denies numbness, Denies tingling and Denies weakness Endo Denies palpitations Physical Exam Vital Signs: Last Vital Signs Pulse 79 08/12/23 11:02 BP 136/82 08/12/23 11:02 BMI result Body Mass Index 23.8 Const General: comfortable and no acute distress Orientation/consciousness: patient oriented x3 HEENT Other: Unremarkable Head: Yes normal to inspection Neck Neck: Yes normal visual inspection Chest Chest palpation & inspection: normal inspection of the chest Resp Auscultation: clear to auscultation bilaterally Cardio Palpation: normal PMI Heart sounds: S1 normal heart sound present, S2 normal heart sound present, no gallops, no murmurs and no rubs GI Palpation (GI): Soft to palpation Back/Spine/Pelvis Other: unremarkable Skin General skin exam: no rashes or lesions noted Neuro General: patient oriented x3 Extrem General: Yes normal to inspection Psych Mental Status: mental status grossly normal Assessment & Plan Assessment & Plan (1) Paroxysmal atrial fibrillation: Code(s): I48.0 - Paroxysmal atrial fibrillation Plan: Recent Holter shows atrial fibrillation with less than optimal rate control. Had ER visit to [facility] for atrial fibrillation rapid rate. Still has nonspecific symptoms. Can proceed with cardioversion next week. Discussed about the same with patient and he is agreeable. Previously failed Multaq. Hence start amiodarone. Remains on a small dose of beta-blockers. Continue Eliquis. He states he is taking and without interruption. (2) Atherosclerotic cardiovascular disease: Code(s): I25.10 - Atherosclerotic heart disease of [place] coronary artery without angina pectoris Plan: Cardiac [id number] post RCA and PDA stenting; midcircumflex 60% stenosis; [id number]-moderate disease. Myocardial perfusion imaging study from 05/2022 without any clear ischemic findings or prior infarction. Echocardiogram with LVEF 61% and severe diastolic dysfunction moderate pulmonary hypertension. Clinically, he has got absolutely no angina. Continue statins. Last LDL 70 mg/dL. (3) Diastolic dysfunction: Code(s): I51.89 - Other ill-defined heart diseases Plan: Last echocardiogram shows grade 3 diastolic dysfunction. No clear heart failure symptoms or signs. However, if he remains in atrial fibrillation throughout, then could precipitate heart failure. (4) Pulmonary hypertension: Code(s): I27.20 - Pulmonary hypertension, unspecified Plan: Could be from left heart dysfunction. At his age, no specific management. (5) Essential hypertension: Code(s): I10 - Essential (primary) hypertension Plan: Stable. No changes. Coding Level of Care Code Est Pt Level 4 (92171) Diagnoses Paroxysmal atrial fibrillation I48.0 Atherosclerotic cardiovascular disease I25.10 Diastolic dysfunction I51.89 Pulmonary hypertension I27.20 Essential hypertension I10
== END 2023-08-12 11:41 | disposition home or self-care (01) ==
PROVIDERS: PCP Internal Medicine; Visit Provider Internal Medicine
DX: I48.0 Paroxysmal atrial fibrillation (principal); I25.10 Atherosclerotic heart disease of native coronary artery without angina pectoris; I51.89 Other ill-defined heart diseases; I27.20 Pulmonary hypertension, unspecified; I10 Essential (primary) hypertension
CPT/HCPCS: 99214

== ENCOUNTER → 2023-08-12 10:17 | Outpatient (BNVA) | payer MEDICARE, SELFPAY | PROVIDERS: PCP Internal Medicine; Visit Provider Internal Medicine | DX: I48.0 Paroxysmal atrial fibrillation (principal); I11.9 Hypertensive heart disease without heart failure; I25.10 Atherosclerotic heart disease of native coronary artery without angina pectoris; I27.20 Pulmonary hypertension, unspecified; Z79.01 Long term (current) use of anticoagulants; Z79.899 Other long term (current) drug therapy | CPT/HCPCS: 99212 ==

== ENCOUNTER 2023-08-21 08:39 | Day surgery (SDC) | payer MEDICARE, SELFPAY ==
[2023-08-19 15:21] VITALS: BMI 23.8
--- NOTE | 2023-08-20 10:58 | HO.ANESPROP2 ---
Documented by User: Haley Bocanegra NP 08/20/23 11:01 HPI - Anesthesia Eval Consult details Narrative: 87yo M for Cardioversion Eliquis for afib s/p SUKUMAR/Cardioversion 02/2022 with TIVA PMFSH Active Problems Active Problems: All Active Problems (Updated 07/01/23 @ 08:35 by Layne Kimball MD) Tinea pedis (Acute) Syncopal episodes (Acute) COPD (chronic obstructive pulmonary disease) (Acute) CHF exacerbation (Acute) Paroxysmal atrial fibrillation (Acute) Arrhythmia (Acute) Chest pain (Acute) Iron deficiency anemia (Acute) Pulmonary hypertension (Acute) Diastolic dysfunction (Acute) Atherosclerotic cardiovascular disease (Acute) Essential hypertension (Acute) Hypercholesterolemia (Acute) Asthma (Acute) Coronary artery disease (Acute) Type 2 diabetes mellitus with hyperglycemia (Acute) Past Medical History Medical History (Updated 07/01/23 @ 08:35 by Layne Kimball MD) Hyperkalemia CEBALLOS (dyspnea on exertion) COPD (chronic obstructive pulmonary disease) Hospital discharge follow-up Chest pain Atrial fibrillation with rapid ventricular response Atrial fibrillation with rapid ventricular response Hyperkalemia Atrial fibrillation and flutter Pulmonary hypertension Diastolic dysfunction Essential hypertension Atherosclerotic cardiovascular disease Annual physical exam Hypercholesterolemia Iron deficiency anemia Vitamin D deficiency Diabetic neuropathy Left renal stone Asthma Coronary artery disease Type 2 diabetes mellitus with hyperglycemia Family History Family History Father CVD (cardiovascular disease) Myocardial infarction Mother Hypertension Heart disease Diabetes CVD (cardiovascular disease) Sister No problems noted. Sister Diabetes Family history of problems with anesthesia: No Surgical History Surgical History History of lymph node excision History of inguinal hernia repair History of appendectomy History of Problems with Anesthesia: No Social History Social History Household Members: Family Housing: House Do you presently have visiting nurse or other home services: No Alcohol intake: never Patient Tobacco Use Status: Former Tobacco user Tobacco use type: Cigarette Smoked in Last 30 Days: No e-Cigarette/Vaping Use: Never Used Second Hand Smoke Exposure: No Use of substances other than those prescribed or required for medical reasons: No Advance Directives: No Advance Directives Information Provided: Yes service: No Current occupational status: retired Cognitive needs: No Hearing needs: Yes Vision needs: Yes Meds Allergies Allergy/AdvReac Type Severity Reaction Status Date / Time lisinopril Allergy Unknown hyperkalemi Verified 08/21/23 09:28 a Home Medications Medication Instructions Recorded Confirmed Last Taken Type albuterol sulfate 90 mcg/actuation 2 puff inhalation Q6H PRN 10/06/20 08/19/23 Unknown History aerosol inhaler (ProAir HFA) Shortness Of Breath aspirin 81 mg tablet,delayed 81 mg PO DAILY 10/06/20 08/19/23 08/21/23 06:00 History release (Adult Low Dose Aspirin) cholecalciferol (vitamin D3) 25 25 mcg PO DAILY 05/21/23 08/19/23 08/21/23 06:00 History mcg (1,000 unit) capsule ferrous sulfate 325 mg (65 mg 325 mg PO DAILY 05/21/23 08/19/23 08/21/23 06:00 History iron) tablet Exam Exam Date and Time: August 20, 2023 1058 Height,Weight and Vital Signs: Height 5 ft 9 in Weight 73.028 kg Pertinent Lab Results Pertinent Lab Results: Laboratory Tests 05/27/23 06:26 WBC 9.1 Hgb 16.7 Hct 51.2 Plt Count 218 Sodium 141 Potassium 4.8 Chloride 105 Carbon Dioxide 30 H BUN 16 Creatinine 1.30 Narrative Narrative: Holter 06/2023 Conclusion: 1. Patient was monitored for total period of 2 days and 23 hours 2. Baseline was atrial fibrillation with average heart of 97 beats per minute with borderline in adequate rate control 3. Occasional wide complexes notice suggestive PVCs with episode of 1 fast why complex rate which could represent atrial fibrillation with aberrancy 4. No significant pauses noted 5. No patient reported symptoms Cardiac [id number] post RCA and PDA stenting; midcircumflex 60% stenosis; DHP-ligo-fv-moderate disease. Myocardial perfusion imaging study from 05/2022 without any clear ischemic findings or prior infarction. Echocardiogram with LVEF 61% and severe diastolic dysfunction moderate pulmonary hypertension. Assessment and Plan Assessment Anesthesia Assessment: Chart Reviewed Final Anesthetic Review Family History of Problems with Anesthesia: No History of Problems with Anesthesia: No Documented by User: Vin Samson MD 08/21/23 10:07 [facility] Past Medical History Medical History (Updated 07/01/23 @ 08:35 by Layne Kimball MD) Hyperkalemia CEBALLOS (dyspnea on exertion) COPD (chronic obstructive pulmonary disease) Hospital discharge follow-up Chest pain Atrial fibrillation with rapid ventricular response Atrial fibrillation with rapid ventricular response Hyperkalemia Atrial fibrillation and flutter Pulmonary hypertension Diastolic dysfunction Essential hypertension Atherosclerotic cardiovascular disease Annual physical exam Hypercholesterolemia Iron deficiency anemia Vitamin D deficiency Diabetic neuropathy Left renal stone Asthma Coronary artery disease Type 2 diabetes mellitus with hyperglycemia Family History Family History Father CVD (cardiovascular disease) Myocardial infarction Mother Hypertension Heart disease Diabetes CVD (cardiovascular disease) Sister No problems noted. Sister Diabetes Surgical History Surgical History History of lymph node excision History of inguinal hernia repair History of appendectomy Social History Social History Household Members: Family Housing: House Do you presently have visiting nurse or other home services: No Alcohol intake: never Patient Tobacco Use Status: Former Tobacco user Tobacco use type: Cigarette Smoked in Last 30 Days: No e-Cigarette/Vaping Use: Never Used Second Hand Smoke Exposure: No Use of substances other than those prescribed or required for medical reasons: No Advance Directives: No Advance Directives Information Provided: Yes service: No Current occupational status: retired Cognitive needs: No Hearing needs: Yes Vision needs: Yes Meds Allergies Allergy/AdvReac Type Severity Reaction Status Date / Time lisinopril Allergy Unknown hyperkalemi Verified 08/21/23 09:28 a Home Medications Medication Instructions Recorded Confirmed Last Taken Type albuterol sulfate 90 mcg/actuation 2 puff inhalation Q6H PRN 10/06/20 08/19/23 Unknown History aerosol inhaler (ProAir HFA) Shortness Of Breath aspirin 81 mg tablet,delayed 81 mg PO DAILY 10/06/20 08/19/23 08/21/23 06:00 History release (Adult Low Dose Aspirin) cholecalciferol (vitamin D3) 25 25 mcg PO DAILY 05/21/23 08/19/23 08/21/23 06:00 History mcg (1,000 unit) capsule ferrous sulfate 325 mg (65 mg 325 mg PO DAILY 05/21/23 08/19/23 08/21/23 06:00 History iron) tablet Exam Airway Mallampati Class: II TM Dist: >3cm Neck ROM: Full Loose/Missing/Broken Teeth: No Heart: [id number] Lungs: cta b/l Assessment and Plan Assessment Anesthesia Assessment: Anesthesia Plan Discussed Final Anesthetic Review NPO: Yes ASA Class: III Final Preanesthetic Review: No Changes in Pt Med Stat, Meds/Allgs Chart Reviewed, Consent Obtained/Reviewed and Anes Risks/Benef Reviewed Patient Risk: Intermediate Procedure Risk: Intermediate Assessment/Block/Sedation in SS: Assess/Block/Sedation-SS Anesthetic Plan Anesthetic Plan: GA and Agree w/ Assess. and Plan Disposition: Standard PACU
--- NOTE | 2023-08-21 | ECG_ITS ---
Test Reason : pre op Blood Pressure : / mmHG Vent. Rate : 070 BPM Atrial Rate : 000 BPM P-R Int : 000 ms QRS Dur : 098 ms QT Int : 436 ms P-R-T Axes : 000 056 049 degrees QTc Int : 470 ms Rhythm shows atrial flutter with variable block RSR' or QR pattern in V1 suggests right ventricular conduction delay Nonspecific ST abnormality Low voltage QRS Abnormal ECG When compared with ECG of 11-FEB-2022 13:22, aflutter has replaced Sinus rhythm Clinical Correlation Advised Referred By: Vin Samson Electronically Signed By:NIURKA SAMPSON MD
[2023-08-21 09:03] VITALS: BMI 23.8
[2023-08-21] MEDS: Lactated Ringers 1,000 ML 100 ML IVCONT (09:35)
[2023-08-21 09:48] LABS: Glucose, Whole Blood 99 mg/dL (60-115)
--- NOTE | 2023-08-21 10:11 | HO.CARDIVERS ---
Cardioversion Procedure Note Cardioversion Date of Procedure: 08/21/2023 Ordering Provider: Dr. Harley Performing Provider: Dr. Harley Indication for Procedure: Atrial fibrillation Pre-Op Diagnosis: Atrial fibrillation Post-Op Diagnosis: Sinus rhythm SUKUMAR findings (if SUKUMAR Performed): Not performed History: See office note Consent: Informed consent obtained. Procedure: After informed consent was obtained, patient was taken to the PACU. The patient was then positioned appropriately. The cardioversion pads were placed in anteroposterior position. Once under anesthesia, 120 joules of synchronized shock was administered. The rhythm converted from atrial fibrillation to sinus rhythm. Patient remained in sinus rhythm after the end of procedure. Complications: None. Impression: Successful cardioversion from atrial fibrillation to sinus rhythm. Recommendations: Continue amiodarone. Follow-up in clinic.
[2023-08-21 10:30] VITALS: BP 187/103; PULSE 71; RESP 19; O2SAT 100
--- NOTE | 2023-08-21 10:36 | MHC.SHP ---
Pre-Procedural Eval Section A Date of Service: 08/21/23 The patient is an INPATIENT: No Section B Chief Complaint: Paroxysmal atrial fibrillation Allergies: Allergies Allergy/AdvReac Type Severity Reaction Status Date / Time lisinopril Allergy Unknown hyperkalemi Verified 08/21/23 09:28 a Plan I have reviewed the history and physical and performed a pertinent physical examination on my patient. No changes have occurred unless specified. Time Spent With Patient Time: Total time managing care of this patient today ____ minutes.
--- NOTE | 2023-08-21 10:48 | ECG_ITS ---
Test Reason : rhythm check Blood Pressure : / mmHG Vent. Rate : 054 BPM Atrial Rate : 054 BPM P-R Int : 182 ms QRS Dur : 096 ms QT Int : 476 ms P-R-T Axes : 080 046 075 degrees QTc Int : 451 ms Sinus bradycardia with Premature atrial complexes Low voltage QRS RSR' or QR pattern in V1 suggests right ventricular conduction delay Abnormal ECG When compared with ECG of 21-AUG-2023 09:50, Sinus bradycardia has replaced aflutter Nonspecific T wave abnormality no longer evident in Inferior leads Nonspecific T wave abnormality no longer evident in Lateral leads Referred By: Tayo Harley Electronically Signed By:NIURKA SAMPSON MD
[2023-08-21 10:50] VITALS: BP 166/81; PULSE 54; RESP 18; TEMP 36.1; O2SAT 98
[2023-08-21 10:55] VITALS: BP 140/67; PULSE 54; RESP 21; O2SAT 99
[2023-08-21 11:00] VITALS: BP 110/79; PULSE 56; RESP 15; O2SAT 100
[2023-08-21 11:05] VITALS: BP 153/78; PULSE 58; RESP 16; TEMP 36.1; O2SAT 100
== END 2023-08-21 11:35 | disposition home or self-care (01) ==
PROVIDERS: PCP Internal Medicine; Visit Provider Internal Medicine
PROC: 5A2204Z Restoration of Cardiac Rhythm, Single (ICD-10-PCS; principal; 2023-08-21 10:30)
DX: I48.0 Paroxysmal atrial fibrillation (principal); I25.10 Atherosclerotic heart disease of native coronary artery without angina pectoris; I51.89 Other ill-defined heart diseases; I27.20 Pulmonary hypertension, unspecified; I10 Essential (primary) hypertension; J44.9 Chronic obstructive pulmonary disease, unspecified; E11.65 Type 2 diabetes mellitus with hyperglycemia; E11.40 Type 2 diabetes mellitus with diabetic neuropathy, unspecified; Z79.01 Long term (current) use of anticoagulants; Z79.82 Long term (current) use of aspirin; Z79.899 Other long term (current) drug therapy; Z88.8 Allergy status to other drugs, medicaments and biological substances; Z87.891 Personal history of nicotine dependence
CPT/HCPCS: 82947; 92960; 93005; J0330; J0461; J2371

== ENCOUNTER → 2023-08-21 08:39 | Outpatient (BNV) | payer MEDICARE, SELFPAY | PROVIDERS: PCP Internal Medicine; Visit Provider Internal Medicine | DX: I48.0 Paroxysmal atrial fibrillation (principal) | CPT/HCPCS: 92960 ==

== ENCOUNTER → 2023-09-04 07:28 | Outpatient (REF) | payer MEDICARE, SELFPAY ==
--- NOTE | 2023-09-04 07:31 | HM_ITS ---
Conclusion: 1. Patient was monitored for total period of 3 days 2. Baseline was normal sinus rhythm with average heart of 56 beats per minute 3. Frequent sinus bradycardia noted with 70% of time heart rate below 60 beats per minute with no significant pauses 4. Occasional PACs noted 5. No patient reported events MTDD
== END ==
LOC: HO.CARD 07:28
PROVIDERS: PCP Internal Medicine; Visit Provider Internal Medicine
DX: I48.0 Paroxysmal atrial fibrillation (principal); I49.9 Cardiac arrhythmia, unspecified
CPT/HCPCS: 93242

== ENCOUNTER → 2023-09-04 07:31 | Outpatient (BNV) | payer MEDICARE, SELFPAY | PROVIDERS: PCP Internal Medicine; Visit Provider Internal Medicine Cardiovascular Disease | DX: R00.1 Bradycardia, unspecified (principal) | CPT/HCPCS: 93244 ==

== ENCOUNTER 2023-10-02 08:32 | Outpatient (AMB) | payer MEDICARE, SELFPAY ==
[2023-10-02 08:43] VITALS: BP 140/62; PULSE 54; BMI 24.2
--- NOTE | 2023-10-02 08:43 | MHC.OFFVIS ---
Intake Vital Signs 10/02/23 08:43 Height 5 ft 9 in Weight 163 lb 9.328 oz BMI 24.2 BP 140/62 H Blood Pressure Location Lt brachial Position Sitting Pulse 54 Intake Visit Reasons: follow up holter Allergies lisinopril Allergy (Unknown, Verified 10/02/23 08:44) hyperkalemia Medication List - Last Reconciled 10/02/23 by Tayo Harley MD albuterol sulfate 90 mcg/actuation (ProAir HFA) 2 puffs inhalation Q6H PRN amiodarone 200 mg PO DIRECTED 90 days apixaban (Eliquis) 5 mg PO BID 90 days aspirin (Adult Low Dose Aspirin) 81 mg PO DAILY atorvastatin 40 mg PO DAILY cholecalciferol (vitamin D3) 25 mcg PO DAILY clotrimazole 1% 1 appl topical BID 4 weeks ferrous sulfate 325 mg PO DAILY metoprolol tartrate 25 mg (1/2 x 50 mg) PO BID 90 days miconazole nitrate 2% (Zeasorb AF) 1 appl topical BID HPI HPI Comments History of Present Illness Details Juan returns for follow-up. In 2021, he had atrial fibrillation rapid rate. Subsequently, underwent SUKUMAR and cardioversion. He was then put on Multaq. He was in sinus for a while but then went back into atrial fibrillation and had symptoms for the same. Hence had one further cardioversion in August 2023. Currently, he is on amiodarone. For the most part, he feels fine but he gets occasionally dizzy. One episode of nonexertional chest pain spontaneously resolved. Thinks he is having a cold/respiratory infection. Otherwise, feels good. [facility] Medical History (Updated 07/01/23 @ 08:35 by Layne Kimball MD) Hyperkalemia CEBALLOS (dyspnea on exertion) COPD (chronic obstructive pulmonary disease) Hospital discharge follow-up Chest pain Atrial fibrillation with rapid ventricular response Atrial fibrillation with rapid ventricular response Hyperkalemia Atrial fibrillation and flutter Pulmonary hypertension Diastolic dysfunction Essential hypertension Atherosclerotic cardiovascular disease Annual physical exam Hypercholesterolemia Iron deficiency anemia Vitamin D deficiency Diabetic neuropathy Left renal stone Asthma Coronary artery disease Type 2 diabetes mellitus with hyperglycemia Surgical History History of lymph node excision History of inguinal hernia repair History of appendectomy Family History Father CVD (cardiovascular disease) Myocardial infarction Mother Hypertension Heart disease Diabetes CVD (cardiovascular disease) Sister No problems noted. Sister Diabetes Social History Household Members: Family Housing: House Do you presently have visiting nurse or other home services: No Alcohol intake: never Patient Tobacco Use Status: Former Tobacco user Tobacco use type: Cigarette e-Cigarette/Vaping Use: Never Used Second Hand Smoke Exposure: No service: No Current occupational status: retired Cognitive needs: No Hearing needs: Yes Vision needs: Yes Review of Systems ENT Reports dizziness Card Denies chest pain, Denies chest pain at rest, Denies chest pain with activity, Denies rapid heart rate, Denies pedal edema, Denies edema, Denies leg edema, Denies lightheadedness, Denies palpitations, Denies dyspnea, Denies dyspnea on exertion and Denies orthopnea Resp Denies cough, Denies dyspnea and Denies dyspnea on exertion GI Denies hematochezia and Denies change in stool character Musc Denies abnormal gait, Reports limited range of motion, Reports muscle cramps, Denies muscle weakness, Denies numbness, Denies radiating pain into limb, Denies stiffness and Denies tingling Neuro Denies abnormal gait, Reports dizziness, Denies numbness and Denies tingling Endo Denies palpitations Physical Exam Vital Signs: Last Vital Signs Pulse 54 10/02/23 08:43 BP 140/62 H 10/02/23 08:43 BMI result Body Mass Index 24.2 Const General: comfortable and no acute distress Orientation/consciousness: patient oriented x3 HEENT Other: Unremarkable Head: Yes normal to inspection Neck Neck: Yes normal visual inspection Chest Chest palpation & inspection: normal inspection of the chest Resp Auscultation: wheezes Cardio Palpation: normal PMI Heart sounds: S1 normal heart sound present, S2 normal heart sound present, no gallops, no murmurs and no rubs GI Palpation (GI): Soft to palpation Back/Spine/Pelvis Other: unremarkable Skin General skin exam: no rashes or lesions noted Neuro General: patient oriented x3 Extrem General: Yes normal to inspection Psych Mental Status: mental status grossly normal Office Procedures EKG Details: EKG with sinus, 54/min, no significant ST-T changes and otherwise unremarkable[place] [id number], Complete Assessment & Plan Assessment & Plan (1) Paroxysmal atrial fibrillation: Code(s): I48.0 - Paroxysmal atrial fibrillation Plan: Status post cardioversion x2. In sinus rhythm by EKG today. Holter also shows sinus rhythm throughout with average rate of 56/Min. Continue amiodarone. Due to the question of dizziness, we can cut back on the beta-slick dosing. Continue anticoagulation. (2) Atherosclerotic cardiovascular disease: Code(s): I25.10 - Atherosclerotic heart disease of [place] coronary artery without angina pectoris Plan: Cardiac [id number] post RCA and PDA stenting; midcircumflex 60% stenosis; JYY-[id number]-qw-moderate disease. Myocardial perfusion imaging study from 05/2022 without any clear ischemic findings or prior infarction. Echocardiogram with LVEF 61% and severe diastolic dysfunction moderate pulmonary hypertension. Continue beta-blockers, statins. Last LDL 70 mg/dL. (3) Diastolic dysfunction: Code(s): I51.89 - Other ill-defined heart diseases Plan: Last echocardiogram shows grade 3 diastolic dysfunction. No clear heart failure symptoms or signs. May use diuretics if necessary. (4) Pulmonary hypertension: Code(s): I27.20 - Pulmonary hypertension, unspecified Plan: Could be from left heart dysfunction. At his age, no specific management. (5) Essential hypertension: Code(s): I10 - Essential (primary) hypertension Plan: Stable. No changes. Medications: New metoprolol succinate ER (Toprol XL) 25 mg PO DAILY 90 tabs 3RF Discontinued metoprolol tartrate Discontinued Reason: Doctor's Order 25 mg (1/2 x 50 mg) PO BID 90 days 180 tabs 3RF Coding Level of Care Code Est Pt Level 4 (15806) Diagnoses Paroxysmal atrial fibrillation I48.0 Atherosclerotic cardiovascular disease I25.10 Diastolic dysfunction I51.89 Pulmonary hypertension I27.20 Essential hypertension I10 CPT Codes EKG - CPT: 40047-[id number], Complete ([id number])
== END 2023-10-02 09:04 | disposition home or self-care (01) ==
PROVIDERS: PCP Internal Medicine; Visit Provider Internal Medicine
DX: I48.0 Paroxysmal atrial fibrillation (principal); I25.10 Atherosclerotic heart disease of native coronary artery without angina pectoris; I51.89 Other ill-defined heart diseases; I27.20 Pulmonary hypertension, unspecified; I10 Essential (primary) hypertension
CPT/HCPCS: 93010; 99214

== ENCOUNTER → 2023-10-02 08:32 | Outpatient (BNVA) | payer MEDICARE, SELFPAY | PROVIDERS: PCP Internal Medicine; Visit Provider Internal Medicine | DX: I48.0 Paroxysmal atrial fibrillation (principal); I25.10 Atherosclerotic heart disease of native coronary artery without angina pectoris; I10 Essential (primary) hypertension; I51.89 Other ill-defined heart diseases; I27.20 Pulmonary hypertension, unspecified; Z98.890 Other specified postprocedural states | CPT/HCPCS: 93005; 99212 ==

== ENCOUNTER 2024-01-01 08:22 | Outpatient (AMB) | payer MEDICARE, SELFPAY ==
[2024-01-01 08:38] VITALS: BP 118/68; PULSE 49; O2SAT 98; BMI 25.0
--- NOTE | 2024-01-01 08:38 | MHC.PC.OV ---
Vital Signs 01/01/24 08:38 Height 5 ft 9 in Weight 169 lb 0.8 oz BMI 25.0 BP 118/68 Blood Pressure Location Lt brachial Position Sitting Pulse 49 L Pulse Source Pulse Oximeter Pulse Oximetry (%) 98 Oxygen Delivery Method Room Air Intake Visit Reasons: A fib Allergies lisinopril Allergy (Unknown, Verified 01/01/24 08:40) hyperkalemia Tobacco use date assessed: 01/01/24 Fall risk assessment: No Falls in past year Last assessed Fall Risk: 01/01/24 Dental Screening Dental Screen Date: 01/01/24 Did you have a dental visit in the last 12 months?: No Did you have a dental problem in the last 6 months where you did not have access to dental care?: No HPI A fib HPI Details 88-year-old male with diabetes mellitus controlled coronary artery disease hypertension hypercholesterolemia atrial fibrillation(2021 cardioversion placed on Multaq presently on amiodarone) COPD last seen in June 2023. Patient is here for follow-up. Review of the notes September 2023 was seen by Cardiology for follow-up patient has complained of dizziness and had a decrease in beta slick. Holter monitor done September 2023 0 atrial flutter burden no pauses patient did have cardioversion done August 2023 after an ER visit for rapid ventricular rate [facility] Medical History (Updated 01/01/24 @ 09:24 by Layne Kimball MD) Hyperkalemia CEBALLOS (dyspnea on exertion) COPD (chronic obstructive pulmonary disease) Hospital discharge follow-up Chest pain Atrial fibrillation with rapid ventricular response Atrial fibrillation with rapid ventricular response Hyperkalemia Atrial fibrillation and flutter Pulmonary hypertension Diastolic dysfunction Essential hypertension Atherosclerotic cardiovascular disease Annual physical exam Hypercholesterolemia Iron deficiency anemia Vitamin D deficiency Diabetic neuropathy Left renal stone Asthma Coronary artery disease Type 2 diabetes mellitus with hyperglycemia Surgical History History of lymph node excision History of inguinal hernia repair History of appendectomy Family History Father CVD (cardiovascular disease) Myocardial infarction Mother Hypertension Heart disease Diabetes CVD (cardiovascular disease) Sister No problems noted. Sister Diabetes Social History Household Members: Family Housing: House Do you presently have visiting nurse or other home services: No Alcohol intake: never Patient Tobacco Use Status: Former Tobacco user Tobacco use type: Cigarette e-Cigarette/Vaping Use: Never Used Second Hand Smoke Exposure: No service: No Current occupational status: retired Cognitive needs: No Hearing needs: Yes Vision needs: Yes Questionnaire Thrive Questionnaire Date Thrive assessed: 01/29/23 AUDIT C Alcohol Use Questionnaire (AUDIT-C) 1. How often do you have a drink containing alcohol?: Never Total Score: 0 Score Reviewed/Action Taken: No ALEXANDRA-7 AMB Questionnaire ALEXANDRA-7 Date ALEXANDRA - 7 assessed: 01/29/23 Source: Developed by Drs. Adam Ennis, Mel Burch, Fortunato Richardson and colleagues, with an educational tamara from [employer]. Physical exam (Primary Care) Vital Signs: Last Vital Signs Pulse 49 L 01/01/24 08:38 BP 118/68 01/01/24 08:38 Pulse Ox 98 01/01/24 08:38 Oxygen Delivery Method Room Air 01/01/24 08:38 BMI result Body Mass Index 25.0 Tobacco/Smoking Status: Tobacco use Status Tobacco use date assessed 01/01/24 01/01/24 08:42 Patient Tobacco Use Status Former Tobacco user 01/01/24 08:42 Tobacco use type Cigarette 01/01/24 08:42 e-Cigarette/Vaping Use Never Used 01/01/24 08:42 Thrive Assessment: Date of Thrive Assessment Date Thrive assessed 01/29/23 01/01/24 08:42 Const General: alert; No acute distress Eyes Conjunctivae: conjunctivae normal Resp Auscultation: clear to auscultation bilaterally Cardio Rate: regular rate Rhythm: regular rhythm GI Inspection: Yes normal to inspection Extrem General: Yes normal to inspection and No edema Assessment and Plan Assessment & Plan (1) Type 2 diabetes mellitus with hyperglycemia: Comment: Dr. Franklin Code(s): E11.65 - Type 2 diabetes mellitus with hyperglycemia Qualifiers: Diabetes mellitus alf insulin use: without dental technology advisor use Qualified Code(s): E11.65 - Type 2 diabetes mellitus with hyperglycemia Plan: Decrease the amount of carbohydrate intake, pasta, bread, rice and potatoes are all sugar and that is aside from all the sweet stuff, remember that fruits are good but they are Sweet also. Hemoglobin A1c goal of less than 7.0. Patient is diet controlled (2) Coronary artery disease: Comment: PTCA 1991 and 1998 stent placement April [address] Alvarado echo ejection fraction 60 65% grade 2 diastolic dysfunction March 2017, September 2017, November 2017 positive stress test echo December 2019 normal ejection fraction, May 2022 myocardial perfusion scan or Code(s): I25.10 - Atherosclerotic heart disease of [place] coronary artery without angina pectoris Qualifiers: Coronary Disease-Associated Artery/Lesion type: [place] artery [place] vs. transplanted heart: [place] heart Associated angina: without angina Qualified Code(s): I25.10 - Atherosclerotic heart disease of [place] coronary artery without angina pectoris Plan: Control the cholesterol, weight, blood pressure, diabetes continue with anticoagulation (3) Hypercholesterolemia: Code(s): E78.00 - Pure hypercholesterolemia, unspecified Plan: Avoid fried foods, chicken skin, eggs, butter margarine, pastries and meat. Be it pork or beef they have a lot of cholesterol LDL goal of less than 70 and triglyceride of (4) Essential hypertension: Code(s): I10 - Essential (primary) hypertension Plan: 150 May 2023 last blood work Continue with blood pressure medication. Decrease salt intake and exercise presently on metoprolol 25 mg once a day (5) Paroxysmal atrial fibrillation: Code(s): I48.0 - Paroxysmal atrial fibrillation Plan: Continue with anticoagulation and amiodarone patient had cardioversion ast year (6) COPD (chronic obstructive pulmonary disease): Comment: DUE TO HIS PAST HISTORY OF SMOKING HE DOES HAVE SOME DEGREE OF CHRONIC OBSTRUCTIVE PULMONARY DISEASE WHICH IS NOT ACTIVE AT PRESENT. PLAN IS TO DO PULMONARY FUNCTION TEST AGAIN, AND THEN DECIDE IF HE WOULD NEED SOME MAINTENANCE REGIMEN TO IMPROVE HIS BREATHING. PATIENT WAS EDUCATED ABOUT ASTHMA, AND COPD. Code(s): J44.9 - Chronic obstructive pulmonary disease, unspecified Plan: Continue with inhaler as needed (7) Impacted cerumen of both ears: Code(s): H61.23 - Impacted cerumen, bilateral Plan: will try own but advised if problem will need ear flushing Orders: Orders Comprehensive Met. Panel Today E11.65 - Type 2 diabetes mellitus with hyperglycemia Free T4 (Free Thyroxine) Today E11.65 - Type 2 diabetes mellitus with hyperglycemia Lipid Panel Today E11.65 - Type 2 diabetes mellitus with hyperglycemia, E78.00 - Pure hypercholesterolemia, unspecified Vitamin B12 and Folate Today E11.65 - Type 2 diabetes mellitus with hyperglycemia Microalbumin, Random (w Creat) Today E11.65 - Type 2 diabetes mellitus with hyperglycemia Complete Blood Count Auto Diff Today E11.65 - Type 2 diabetes mellitus with hyperglycemia Thyroid Stimulating Hormone Today E11.65 - Type 2 diabetes mellitus with hyperglycemia Creatinine Urine Today E11.65 - Type 2 diabetes mellitus with hyperglycemia Medications: New budesonide 180 mcg/actuation (Pulmicort Flexhaler) 1 inh inhalation BID 3 ea 3RF J44.9 - Chronic obstructive pulmonary disease, unspecified Coding Level of Care Code Est Pt Level 4 (51131) Diagnoses Type 2 diabetes mellitus with hyperglycemia, without long-term current use of insulin E11.65 Diabetes mellitus dental technology advisor insulin use: without dental technology advisor use Coronary artery disease involving [place] coronary artery of [place] heart without angina pectoris I25.10 Coronary Disease-Associated Artery/Lesion type: [place] artery [place] vs. transplanted heart: [place] heart Associated angina: without angina Hypercholesterolemia E78.00 Essential hypertension I10 Paroxysmal atrial fibrillation I48.0 COPD (chronic obstructive pulmonary disease) J44.9 Impacted cerumen of both ears H61.23
== END 2024-01-01 09:28 | disposition home or self-care (01) ==
PROVIDERS: PCP Internal Medicine; Visit Provider Internal Medicine
DX: I48.0 Paroxysmal atrial fibrillation (principal); E11.65 Type 2 diabetes mellitus with hyperglycemia; J44.9 Chronic obstructive pulmonary disease, unspecified; I25.10 Atherosclerotic heart disease of native coronary artery without angina pectoris; E78.00 Pure hypercholesterolemia, unspecified; I10 Essential (primary) hypertension; H61.23 Impacted cerumen, bilateral
CPT/HCPCS: 99214

== ENCOUNTER 2024-01-26 08:29 | Outpatient (AMB) | payer MEDICARE, SELFPAY ==
[2024-01-26 08:34] VITALS: BP 160/80; PULSE 97; BMI 24.8
--- NOTE | 2024-01-26 08:34 | MHC.OFFVIS ---
Intake Vital Signs 01/26/24 08:34 Height 5 ft 9 in Weight 167 lb 15.876 oz BMI 24.8 BP 160/80 H Blood Pressure Location Lt brachial Position Sitting Pulse 97 Intake Visit Reasons: follow-up Intake Note: follow up w/ EKG Hearing Screener Required: No Accompanied by: Self / Same As Patient Allergies lisinopril Allergy (Unknown, Verified 01/26/24 08:35) hyperkalemia Medication List - Last Reconciled 01/26/24 by Tayo Harley MD albuterol sulfate 90 mcg/actuation (ProAir HFA) 2 puffs inhalation Q6H PRN amiodarone 200 mg PO DIRECTED 90 days apixaban (Eliquis) 5 mg PO BID 90 days aspirin (Adult Low Dose Aspirin) 81 mg PO DAILY atorvastatin 40 mg PO DAILY beclomethasone dipropionate 80 mcg/actuation (Qvar RediHaler) 1 inh inhalation Q12H cholecalciferol (vitamin D3) 25 mcg PO DAILY clotrimazole 1% 1 appl topical BID 4 weeks ferrous sulfate 325 mg PO DAILY metoprolol succinate ER (Toprol XL) 25 mg PO DAILY miconazole nitrate 2% (Zeasorb AF) 1 appl topical BID HPI HPI Comments History of Present Illness Details Juan returns for follow-up. In 2021, he had atrial fibrillation rapid rate. Subsequently, underwent SUKUMAR and cardioversion. He was then put on Multaq. He was in sinus for a while but then went back into atrial fibrillation and had symptoms for the same. Hence had one further cardioversion in August 2023. Currently, he is on amiodarone. Again, some shortness of breath with activity. Otherwise, he states he is feeling fine. By EKG, he is back in atrial fibrillation. This is in spite of being on amiodarone. [facility] Medical History (Updated 01/01/24 @ 09:24 by Layne Kimball MD) Hyperkalemia CEBALLOS (dyspnea on exertion) COPD (chronic obstructive pulmonary disease) Hospital discharge follow-up Chest pain Atrial fibrillation with rapid ventricular response Atrial fibrillation with rapid ventricular response Hyperkalemia Atrial fibrillation and flutter Pulmonary hypertension Diastolic dysfunction Essential hypertension Atherosclerotic cardiovascular disease Annual physical exam Hypercholesterolemia Iron deficiency anemia Vitamin D deficiency Diabetic neuropathy Left renal stone Asthma Coronary artery disease Type 2 diabetes mellitus with hyperglycemia Surgical History History of lymph node excision History of inguinal hernia repair History of appendectomy Family History Father CVD (cardiovascular disease) Myocardial infarction Mother Hypertension Heart disease Diabetes CVD (cardiovascular disease) Sister No problems noted. Sister Diabetes Social History Household Members: Family Housing: House Do you presently have visiting nurse or other home services: No Alcohol intake: never Patient Tobacco Use Status: Former Tobacco user Tobacco use type: Cigarette e-Cigarette/Vaping Use: Never Used Second Hand Smoke Exposure: No service: No Current occupational status: retired Cognitive needs: No Hearing needs: Yes Vision needs: Yes Review of Systems Const Denies weakness ENT Denies dizziness Card Denies chest pain, Denies chest pain with activity, Denies syncope, Denies rapid heart rate, Denies pedal edema, Denies edema, Denies leg edema, Denies lightheadedness, Denies palpitations, Denies dyspnea, Denies dyspnea on exertion and Denies orthopnea Resp Denies cough, Denies dyspnea and Denies dyspnea on exertion GI Denies hematochezia and Denies change in stool character Musc Denies abnormal gait, Denies muscle cramps, Denies muscle weakness, Denies numbness, Denies radiating pain into limb and Denies tingling Neuro Denies abnormal gait, Denies dizziness, Denies syncope, Denies numbness, Denies tingling and Denies weakness Endo Denies palpitations Physical Exam Vital Signs: Last Vital Signs Pulse 97 01/26/24 08:34 BP 160/80 H 01/26/24 08:34 BMI result Body Mass Index 24.8 Const General: comfortable and no acute distress Orientation/consciousness: patient oriented x3 HEENT Other: Unremarkable Head: Yes normal to inspection Neck Neck: Yes normal visual inspection Chest Chest palpation & inspection: normal inspection of the chest Resp Auscultation: rhonchi Cardio Palpation: normal PMI Heart sounds: S1 normal heart sound present, S2 normal heart sound present, no gallops, no murmurs and no rubs GI Palpation (GI): Soft to palpation Back/Spine/Pelvis Other: unremarkable Skin General skin exam: no rashes or lesions noted Neuro General: patient oriented x3 Extrem General: Yes normal to inspection Psych Mental Status: mental status grossly normal Office Procedures EKG Details: EKG with either atrial flutter or fibrillation at a rate of 97/Min. Nonspecific ST-T changes. [id number], Complete Assessment & Plan Assessment & Plan (1) Paroxysmal atrial fibrillation: Code(s): I48.0 - Paroxysmal atrial fibrillation Plan: Status post cardioversion x2. He is still back in atrial fibrillation in spite of the above. Especially while being on amiodarone. Hence may resort to just rate control therapy. We will increase the beta-slick dosing. If necessary, consider adding digoxin. Stop amiodarone. Med changes discussed with patient. Continue anticoagulation. Get a Holter/echocardiogram. (2) Atherosclerotic cardiovascular disease: Code(s): I25.10 - Atherosclerotic heart disease of [place] coronary artery without angina pectoris Plan: Cardiac [id number] post RCA and PDA stenting; midcircumflex 60% stenosis; [id number]-mb-moderate disease. Myocardial perfusion imaging study from 05/2022 without any clear ischemic findings or prior infarction. Echocardiogram with LVEF 61% and severe diastolic dysfunction moderate pulmonary hypertension. Continue beta-blockers, statins. Last LDL 70 mg/dL. (3) Diastolic dysfunction: Code(s): I51.89 - Other ill-defined heart diseases Plan: Last echocardiogram shows grade 3 diastolic dysfunction. Probably going to get worse if he remains in atrial fibrillation but not much of a choice. As needed, we will use diuretics. (4) Pulmonary hypertension: Code(s): I27.20 - Pulmonary hypertension, unspecified Plan: Could be from left heart dysfunction. At his age, no specific management. (5) Essential hypertension: Code(s): I10 - Essential (primary) hypertension Plan: Blood pressure seems high today. Increase in beta-blockers may help. Will need to be followed. Orders: Orders ECG 3 day holter monitor Today I48.0 - Paroxysmal atrial fibrillation [place] echo transthoracic complete Today I25.10 - Atherosclerotic heart disease of [place] coronary artery without angina pectoris, I48.0 - Paroxysmal atrial fibrillation Medications: New metoprolol succinate ER (Toprol XL) 50 mg PO DAILY 90 tabs 3RF Discontinued amiodarone Take 1 tab (200mg) once a day. Discontinued Reason: Doctor's Order 200 mg PO DIRECTED 90 days 90 tabs 3RF metoprolol succinate ER (Toprol XL) Discontinued Reason: Doctor's Order 25 mg PO DAILY 90 tabs 3RF Coding Level of Care Code Est Pt Level 4 (79351) Diagnoses Paroxysmal atrial fibrillation I48.0 Atherosclerotic cardiovascular disease I25.10 Diastolic dysfunction I51.89 Pulmonary hypertension I27.20 Essential hypertension I10 CPT Codes EKG - CPT: 87315-[id number], Complete ([id number])
== END 2024-01-26 08:56 | disposition home or self-care (01) ==
PROVIDERS: PCP Internal Medicine; Visit Provider Internal Medicine
DX: I48.0 Paroxysmal atrial fibrillation (principal); I25.10 Atherosclerotic heart disease of native coronary artery without angina pectoris; I51.89 Other ill-defined heart diseases; I27.20 Pulmonary hypertension, unspecified; I10 Essential (primary) hypertension
CPT/HCPCS: 93010; 99214

== ENCOUNTER → 2024-01-26 08:29 | Outpatient (BNVA) | payer MEDICARE, SELFPAY | PROVIDERS: PCP Internal Medicine; Visit Provider Internal Medicine | DX: I48.0 Paroxysmal atrial fibrillation (principal); I25.10 Atherosclerotic heart disease of native coronary artery without angina pectoris; I51.89 Other ill-defined heart diseases; I27.20 Pulmonary hypertension, unspecified; I10 Essential (primary) hypertension | CPT/HCPCS: 93005; 99212 ==

== ENCOUNTER 2024-03-31 07:45 | Outpatient (REF) | payer MEDICARE, SELFPAY ==
[2024-03-31 07:55] LABS: MANUAL DIFF FLAG NO
[2024-03-31 08:03] LABS: Basophils Absolute Auto 0.1 X10*3/uL (0.0-0.2); Basophils Percent Auto 0.6 % (0-2); Eosinophils Absolute Auto 0.2 X10*3/uL (0.0-0.4); Eosinophils Percent Auto 1.6 % (0-4); Hematocrit 48.6 % (42.0-52.0); Hemoglobin 16.2 g/dl (14.0-18.0); Imm Gran Abs Auto 0.05 X10*3/uL (0.00-0.03); Imm Gran Pct Auto 0.5 % (0.0-0.4); Lymphocytes Absolute Auto 2.7 X10*3/uL (1.2-4.9); Lymphocytes Percent Auto 27.2 % (20-40); Mean Corpuscular HGB Conc 33.3 g/dl (31.0-36.0); Mean Corpuscular Hemoglobin 29.9 pg (27.0-33.0); Mean Corpuscular Volume 89.7 fL (80.0-98.0); Mean Platelet Volume 10.3 fL (9.4-12.4); Monocytes Absolute Auto 0.9 X10*3/uL (0.1-1.2); Neutrophils Absolute Auto 6.1 x10*3/uL (2.0-8.3); Neutrophils Percent Auto 61.1 % (45-73); Platelet Count 236 X10*3/uL (160-400); Red Blood Count 5.42 X10*6/uL (4.60-5.80); Red Cell Distribution Width 13.5 % (11.0-16.0)
[2024-03-31 08:46] LABS: Alanine Aminotransferase 17 U/L (0-40); Albumin Level 4.4 g/dL (3.5-5.0); Alkaline Phosphatase 98 U/L (39-117); Anion Gap 14 (12-20); Aspartate Amino Transferase 24 U/L (5-37); Bilirubin Total 1.3 mg/dL (0.0-1.0); Blood Urea Nitrogen 20 mg/dL (9-16); Calcium 9.8 mg/dL (8.4-10.2); Carbon Dioxide 26 mmol/L (22-29); Chloride 107 mmol/L (96-108); Cholesterol 157 mg/dL (<200); Estimated Glomerular Filt Rate 43; Glucose Random 110 mg/dL (60-115); HDL Cholesterol 48 mg/dL (>40); LDL Cholesterol Calculated 87 mg/dL (<100); Potassium 4.1 mmol/L (3.3-5.1); Sodium 143 mmol/L (135-145); Total Protein 7.2 g/dL (6.5-8.0); Triglycerides 110 mg/dL (<150)
[2024-03-31 09:15] LABS: Free T4 (Free Thyroxine) 1.09 ng/dL (0.71-1.85); Thyroid Stimulating Hormone 5.55 uIU/mL (0.32-4.0)
[2024-03-31 09:40] LABS: Folate 7.3 ng/mL (> or = 4.0); Vitamin B12 881 pg/mL (200-900)
[2024-03-31 09:55] LABS: Microalbum/Creatinine Ratio Ur 35.3 ug/mg cr (<30)
== END 2024-03-31 07:46 | disposition home or self-care (01) ==
LOC: HO.LAB 07:45
PROVIDERS: PCP Internal Medicine; Visit Provider Internal Medicine
DX: E78.00 Pure hypercholesterolemia, unspecified (principal); E11.65 Type 2 diabetes mellitus with hyperglycemia
CPT/HCPCS: 36415; 80053; 80061; 82043; 82570; 82607; 82746; 84439; 84443; 85025

== ENCOUNTER 2024-04-09 09:33 | Outpatient (AMB) | payer MEDICARE, SELFPAY ==
[2024-04-09 09:54] VITALS: BP 132/76; PULSE 86; O2SAT 97; BMI 24.8
--- NOTE | 2024-04-09 09:54 | A.OFFPC_ITS ---
Vital Signs 04/09/24 09:54 Height 5 ft 9 in Weight 168 lb BMI 24.8 BP 132/76 Blood Pressure Location Lt brachial Position Sitting Pulse 86 Pulse Source Pulse Oximeter Pulse Oximetry (%) 97 Oxygen Delivery Method Room Air Intake Visit Reasons: Coronary artery disease Allergies lisinopril Allergy (Unknown, Verified 04/09/24 09:55) hyperkalemia Medication List - Last Reconciled 04/09/24 by Layne Kimball MD albuterol sulfate 90 mcg/actuation (ProAir HFA) 2 puffs inhalation Q6H PRN apixaban (Eliquis) 5 mg PO BID 90 days aspirin (Adult Low Dose Aspirin) 81 mg PO DAILY atorvastatin 40 mg PO DAILY beclomethasone dipropionate 80 mcg/actuation (Qvar RediHaler) 1 inh inhalation Q12H cholecalciferol (vitamin D3) 25 mcg PO DAILY clotrimazole 1% 1 appl topical BID 4 weeks ferrous sulfate 325 mg PO DAILY metoprolol succinate ER (Toprol XL) 50 mg PO DAILY miconazole nitrate 2% (Zeasorb AF) 1 appl topical BID Tobacco use date assessed: 01/01/24 Fall risk assessment: No Falls in past year Last assessed Fall Risk: 04/09/24 Dental Screening Dental Screen Date: 01/01/24 HPI Coronary artery disease HPI Details 88-year-old male with diabetes mellitus coronary artery disease hypertension hypercholesterolemia atrial fibrillation COPD coming in for follow- up. Last seen in 12/23/2023. Patient has seen Cardiology in January chronic atrial fibrillation advised increase in beta slick advised to stop amiodarone. CAKE eating a lot with butter. [facility] Medical History (Updated 01/01/24 @ 09:24 by Layne Kimball MD) Hyperkalemia CEBALLOS (dyspnea on exertion) COPD (chronic obstructive pulmonary disease) Hospital discharge follow-up Chest pain Atrial fibrillation with rapid ventricular response Atrial fibrillation with rapid ventricular response Hyperkalemia Atrial fibrillation and flutter Pulmonary hypertension Diastolic dysfunction Essential hypertension Atherosclerotic cardiovascular disease Annual physical exam Hypercholesterolemia Iron deficiency anemia Vitamin D deficiency Diabetic neuropathy Left renal stone Asthma Coronary artery disease Type 2 diabetes mellitus with hyperglycemia Surgical History History of lymph node excision History of inguinal hernia repair History of appendectomy Family History Father CVD (cardiovascular disease) Myocardial infarction Mother Hypertension Heart disease Diabetes CVD (cardiovascular disease) Sister No problems noted. Sister Diabetes Social History Household Members: Family Housing: House Do you presently have visiting nurse or other home services: No Alcohol intake: never Patient Tobacco Use Status: Former Tobacco user Tobacco use type: Cigarette e-Cigarette/Vaping Use: Never Used Second Hand Smoke Exposure: No service: No Current occupational status: retired Cognitive needs: No Hearing needs: Yes Vision needs: Yes Questionnaire PHQ-9 Over the last 2 weeks, how often have you been bothered by any of the following problems? 1. Little interest or pleasure in doing things: not at all 2. Feeling down, depressed, or hopeless: not at all 3. Trouble falling or staying asleep, or sleeping too much: not at all 4. Feeling tired or having little energy: not at all 5. Poor appetite or overeating: not at all 6. Feeling bad about yourself - or that you are a failure or have let yourself or your family down: not at all 7. Trouble concentrating on things, such as reading the newspaper or watching television: not at all 8. Moving or speaking so slowly that other people could have noticed. Or the opposite - being so fidgety or restless that you have been moving around a lot more than usual: not at all 9. Thoughts that you would be better off or of hurting yourself in some way: not at all Total score: 0 Depression Screening Interpretation: Negative Depression Screening Done: Yes Source: Developed by Drs. Adam Ennis, Mel Burch, Fortunato Richardson and colleagues, with an educational tamara from [email or web address]. Thrive Questionnaire Date Thrive assessed: 04/09/24 I am a: Patient What is your living situation today?: I have a steady place to live Within the past 12 months, did the food you bought not last and you didn't have the money to get more?: Never true Within the past 12 months, did you worry whether your food would run out before you got money to buy more?: Never true Do you have trouble paying for medicines?: No Do you have trouble getting transportation to medical appointments?: No Do you have trouble paying your heating and electricity bill?: No Do you have trouble taking care of your child, family member or friend?: No Do you have trouble with day-to-day activities such as bathing, preparing meals, shopping, managing finances, etc.?: No Are you currently unemployed and looking for a job?: No Are you interested in more education?: No Currently or been in a relationship where the following occur: no concerns reported THRIVE Score: 0 AUDIT C Alcohol Use Questionnaire (AUDIT-C) 1. How often do you have a drink containing alcohol?: Never Total Score: 0 Score Reviewed/Action Taken: No ALEXANDRA-7 AMB Questionnaire ALEXANDRA-7 Date ALEXANDRA - 7 assessed: 04/09/24 Feeling nervous, anxious, or on edge: 0 = Not at all Not being able to stop or control worryin = Not at all Worrying too much about different things: 0 = Not at all Trouble relaxin = Not at all Being so restless that it is hard to sit still: 0 = Not at all Becoming easily annoyed or irritable: 0 = Not at all Feeling afraid as if something awful might happen: 0 = Not at all Total ALEXANDRA-7 score (0-4 normal; 5-9 mild; 10-14 moderate; 15-21 severe): 0 Source: Developed by Drs. Adam Ennis, Mel Burch, Fortunato Richardson and colleagues, with an educational tamara from [email or web address]. Physical exam (Primary Care) Vital Signs: Last Vital Signs Pulse 86 04/09/24 09:54 BP 132/76 04/09/24 09:54 Pulse Ox 97 04/09/24 09:54 Oxygen Delivery Method Room Air 04/09/24 09:54 BMI result Body Mass Index 24.8 Tobacco/Smoking Status: Tobacco use Status Tobacco use date assessed 01/01/24 04/09/24 10:03 Patient Tobacco Use Status Former Tobacco user 04/09/24 10:03 Tobacco use type Cigarette 04/09/24 10:03 e-Cigarette/Vaping Use Never Used 04/09/24 10:03 PHQ-9: PHQ-9 Score PHQ-9: Total score 0 04/09/24 10:03 Depression Screening Interpretation: Negative Thrive Assessment: Date of Thrive Assessment Date Thrive assessed 04/09/24 04/09/24 10:03 Currently or been in a relationship where the following occur: no concerns reported Const General: alert; No acute distress Eyes Conjunctivae: conjunctivae normal Resp Auscultation: clear to auscultation bilaterally Cardio Rate: regular rate Rhythm: regular rhythm GI Inspection: Yes normal to inspection Extrem General: Yes normal to inspection and No edema Assessment and Plan Assessment & Plan (1) Paroxysmal atrial fibrillation: Code(s): I48.0 - Paroxysmal atrial fibrillation Plan: Patient follows up with Cardiology on anticoagulation with Eliquis has been taken off of amiodarone (2) COPD (chronic obstructive pulmonary disease): Comment: DUE TO HIS PAST HISTORY OF SMOKING HE DOES HAVE SOME DEGREE OF CHRONIC OBSTRUCTIVE PULMONARY DISEASE WHICH IS NOT ACTIVE AT PRESENT. PLAN IS TO DO PULMONARY FUNCTION TEST AGAIN, AND THEN DECIDE IF HE WOULD NEED SOME MAINTENANCE REGIMEN TO IMPROVE HIS BREATHING. PATIENT WAS EDUCATED ABOUT ASTHMA, AND COPD. Code(s): J44.9 - Chronic obstructive pulmonary disease, unspecified Plan: Continue with the inhaler also on QVAR (3) Coronary artery disease: Comment: PTCA 1991 and 1998 stent placement April [address] Alvarado echo ejection fraction 60 65% grade 2 diastolic dysfunction March 2017, September 2017, November 2017 positive stress test echo December 2019 normal ejection fraction, May 2022 myocardial perfusion scan or Code(s): I25.10 - Atherosclerotic heart disease of [place] coronary artery without angina pectoris Qualifiers: Coronary Disease-Associated Artery/Lesion type: [place] artery [place] vs. transplanted heart: [place] heart Associated angina: without angina Qualified Code(s): I25.10 - Atherosclerotic heart disease of [place] coronary artery without angina pectoris Plan: Control the cholesterol, weight, blood pressure, diabetes on aspirin and anticoagulation with Eliquis (4) Type 2 diabetes mellitus with hyperglycemia: Comment: Dr. Franklin Code(s): E11.65 - Type 2 diabetes mellitus with hyperglycemia Qualifiers: Diabetes mellitus mcc insulin use: without mcc use Qualified Code(s): E11.65 - Type 2 diabetes mellitus with hyperglycemia Plan: Decrease the amount of carbohydrate intake, pasta, bread, rice and potatoes are all sugar and that is aside from all the sweet stuff, remember that fruits are good but they are Sweet also. Hemoglobin A1c goal of less than 7.0 diet controlled (5) Hypercholesterolemia: Code(s): E78.00 - Pure hypercholesterolemia, unspecified Plan: Avoid fried foods, chicken skin, eggs, butter margarine, pastries and meat. Be it pork or beef they have a lot of cholesterol on atorvastatin 40 mg once a day but noted last blood work showing an elevated LDL discussed about the elevated cholesterol and advised to limit eating cake and animal protein (6) Essential hypertension: Code(s): I10 - Essential (primary) hypertension Plan: Continue with blood pressure medication. Decrease salt intake and exercise on metoprolol 50 mg once a day Orders: Orders Lipid Panel 2 Months E11.65 - Type 2 diabetes mellitus with hyperglycemia, E78.00 - Pure hypercholesterolemia, unspecified Complete Blood Count Auto Diff 2 Months E11.65 - Type 2 diabetes mellitus with hyperglycemia Comprehensive Met. Panel 2 Months E11.65 - Type 2 diabetes mellitus with hyperglycemia Free T4 (Free Thyroxine) 2 Months E11.65 - Type 2 diabetes mellitus with hyperglycemia Thyroid Stimulating Hormone 2 Months E11.65 - Type 2 diabetes mellitus with hyperglycemia Hemoglobin A1c Today E11.65 - Type 2 diabetes mellitus with hyperglycemia Coding Level of Care Code Est Pt Level 4 (91900) Complex EM visit Add On G2211 Diagnoses Paroxysmal atrial fibrillation I48.0 COPD (chronic obstructive pulmonary disease) J44.9 Coronary artery disease involving [place] coronary artery of [place] heart without angina pectoris I25.10 Coronary Disease-Associated Artery/Lesion type: [place] artery [place] vs. transplanted heart: [place] heart Associated angina: without angina Type 2 diabetes mellitus with hyperglycemia, without long-term current use of insulin E11.65 Diabetes mellitus mcc insulin use: without mcc use Hypercholesterolemia E78.00 Essential hypertension I10 Additional Codes PHQ-9 - 26703 - PHQ-9 Billing: ([id number])
== END 2024-04-09 10:47 | disposition home or self-care (01) ==
PROVIDERS: PCP Internal Medicine; Visit Provider Internal Medicine
DX: I48.0 Paroxysmal atrial fibrillation (principal); J44.9 Chronic obstructive pulmonary disease, unspecified; E11.65 Type 2 diabetes mellitus with hyperglycemia; I25.10 Atherosclerotic heart disease of native coronary artery without angina pectoris; E78.00 Pure hypercholesterolemia, unspecified; I10 Essential (primary) hypertension
CPT/HCPCS: 99214; G2211

== ENCOUNTER → 2024-04-20 10:42 | Outpatient (REF) | payer MEDICARE, SELFPAY ==
--- NOTE | 2024-04-20 10:46 | CA_ITS ---
Transthoracic Echocardiogram Patient (Last, First, Middle): Juan Giles F Gender: Male Date of : 1935 Age: 88 Procedure Date: 04/20/2024 Procedure Type: Transthoracic Echocardiogram Location: OP Height: 175.26 cm Weight: 76.2 kg BSA: 1.92 m2 Heart Rate: bpm BP: 130 / 74 mmHg Advertising Clerk: SB Referring MD: Tayo Harley MD Symptoms: I25.10 - Atherosclerotic heart disease of [place] coronary artery without... Study Quality: Adequate ECG Rhythm: Atrial flutter Conclusions: - The left ventricular systolic function is mildly decreased. The visually estimated ejection fraction is between 40-45%. - There is moderately decreased right ventricular systolic function. - No obvious valvular pathology seen on this study. Findings Left Ventricle Normal left ventricular cavity size. There is normal left ventricular wall thickness. The left ventricular systolic function is mildly decreased. The visually estimated ejection fraction is between 40-45%. There is mild global hypokinesis. Diastolic function is indeterminate on the basis of available data. Right Ventricle Normal right ventricular cavity size. There is moderately decreased right ventricular systolic function. Atria Both atria are normal in size. Aortic Valve The aortic valve was not well visualized. There is no aortic valve stenosis. There is no aortic valve regurgitation. Mitral Valve There is mild mitral annular calcification. There is no mitral valve regurgitation. There is no mitral valve stenosis. Pulmonic Valve The pulmonic valve is likely normal. Tricuspid Valve Normal tricuspid valve structure. There is trace tricuspid valve regurgitation. There is no evidence of pulmonary hypertension. Great Vessels The asc aorta is normal in size. Venous The inferior vena cava was not well visualized. Pericardium/Pleural There is no evidence of pericardial effusion. Prior Study Comparison Changes noted compared to prior study dated: 06/11/2022. Decrease in LVEF. Recommendations, Care & Conclusions No obvious valvular pathology seen on this study. Measurements 2D Linear Measurements IVSd: 0.80 0.6-0.9/0.6-1.0 cm LVIDd: 4.49 3.9-5.3/4.2-5.9 cm LVIDs: 3.79 2.0-3.6 cm LVPWd: 0.70 0.7-1.1 cm LA Diam: 3.50 2.7-3.8/3.0-4.0 cm LVOT Diam: 2.00 3.0+(-)1.3 cm 2D Systolic Function EF 4C: 47.50 >55% EF 2C: 40.40 >55% EF BiP: 45.20 >55% Mitral Valve MV Pk Binh: 0.99 MV Pk Grad: 4.00 MV Pk E: 0.99 MV Decel Time: 103.00 E'Lateral: 6.41 E/E' Lat: 14.40 Aortic Valve AoV Pk Binh: 0.93 AoV Pk Grad: 3.00 LYLE: 1.96 LVOT LVOT Pk Binh: 0.65 LVOT Mn Binh: 0.49 LVOT VTI: 11.00 LVOT Pk Grad: 2.00 LVOT Mn Grad: 1.00 LVOT Diam: 2.00 Diastolic Function MV Pk E: 0.99 E' Laterial: 6.41 E/E' Lat: 14.40 Right Ventricle TAPSE (mm): 12.20 TVS' Binh: 7.00 Tricuspid Valve TR Pk Binh: 2.30 TR Pk Grad: 21.00 RA Press: 3.00 RVSP: 24.00 Great Vessels Aorta Sinus of Valsalva: 3.30 2.0-3.5 cm Ao Asc: 3.60 2.1-3.4 cm Pulmonary Valve PV Pk Binh: 0.62 Peak PV Grad: 2.00 Updated in Other Vendor System with Status of Final Tayo Harley MD electronically signed on 04/21/2024 12:08:23 PM with status of Final
--- NOTE | 2024-04-20 10:46 | HM_ITS ---
* Total monitoring time 3 days. * Underlying rhythm is atrial fibrillation. Average ventricular rate 78/Min. Most of the rates are within range. * Rare ventricular ectopy. * No significant pauses or high-grade AV blocks. * No patient markers or diary events. * Overall, well controlled atrial fibrillation. MTDD
== END ==
LOC: HO.CARD 10:42
PROVIDERS: PCP Internal Medicine; Visit Provider Internal Medicine
DX: I25.10 Atherosclerotic heart disease of native coronary artery without angina pectoris (principal); I48.0 Paroxysmal atrial fibrillation
CPT/HCPCS: 93242; 93306

== ENCOUNTER → 2024-04-20 10:46 | Outpatient (BNV) | payer MEDICARE, SELFPAY | PROVIDERS: PCP Internal Medicine; Visit Provider Internal Medicine | DX: I48.91 Unspecified atrial fibrillation (principal) | CPT/HCPCS: 93244; 93306 ==

== ENCOUNTER 2024-05-05 13:43 | Outpatient (AMB) | payer MEDICARE, SELFPAY ==
--- NOTE | 2024-05-05 14:08 | MHC.OFFVIS ---
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: No Accompanied by: Self / Same As Patient Allergies lisinopril Allergy (Unknown, Verified 04/09/24 09:55) hyperkalemia Medication List - Last Reconciled 05/05/24 by Tayo Harley MD albuterol sulfate 90 mcg/actuation (ProAir HFA) 2 puffs inhalation Q6H PRN apixaban (Eliquis) 5 mg PO BID 90 days aspirin (Adult Low Dose Aspirin) 81 mg PO DAILY atorvastatin 40 mg PO DAILY beclomethasone dipropionate 80 mcg/actuation (Qvar RediHaler) 1 inh inhalation Q12H cholecalciferol (vitamin D3) 25 mcg PO DAILY ferrous sulfate 325 mg PO DAILY metoprolol succinate ER (Toprol XL) 50 mg PO DAILY HPI Comments Details: Juan returns for follow-up. In 2021, he had atrial fibrillation with rapid rate. Subsequently, underwent SUKUMAR and cardioversion. He was then put on Multaq. He was in sinus for a while but then went back into atrial fibrillation and had symptoms from the same. Hence had one further cardioversion in August 2023. Then put on amiodarone. During the recent visit, he was noted to be back in atrial fibrillation. At that time, amiodarone was stopped and he was just left on rate control medications. Otherwise, he seems to be getting along but has some symptoms like shortness of breath extra. Does not feel as good as he is while in sinus rhythm. Holter shows atrial fibrillation with controlled rates but on the echocardiogram, LVEF has gone down to the 40s. [facility] Medical History (Updated 01/01/24 @ 09:24 by Layne Kimball MD) Hyperkalemia CEBALLOS (dyspnea on exertion) COPD (chronic obstructive pulmonary disease) Hospital discharge follow-up Chest pain Atrial fibrillation with rapid ventricular response Atrial fibrillation with rapid ventricular response Hyperkalemia Atrial fibrillation and flutter Pulmonary hypertension Diastolic dysfunction Essential hypertension Atherosclerotic cardiovascular disease Annual physical exam Hypercholesterolemia Iron deficiency anemia Vitamin D deficiency Diabetic neuropathy Left renal stone Asthma Coronary artery disease Type 2 diabetes mellitus with hyperglycemia Surgical History History of lymph node excision History of inguinal hernia repair History of appendectomy Family History Father CVD (cardiovascular disease) Myocardial infarction Mother Hypertension Heart disease Diabetes CVD (cardiovascular disease) Sister No problems noted. Sister Diabetes Social History Household Members: Family Housing: House Do you presently have visiting nurse or other home services: No Alcohol intake: never Patient Tobacco Use Status: Former Tobacco user Tobacco use type: Cigarette e-Cigarette/Vaping Use: Never Used Second Hand Smoke Exposure: No service: No Current occupational status: retired Cognitive needs: No Hearing needs: Yes Vision needs: Yes Review of Systems Const Denies chills, Denies fatigue, Denies fever(s), Denies frequent falls, Denies weakness, Denies weight gain and Denies weight loss ENT Reports dizziness Card Denies chest pain, Denies leg edema, Reports lightheadedness, Denies palpitations, Denies dyspnea and Denies dyspnea on exertion Resp Denies cough, Denies dyspnea and Denies dyspnea on exertion GI Denies hematochezia Musc Denies abnormal gait, Denies muscle weakness, Denies numbness, Denies radiating pain into limb and Denies tingling Neuro Denies abnormal gait, Reports dizziness, Denies frequent falls, Denies numbness, Denies tingling and Denies weakness Endo Denies fatigue and Denies palpitations Physical Exam Vital Signs: Last Vital Signs Pulse 95 05/05/24 14:09 BP 124/60 05/05/24 14:09 BMI result Body Mass Index 24.6 Const General: comfortable and no acute distress Orientation/consciousness: patient oriented x3 HEENT Other: Unremarkable Head: Yes normal to inspection Neck Neck: Yes normal visual inspection Chest Chest palpation & inspection: normal inspection of the chest Resp Auscultation: clear to auscultation bilaterally Cardio Palpation: normal PMI Heart sounds: S1 normal heart sound present, S2 normal heart sound present, no gallops, no murmurs and no rubs GI Palpation (GI): Soft to palpation Back/Spine/Pelvis Other: unremarkable Skin General skin exam: no rashes or lesions noted Neuro General: patient oriented x3 Extrem General: Yes normal to inspection Psych Mental Status: mental status grossly normal Assessment & Plan Assessment & Plan (1) Paroxysmal atrial fibrillation: Code(s): I48.0 - Paroxysmal atrial fibrillation Category: Medical Plan: Status post cardioversion x2. In spite of being on amiodarone, he is back in atrial fibrillation. His rate is controlled on Holter but clinically he does get short of breath/chest pressure on exertion and additionally, LVEF has gone down on the echocardiogram. Hence referred to EP for consideration of ablation. His creatinine is borderline at 1.52 and if it stays like this, consider decreasing Eliquis dose. (2) Atherosclerotic cardiovascular disease: Code(s): I25.10 - Atherosclerotic heart disease of [place] coronary artery without angina pectoris Category: Medical Plan: Cardiac [id number] post RCA and PDA stenting; midcircumflex 60% stenosis; [id number]-up-moderate disease. Myocardial perfusion imaging study from 05/2022 without any clear ischemic findings or prior infarction. Continue beta-blockers, statins. Last LDL 70 mg/dL. (3) Essential hypertension: Code(s): I10 - Essential (primary) hypertension Category: Medical Plan: Stable. No changes. Orders: Referrals Cardiac Electrophysiology Referral I48.0 - Paroxysmal atrial fibrillation Coding Level of Care Code Est Pt Level 4 (15280) Diagnoses Paroxysmal atrial fibrillation I48.0 Atherosclerotic cardiovascular disease I25.10 Essential hypertension I10
[2024-05-05 14:09] VITALS: BP 124/60; PULSE 95; BMI 24.6
== END 2024-05-05 14:28 | disposition home or self-care (01) ==
PROVIDERS: PCP Internal Medicine; Visit Provider Internal Medicine
DX: I48.0 Paroxysmal atrial fibrillation (principal); I25.10 Atherosclerotic heart disease of native coronary artery without angina pectoris; I10 Essential (primary) hypertension
CPT/HCPCS: 99214

== ENCOUNTER → 2024-05-05 13:43 | Outpatient (BNVA) | payer MEDICARE, SELFPAY | PROVIDERS: PCP Internal Medicine; Visit Provider Internal Medicine | DX: I48.0 Paroxysmal atrial fibrillation (principal); I10 Essential (primary) hypertension; I25.10 Atherosclerotic heart disease of native coronary artery without angina pectoris | CPT/HCPCS: 99212 ==

== ENCOUNTER 2024-06-09 07:31 | Outpatient (REF) | payer MEDICARE, SELFPAY ==
[2024-06-09 07:45] LABS: MANUAL DIFF FLAG NO
[2024-06-09 07:54] LABS: Basophils Percent Auto 0.4 % (0-2); Eosinophils Absolute Auto 0.2 X10*3/uL (0.0-0.4); Eosinophils Percent Auto 2.3 % (0-4); Hemoglobin 16.3 g/dl (14.0-18.0); Imm Gran Abs Auto 0.04 X10*3/uL (0.00-0.03); Imm Gran Pct Auto 0.4 % (0.0-0.4); Lymphocytes Absolute Auto 2.5 X10*3/uL (1.2-4.9); Lymphocytes Percent Auto 27.8 % (20-40); Mean Corpuscular HGB Conc 33.3 g/dl (31.0-36.0); Mean Corpuscular Hemoglobin 29.9 pg (27.0-33.0); Mean Corpuscular Volume 89.9 fL (80.0-98.0); Mean Platelet Volume 10.5 fL (9.4-12.4); Monocytes Absolute Auto 0.8 X10*3/uL (0.1-1.2); Monocytes Percent Auto 9.1 % (2-11); Neutrophils Absolute Auto 5.4 x10*3/uL (2.0-8.3); Platelet Count 223 X10*3/uL (160-400); Red Blood Count 5.45 X10*6/uL (4.60-5.80); Red Cell Distribution Width 13.7 % (11.0-16.0); White Blood Count 9.1 X10*3/uL (4.8-10.8)
[2024-06-09 08:04] LABS: Estimated Average Glucose 128 mg/dL; Hemoglobin A1c % 6.1 % (<6.0)
[2024-06-09 08:38] LABS: Alanine Aminotransferase 16 U/L (0-40); Albumin Level 4.2 g/dL (3.5-5.0); Alkaline Phosphatase 99 U/L (39-117); Anion Gap 11 (12-20); Aspartate Amino Transferase 22 U/L (5-37); Blood Urea Nitrogen 19 mg/dL (9-16); Calcium 9.5 mg/dL (8.4-10.2); Carbon Dioxide 28 mmol/L (22-29); Chloride 107 mmol/L (96-108); Cholesterol 150 mg/dL (<200); Estimated Glomerular Filt Rate 57; Glucose Random 128 mg/dL (60-115); HDL Cholesterol 43 mg/dL (>40); LDL Cholesterol Calculated 80 mg/dL (<100); Potassium 3.9 mmol/L (3.3-5.1); Sodium 142 mmol/L (135-145); Triglycerides 138 mg/dL (<150)
[2024-06-09 08:54] LABS: Free T4 (Free Thyroxine) 0.92 ng/dL (0.71-1.85); Thyroid Stimulating Hormone 7.77 uIU/mL (0.32-4.0)
[2024-06-09 10:31] LABS: Creatinine Urine 188.57 mg/dL
== END 2024-06-09 07:32 | disposition home or self-care (01) ==
LOC: HO.LAB 07:31
PROVIDERS: PCP Internal Medicine; Visit Provider Internal Medicine
DX: E11.65 Type 2 diabetes mellitus with hyperglycemia (principal); E78.00 Pure hypercholesterolemia, unspecified
CPT/HCPCS: 36415; 80053; 80061; 82570; 83036; 84439; 84443; 85025

== ENCOUNTER 2024-08-17 07:30 | Outpatient (REF) | payer MEDICARE, SELFPAY ==
[2024-08-17 08:43] LABS: Free T4 (Free Thyroxine) 1.21 ng/dL (0.71-1.85); Thyroid Stimulating Hormone 4.97 uIU/mL (0.32-4.0)
== END 2024-08-17 07:31 | disposition home or self-care (01) ==
LOC: HO.LAB 07:30
PROVIDERS: PCP Internal Medicine; Visit Provider Internal Medicine
DX: R79.89 Other specified abnormal findings of blood chemistry (principal)
CPT/HCPCS: 36415; 84439; 84443

== ENCOUNTER 2024-08-27 09:12 | Outpatient (AMB) | payer MEDICARE, SELFPAY ==
[2024-08-27 09:18] VITALS: BP 118/70; PULSE 90; O2SAT 94; BMI 24.1
--- NOTE | 2024-08-27 09:18 | MHC.PC.OV ---
Vital Signs 08/27/24 09:18 Height 5 ft 9 in Weight 163 lb BMI 24.1 BP 118/70 Blood Pressure Location Lt brachial Position Sitting Pulse 90 Pulse Source Pulse Oximeter Pulse Oximetry (%) 94 Oxygen Delivery Method Room Air Intake Visit Reasons: CAD, A fib Intake Note: Patient is wheezing. Allergies lisinopril Allergy (Unknown, Verified 08/27/24 09:18) hyperkalemia Tobacco use date assessed: 01/01/24 Fall risk assessment: No Falls in past year Last assessed Fall Risk: 08/27/24 Dental Screening Dental Screen Date: 01/01/24 HPI CAD, A fib HPI Details 88-year-old male with atrial fibrillation COPD diabetes mellitus coronary artery disease hypercholesterolemia hypertension last seen in 04/22/2024. Review of the notes follows up with Cardiology May 2024 atrial fibrillation status post cardioversion x2 back in atrial fibrillation. Controlled rate continue to monitor renal function. Patient was referred to cardiac EPS. Echocardiogram last done in April 2024 The left ventricular systolic function is mildly decreased. The visually estimated ejection fraction is between 40-45%. - There is moderately decreased right ventricular systolic function. - No obvious valvular pathology seen on this study. [facility] Medical History (Updated 06/13/24 @ 11:10 by Layne Kimball MD) Hyperkalemia CEBALLOS (dyspnea on exertion) COPD (chronic obstructive pulmonary disease) Hospital discharge follow-up Chest pain Atrial fibrillation with rapid ventricular response Atrial fibrillation with rapid ventricular response Hyperkalemia Atrial fibrillation and flutter Pulmonary hypertension Diastolic dysfunction Essential hypertension Atherosclerotic cardiovascular disease Annual physical exam Hypercholesterolemia Iron deficiency anemia Vitamin D deficiency Diabetic neuropathy Left renal stone Asthma Coronary artery disease Type 2 diabetes mellitus with hyperglycemia Surgical History History of lymph node excision History of inguinal hernia repair History of appendectomy Family History Father CVD (cardiovascular disease) Myocardial infarction Mother Hypertension Heart disease Diabetes CVD (cardiovascular disease) Sister No problems noted. Sister Diabetes Social History Household Members: Family Housing: House Do you presently have visiting nurse or other home services: No Alcohol intake: never Patient Tobacco Use Status: Former Tobacco user Tobacco use type: Cigarette e-Cigarette/Vaping Use: Never Used Second Hand Smoke Exposure: No service: No Current occupational status: retired Cognitive needs: No Hearing needs: Yes Vision needs: Yes Questionnaire PHQ-9 Over the last 2 weeks, how often have you been bothered by any of the following problems? 1. Little interest or pleasure in doing things: not at all 2. Feeling down, depressed, or hopeless: not at all 3. Trouble falling or staying asleep, or sleeping too much: not at all 4. Feeling tired or having little energy: not at all 5. Poor appetite or overeating: not at all 6. Feeling bad about yourself - or that you are a failure or have let yourself or your family down: not at all 7. Trouble concentrating on things, such as reading the newspaper or watching television: not at all 8. Moving or speaking so slowly that other people could have noticed. Or the opposite - being so fidgety or restless that you have been moving around a lot more than usual: not at all 9. Thoughts that you would be better off or of hurting yourself in some way: not at all Total score: 0 Depression Screening Interpretation: Negative Depression Screening Done: Yes Source: Developed by Drs. Adam Ennis, Mel Burch, Fortunato Richardson and colleagues, with an educational tamara from [employer]. Thrive Questionnaire Date Thrive assessed: 04/09/24 AUDIT C Alcohol Use Questionnaire (AUDIT-C) 1. How often do you have a drink containing alcohol?: Never 3. How often do you have six or more drinks on one occasion?: Never Total Score: 0 Score Reviewed/Action Taken: No ALEXANDRA-7 AMB Questionnaire ALEXANDRA-7 Date ALEXANDRA - 7 assessed: 04/09/24 Source: Developed by Mel Francisco Kurt Kroenke and colleagues, with an educational tamara from [employer]. Physical exam (Primary Care) Vital Signs: Last Vital Signs Pulse 90 08/27/24 09:18 BP 118/70 08/27/24 09:18 Pulse Ox 94 08/27/24 09:18 Oxygen Delivery Method Room Air 08/27/24 09:18 BMI result Body Mass Index 24.1 Tobacco/Smoking Status: Tobacco use Status Tobacco use date assessed 01/01/24 08/27/24 09:19 Patient Tobacco Use Status Former Tobacco user 08/27/24 09:19 Tobacco use type Cigarette 08/27/24 09:19 e-Cigarette/Vaping Use Never Used 08/27/24 09:19 PHQ-9: PHQ-9 Score PHQ-9: Total score 0 08/27/24 09:19 Depression Screening Interpretation: Negative Thrive Assessment: Date of Thrive Assessment Date Thrive assessed 04/09/24 08/27/24 09:19 Const General: alert; No acute distress Eyes Conjunctivae: conjunctivae normal Resp Other: wheezing noted Cardio Rate: regular rate Rhythm: regular rhythm GI Inspection: Yes normal to inspection Extrem General: Yes normal to inspection and No edema Coding Level of Care Code Est Pt Level 4 (60373) Complex EM visit Add On G2211 Diagnoses Paroxysmal atrial fibrillation I48.0 COPD (chronic obstructive pulmonary disease) J44.9 Coronary artery disease involving [place] coronary artery of [place] heart without angina pectoris I25.10 Coronary Disease-Associated Artery/Lesion type: [place] artery [place] vs. transplanted heart: [place] heart Associated angina: without angina Type 2 diabetes mellitus with hyperglycemia, without long-term current use of insulin E11.65 Diabetes mellitus moth exterminator insulin use: without intermediate use Hypercholesterolemia E78.00 Essential hypertension I10 Additional Codes PHQ-9 - 09160 - PHQ-9 Billing: ([id number]) Assessment & Plan Assessment & Plan (1) Paroxysmal atrial fibrillation: Code(s): I48.0 - Paroxysmal atrial fibrillation Category: Medical Plan: Patient has seen Cardiology and was referred for EPS studies. Continuing with anticoagulation 5 mg twice a day. will see EPS 09/2024 (2) COPD (chronic obstructive pulmonary disease): Comment: DUE TO HIS PAST HISTORY OF SMOKING HE DOES HAVE SOME DEGREE OF CHRONIC OBSTRUCTIVE PULMONARY DISEASE WHICH IS NOT ACTIVE AT PRESENT. PLAN IS TO DO PULMONARY FUNCTION TEST AGAIN, AND THEN DECIDE IF HE WOULD NEED SOME MAINTENANCE REGIMEN TO IMPROVE HIS BREATHING. PATIENT WAS EDUCATED ABOUT ASTHMA, AND COPD. Code(s): J44.9 - Chronic obstructive pulmonary disease, unspecified Category: Medical Plan: Continue with inhaler as needed (3) Coronary artery disease: Comment: PTCA 1991 and 1998 stent placement April [address] Alvarado echo ejection fraction 60 65% grade 2 diastolic dysfunction March 2017, September 2017, November 2017 positive stress test echo December 2019 normal ejection fraction, May 2022 myocardial perfusion scan or Code(s): I25.10 - Atherosclerotic heart disease of [place] coronary artery without angina pectoris Category: Medical Qualifiers: Coronary Disease-Associated Artery/Lesion type: [place] artery [place] vs. transplanted heart: [place] heart Associated angina: without angina Qualified Code(s): I25.10 - Atherosclerotic heart disease of [place] coronary artery without angina pectoris Plan: Control the cholesterol, weight, blood pressure, diabetes patient is on anticoagulation and aspirin (4) Type 2 diabetes mellitus with hyperglycemia: Comment: Dr. Franklin Code(s): E11.65 - Type 2 diabetes mellitus with hyperglycemia Category: Medical Qualifiers: Diabetes mellitus moth exterminator insulin use: without moth exterminator use Qualified Code(s): E11.65 - Type 2 diabetes mellitus with hyperglycemia Plan: Decrease the amount of carbohydrate intake, pasta, bread, rice and potatoes are all sugar and that is aside from all the sweet stuff, remember that fruits are good but they are Sweet also. Controlled hemoglobin A1c goal of less than 7.0 (5) Hypercholesterolemia: Code(s): E78.00 - Pure hypercholesterolemia, unspecified Category: Medical Plan: Avoid fried foods, chicken skin, eggs, butter margarine, pastries and meat. Be it pork or beef they have a lot of cholesterol on atorvastatin 40 mg once a day goal of LDL is less than 70. (6) Essential hypertension: Code(s): I10 - Essential (primary) hypertension Category: Medical Plan: Continue with blood pressure medication. Decrease salt intake and exercise on metoprolol 50 mg once a day Orders: Orders Lipid Panel 3 Months E78.00 - Pure hypercholesterolemia, unspecified Free T4 (Free Thyroxine) 3 Months I25.10 - Atherosclerotic heart disease of [place] coronary artery without angina pectoris Comprehensive Met. Panel 3 Months I25.10 - Atherosclerotic heart disease of [place] coronary artery without angina pectoris Thyroid Stimulating Hormone 3 Months I25.10 - Atherosclerotic heart disease of [place] coronary artery without angina pectoris Hemoglobin A1c 3 Months I25.10 - Atherosclerotic heart disease of [place] coronary artery without angina pectoris Complete Blood Count Auto Diff 3 Months I25.10 - Atherosclerotic heart disease of [place] coronary artery without angina pectoris Medications: Changed From atorvastatin 40 mg PO DAILY 90 tabs 3RF To atorvastatin 80 mg PO DAILY 90 tabs 3RF
== END 2024-08-27 09:51 | disposition home or self-care (01) ==
PROVIDERS: PCP Internal Medicine; Visit Provider Internal Medicine
DX: I48.0 Paroxysmal atrial fibrillation (principal); J44.9 Chronic obstructive pulmonary disease, unspecified; I25.10 Atherosclerotic heart disease of native coronary artery without angina pectoris; E11.65 Type 2 diabetes mellitus with hyperglycemia; E78.00 Pure hypercholesterolemia, unspecified; I10 Essential (primary) hypertension

== ENCOUNTER → 2024-08-27 09:12 | Outpatient (BNVA) | payer MEDICARE, SELFPAY | PROVIDERS: PCP Internal Medicine; Visit Provider Internal Medicine | DX: I48.0 Paroxysmal atrial fibrillation (principal); J44.9 Chronic obstructive pulmonary disease, unspecified; I25.10 Atherosclerotic heart disease of native coronary artery without angina pectoris; E11.65 Type 2 diabetes mellitus with hyperglycemia; E78.00 Pure hypercholesterolemia, unspecified; I10 Essential (primary) hypertension | CPT/HCPCS: 96127; 99212 ==

== ENCOUNTER 2024-09-16 09:11 | Outpatient (AMB) | payer MEDICARE, SELFPAY ==
[2024-09-16 09:27] VITALS: BP 150/70; PULSE 86; BMI 24.3
--- NOTE | 2024-09-16 09:27 | MHC.OFFVIS ---
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: No Accompanied by: Self / Same As Patient Allergies lisinopril Allergy (Unknown, Verified 08/27/24 09:18) hyperkalemia Medication List - Last Reconciled 09/16/24 by Tayo Harley MD albuterol sulfate 90 mcg/actuation (ProAir HFA) 2 puffs inhalation Q6H PRN apixaban (Eliquis) 5 mg PO BID 90 days aspirin (Adult Low Dose Aspirin) 81 mg PO DAILY atorvastatin 80 mg PO DAILY beclomethasone dipropionate 80 mcg/actuation (Qvar RediHaler) 1 inh inhalation Q12H cholecalciferol (vitamin D3) 25 mcg PO DAILY ferrous sulfate 325 mg PO DAILY metoprolol succinate ER (Toprol XL) 50 mg PO DAILY HPI Comments Details: Juan returns for follow-up. In 2021, he had atrial fibrillation with rapid rate. Subsequently, underwent SUKUMAR and cardioversion. He was then put on Multaq. He was in sinus for a while but then went back into atrial fibrillation and had symptoms from the same. Hence had one further cardioversion in August 2023. Then put on amiodarone. During the recent visit, he was noted to be back in atrial fibrillation. At that time, Amiodarone was stopped and he was just left on rate control medications. Recently, he has been complaining of shortness of breath with activity. Apparently, not feeling as good as he was in sinus rhythm. Holter with atrial fibrillation but controlled rates. However, on the echocardiogram, LVEF has gone down into the 40s. [facility] Medical History (Updated 06/13/24 @ 11:10 by Layne Kimball MD) Hyperkalemia CEBALLOS (dyspnea on exertion) COPD (chronic obstructive pulmonary disease) Hospital discharge follow-up Chest pain Atrial fibrillation with rapid ventricular response Atrial fibrillation with rapid ventricular response Hyperkalemia Atrial fibrillation and flutter Pulmonary hypertension Diastolic dysfunction Essential hypertension Atherosclerotic cardiovascular disease Annual physical exam Hypercholesterolemia Iron deficiency anemia Vitamin D deficiency Diabetic neuropathy Left renal stone Asthma Coronary artery disease Type 2 diabetes mellitus with hyperglycemia Surgical History History of lymph node excision History of inguinal hernia repair History of appendectomy Family History Father CVD (cardiovascular disease) Myocardial infarction Mother Hypertension Heart disease Diabetes CVD (cardiovascular disease) Sister No problems noted. Sister Diabetes Social History Household Members: Family Housing: House Do you presently have visiting nurse or other home services: No Alcohol intake: never Patient Tobacco Use Status: Former Tobacco user Tobacco use type: Cigarette e-Cigarette/Vaping Use: Never Used Second Hand Smoke Exposure: No service: No Current occupational status: retired Cognitive needs: No Hearing needs: Yes Vision needs: Yes Review of Systems Const Denies chills, Denies fatigue, Denies fever(s), Denies frequent falls, Denies weakness, Denies weight gain and Denies weight loss ENT Denies dizziness Card Denies chest pain, Denies leg edema, Denies lightheadedness, Denies palpitations, Denies dyspnea and Denies dyspnea on exertion Resp Denies cough, Denies dyspnea and Denies dyspnea on exertion GI Denies hematochezia Musc Denies abnormal gait, Denies muscle weakness, Denies numbness, Denies radiating pain into limb and Denies tingling Neuro Denies abnormal gait, Denies dizziness, Denies frequent falls, Denies numbness, Denies tingling and Denies weakness Endo Denies fatigue and Denies palpitations Physical Exam Vital Signs: Last Vital Signs Pulse 86 09/16/24 09:27 BP 150/70 H 09/16/24 09:27 BMI result Body Mass Index 24.3 Const General: comfortable and no acute distress Orientation/consciousness: patient oriented x3 HEENT Other: Unremarkable Head: Yes normal to inspection Neck Neck: Yes normal visual inspection Chest Chest palpation & inspection: normal inspection of the chest Resp Auscultation: rhonchi and diminished lung sounds Cardio Palpation: normal PMI Heart sounds: S1 normal heart sound present, S2 normal heart sound present, no gallops, no murmurs and no rubs GI Palpation (GI): Soft to palpation Back/Spine/Pelvis Other: unremarkable Skin General skin exam: no rashes or lesions noted Neuro General: patient oriented x3 Extrem General: Yes normal to inspection Psych Mental Status: mental status grossly normal Assessment & Plan Assessment & Plan (1) Paroxysmal atrial fibrillation: Code(s): I48.0 - Paroxysmal atrial fibrillation Category: Medical Plan: Status post cardioversion x2. In spite of being on amiodarone, he is back in atrial fibrillation. His rate is controlled on Holter but clinically he does get short of breath/chest pressure on exertion and additionally, LVEF has gone down on the echocardiogram. He is awaiting EP appointment to discuss ablation but because of his age may not be suitable. In that case, we will leave him on the current regimen. (2) Atherosclerotic cardiovascular disease: Code(s): I25.10 - Atherosclerotic heart disease of [place] coronary artery without angina pectoris Category: Medical Plan: Cardiac [id number] post RCA and PDA stenting; midcircumflex 60% stenosis; RKG-eugz-yi-moderate disease. Myocardial perfusion imaging study from 05/2022 without any clear ischemic findings or prior infarction. Continue beta-blockers, statins. Last LDL 80 mg/dL. (3) Essential hypertension: Code(s): I10 - Essential (primary) hypertension Category: Medical Plan: Slightly elevated today but has been up and down at different times. Within the last few weeks, several readings are normal. No changes made today. Coding Level of Care Code Est Pt Level 4 (14003) Diagnoses Paroxysmal atrial fibrillation I48.0 Atherosclerotic cardiovascular disease I25.10 Essential hypertension I10
== END 2024-09-16 09:43 | disposition home or self-care (01) ==
PROVIDERS: PCP Internal Medicine; Visit Provider Internal Medicine
DX: I48.0 Paroxysmal atrial fibrillation (principal); I25.10 Atherosclerotic heart disease of native coronary artery without angina pectoris; I10 Essential (primary) hypertension
CPT/HCPCS: 99214

== ENCOUNTER → 2024-09-16 09:11 | Outpatient (BNVA) | payer MEDICARE, SELFPAY | PROVIDERS: PCP Internal Medicine; Visit Provider Internal Medicine | DX: I48.0 Paroxysmal atrial fibrillation (principal); I25.10 Atherosclerotic heart disease of native coronary artery without angina pectoris; I10 Essential (primary) hypertension | CPT/HCPCS: 99212 ==

== ENCOUNTER 2024-10-25 14:35 | Outpatient (AMB) | payer MEDICARE, SELFPAY ==
[2024-10-25 14:39] VITALS: BP 128/74; PULSE 97; O2SAT 99; BMI 24.5
--- NOTE | 2024-10-25 14:39 | A.OFFPC_ITS ---
Vital Signs 10/25/24 14:39 Height 5 ft 9 in Weight 166 lb 4 oz BMI 24.5 BP 128/74 Blood Pressure Location Lt brachial Position Sitting Pulse 97 Pulse Source Pulse Oximeter Pulse Oximetry (%) 99 Oxygen Delivery Method Room Air Intake Visit Reasons: preop Dr Price 11/08 eye surgery and 11/22 Allergies lisinopril Allergy (Unknown, Verified 10/25/24 15:00) hyperkalemia Medication List - Last Reconciled 10/25/24 by Kylah Kaur PA-C albuterol sulfate 90 mcg/actuation (ProAir HFA) 2 puffs inhalation Q6H PRN apixaban (Eliquis) 5 mg PO BID 90 days aspirin (Adult Low Dose Aspirin) 81 mg PO DAILY atorvastatin 80 mg PO DAILY beclomethasone dipropionate 80 mcg/actuation (Qvar RediHaler) 1 inh inhalation Q12H cholecalciferol (vitamin D3) 25 mcg PO DAILY ferrous sulfate 325 mg PO DAILY metoprolol succinate ER (Toprol XL) 50 mg PO DAILY Tobacco use date assessed: 10/25/24 Fall risk assessment: No Falls in past year Last assessed Fall Risk: 10/25/24 Dental Screening Dental Screen Date: 10/25/24 Did you have a dental visit in the last 12 months?: No Did you have a dental problem in the last 6 months where you did not have access to dental care?: No Was dental information given to patient?: Patient declined HPI preop Dr Price 11/08 eye surgery and 11/22 HPI Details 89-year-old male with past medical histo ry of atrial fibrillation, COPD, diabetes mellitus, coronary artery disease, hypercholesterolemia, hypertension last seen August 2024 coming in for preoperative visit. Patient is scheduled to have cataract surgery with Dr. Carbajal 11/08/2024 and 11/22/2024.?In review of the notes patient was seen by [facility] 09/16/2024 persistent atrial fibrillation that is rate controlled advised to continue on current medication regimen. Diabetes mellitus: Not currently on medical management. Last A1c 6.5%. Hypertension: Currently on metoprolol and well managed 120/74 today. Atrial fibrillation: On anticoagulation with Eliquis and rate controlled with [facility]oprolol [facility] Medical History Hyperkalemia CEBALLOS (dyspnea on exertion) COPD (chronic obstructive pulmonary disease) Hospital discharge follow-up Chest pain Atrial fibrillation with rapid ventricular response Atrial fibrillation with rapid ventricular response Hyperkalemia Atrial fibrillation and flutter Pulmonary hypertension Diastolic dysfunction Essential hypertension Atherosclerotic cardiovascular disease Annual physical exam Hypercholesterolemia Iron deficiency anemia Vitamin D deficiency Diabetic neuropathy Left renal stone Asthma Coronary artery disease Type 2 diabetes mellitus with hyperglycemia Surgical History History of lymph node excision History of inguinal hernia repair History of appendectomy Family History Father CVD (cardiovascular disease) Myocardial infarction Mother Hypertension Heart disease Diabetes CVD (cardiovascular disease) Sister No problems noted. Sister Diabetes Social History Household Members: Family Housing: House Do you presently have visiting nurse or other home services: No Alcohol intake: never Patient Tobacco Use Status: Former Tobacco user Tobacco use type: Cigarette e-Cigarette/Vaping Use: Never Used Second Hand Smoke Exposure: No service: No Current occupational status: retired Cognitive needs: No Hearing needs: Yes Vision needs: Yes Questionnaire PHQ-9 Over the last 2 weeks, how often have you been bothered by any of the following problems? 1. Little interest or pleasure in doing things: not at all 2. Feeling down, depressed, or hopeless: not at all 3. Trouble falling or staying asleep, or sleeping too much: not at all 4. Feeling tired or having little energy: not at all 5. Poor appetite or overeating: not at all 6. Feeling bad about yourself - or that you are a failure or have let yourself or your family down: not at all 7. Trouble concentrating on things, such as reading the newspaper or watching television: not at all 8. Moving or speaking so slowly that other people could have noticed. Or the opposite - being so fidgety or restless that you have been moving around a lot more than usual: not at all 9. Thoughts that you would be better off or of hurting yourself in some way: not at all Total score: 0 Depression Screening Interpretation: Negative Depression Screening Done: Yes Source: Developed by Drs. Adam Ennis, Mel Burch, Fortunato Richardson and colleagues, with an educational tamara from [employer]. Thrive Questionnaire Date Thrive assessed: 10/25/24 I am a: Patient What is your living situation today?: I have a steady place to live Within the past 12 months, did the food you bought not last and you didn't have the money to get more?: Never true Within the past 12 months, did you worry whether your food would run out before you got money to buy more?: Never true Do you have trouble paying for medicines?: No Do you have trouble getting transportation to medical appointments?: No Do you have trouble paying your heating and electricity bill?: No Do you have trouble taking care of your child, family member or friend?: No Do you have trouble with day-to-day activities such as bathing, preparing meals, shopping, managing finances, etc.?: No Are you currently unemployed and looking for a job?: No Are you interested in more education?: No THRIVE Score: 0 AUDIT C Alcohol Use Questionnaire (AUDIT-C) 1. How often do you have a drink containing alcohol?: Never 3. How often do you have six or more drinks on one occasion?: Never Total Score: 0 Score Reviewed/Action Taken: No ALEXANDRA-7 AMB Questionnaire ALEXANDRA-7 Date ALEXANDRA - 7 assessed: 10/25/24 Feeling nervous, anxious, or on edge: 0 = Not at all Not being able to stop or control worryin = Not at all Worrying too much about different things: 0 = Not at all Trouble relaxin = Not at all Being so restless that it is hard to sit still: 0 = Not at all Becoming easily annoyed or irritable: 0 = Not at all Feeling afraid as if something awful might happen: 0 = Not at all Total ALEXANDRA-7 score (0-4 normal; 5-9 mild; 10-14 moderate; 15-21 severe): 0 Source: Developed by Drs. Adam Ennis, Fortunato Thomas and colleagues, with an educational tamara from [employer]. Review of Systems Const Denies body aches, Denies fatigue, Denies fever(s), Denies frequent falls, Denies headache(s) and Denies weakness Eyes Reports no additional complaints and Denies change in vision ENT Denies dizziness, Denies facial pain, Denies headache(s) and Denies nasal congestion Card Denies chest pain, Denies syncope, Denies irregular heart rhythm, Denies leg edema, Denies lightheadedness and Denies dyspnea Resp Denies cough and Denies dyspnea GI Denies abdominal pain, Denies constipation, Denies dyspepsia, Denies diarrhea, Denies nausea and Denies vomiting Reports no additional complaints Musc Denies back pain and Denies myalgias Skin/Breast Reports system reviewed and no additional complaints, except as documented Neuro Denies dizziness, Denies syncope, Denies frequent falls, Denies headache(s) and Denies weakness Psych Reports no additional complaints Endo Denies fatigue Physical exam (Primary Care) Tobacco/Smoking Status: Tobacco use Status Tobacco use date assessed 01/01/24 10/25/24 14:39 Patient Tobacco Use Status Former Tobacco user 10/25/24 14:39 Tobacco use type Cigarette 10/25/24 14:39 e-Cigarette/Vaping Use Never Used 10/25/24 14:39 Depression Screening Interpretation: Negative Thrive Assessment: Date of Thrive Assessment Date Thrive assessed 04/09/24 10/25/24 14:39 Const General: cooperative, healthy appearing, comfortable and no acute distress Orientation/consciousness: patient oriented x3 HENMT Head: Yes normocephalic Ears: hearing grossly normal bilaterally General nose exam: Normal external nose present Eyes General: appearance normal, both eyes and all related structures Conjunctivae: conjunctivae normal Neck Neck: Yes full ROM and Yes no lymphadenopathy Resp Effort & Inspection: normal respiratory effort Auscultation: clear to auscultation bilaterally, no crackles, no rales, no rhonchi and no wheezes Cardio Rate: regular rate Rhythm: regular rhythm Skin General skin exam: no rashes or lesions noted Neuro General: patient oriented x3 Gait exam (Neuro): Normal gait present Extrem General: Yes normal to inspection, Yes full ROM and No edema Psych Affect: normal affect Attitude: cooperative Insight: Good insight present (Psych) Judgement: Good judgement present (Psych) Results AMB Hemoglobin A1c AMB Hemoglobin A1c 6.5 % Last Edit by Angy Alejandro CMA on 10/25/24 14:54 Coding Level of Care Code Est Pt Level 4 (58871) Diagnoses Pre-op evaluation Z01.818 Assessment & Plan Assessment & Plan (1) Pre-op evaluation: Code(s): Z01.818 - Encounter for other preprocedural examination Category: Medical Plan: Regarding preop clearance, the patient is at moderate risk for proposed surgery due to age and comorbidities however they are well managed at this time. Reviewed with the patient that no surgery is completely free of risk and that this examination is to assist the surgeon in reviewing informed consent. Ordered for updated blood work and addendum will be added once blood work has been reviewed. As modern cataract surgeries rarely cause any bleeding, he is advised that he should continue on his low dose Aspirin 81 mg QD; he should also be able to continue on his Eliquis 5 mg b.i.d. but is advised that I will leave it up to the discretion of the cylinder batcher performing the procedure if he is comfortable with patient being on Eliquis or not for his eye surgery. If the surgeon would like to discontinue Eliquis prior to the procedure he will need cardiology risk stratification as he was still in atrial fibrillation at his last visit. Plan This note was constructed using voice recognition software. While every effort has been made to ensure accuracy and irrigation equipment remover, still areas may have been included sometimes these areas may affect the content or meeting of the given symptoms. Total time spent caring for the patient today was 30 minutes. This includes time spent before the visit reviewing the chart, time spent during the visit, and time spent after the visit and documentation. Orders: Orders AMB Hemoglobin A1c Today Z13.9 - Encounter for screening, unspecified Comprehensive Met. Panel Today Z01.818 - Encounter for other preprocedural examination Complete Blood Count Auto Diff Today Z01.818 - Encounter for other preprocedural examination
== END 2024-10-25 15:24 | disposition home or self-care (01) ==
PROVIDERS: PCP Internal Medicine
DX: Z13.9 Encounter for screening, unspecified (principal); Z01.818 Encounter for other preprocedural examination

== ENCOUNTER → 2024-10-25 14:35 | Outpatient (BNVA) | payer MEDICARE, SELFPAY | PROVIDERS: PCP Internal Medicine | DX: Z01.818 Encounter for other preprocedural examination (principal); E11.9 Type 2 diabetes mellitus without complications; I48.91 Unspecified atrial fibrillation; J44.9 Chronic obstructive pulmonary disease, unspecified; I25.10 Atherosclerotic heart disease of native coronary artery without angina pectoris; E78.00 Pure hypercholesterolemia, unspecified; I10 Essential (primary) hypertension; Z79.01 Long term (current) use of anticoagulants | CPT/HCPCS: 83036; 96127; 99212 ==

== ENCOUNTER 2024-10-29 06:32 | Outpatient (REF) | payer MEDICARE, SELFPAY ==
--- OUTSIDE RECORDS SUMMARY | 2024-10-29 06:35 | XMS_ITS | Continuity of Care Document ---
Author Organization [facility] Address [address] [place] [id number]- Care Team Providers Care Mate [employer] Name Role Phone Po Layne STATON Primary Care Physician [phone] Encounter [facility] ACCT R [id number] Date(s): 09/27/24 - 10/27/24 [facility] [address] [place] [id number]- Attending Physician: Trish Avalos Admitting Physician: Trish Avalos Referring Physician: Admtr ArQi Encounter Type: Triage Allergies, Adverse Reactions, Alerts No Known Allergies Medications aspirin 81 mg oral tablet 1 tablet = 81 mg, By Mouth, Daily, # 30 tablet, 0 Refills, Maintenance, 05/01/16 7:01:46 AM EDT, Tablet Start Date: 05/01/16 Status: Ordered Quantity: 30.0 Unit: tablet Repeat number: 1 atorvastatin 20 mg oral tablet 1 tablet = 20 mg, By Mouth, Daily, # 30 tablet, 0 Refills, Maintenance, Tablet Start Date: 05/01/16 Status: Ordered Quantity: 30.0 Unit: tablet Repeat number: 1 Eliquis 5 mg oral tablet 1 tablet = 5 mg, By Mouth, 2 times a day, # 60 tablet, 5 Refills, Maintenance, 09/27/24 8:48:00 AM EST, Tablet, Partial fill upon patient request if the prescription is for a schedule II opioid drug. Start Date: 09/27/24 Status: Ordered Quantity: 60.0 Unit: tablet Repeat number: 1 lisinopril 5 mg oral tablet 5 mg, By Mouth, Daily, # 30 tablet, Refills 6, Tot. Refills 6, Maintenance, 05/02/16 9:17:45 AM EDT,Route to Pharmacy Electronically, [facility]/pharmacy #[id number] Start Date: 05/02/16 Status: Ordered Quantity: 30.0 Unit: tablet Repeat number: 7 metFORMIN 1000 mg oral tablet 1 tablet = 1,000 mg, By Mouth, 2 times a day, # 180 tablet, 0 Refills, Maintenance, 05/01/16 7:02:04AM EDT, Tablet Start Date: 05/01/16 Status: Ordered Quantity: 180.0 Unit: tablet Repeat number: 1 metoprolol 50 mg oral tablet 50 mg, 1, tablet, By Mouth, 2 times a day, Refills 0, Maintenance, 05/01/16 7:02:41 AM EDT Start Date: 05/01/16 Status: Ordered Repeat number: 1 pioglitazone 15 mg oral tablet 1 tablet = 15 mg, By Mouth, Daily, # 30 tablet, 0 Refills, Maintenance, 05/01/16 7:03:29 AM EDT, Tablet Start Date: 05/01/16 Status: Ordered Quantity: 30.0 Unit: tablet Repeat number: 1 Plavix 75 mg oral tablet 75 mg, By Mouth, Daily, # 90 tablet, Refills 3, Tot. Refills 3, Maintenance, 05/01/16 12:30:36 PM EDT, Print Requisition Start Date: 05/01/16 Status: Ordered Quantity: 90.0 Unit: tablet Repeat number: 4 Social History Social History Type Response Smoking Status Former smoker; Other : Patient reports he quit tobacco 2013 without relapse and feels confident he'll remain smoke-free for the rest of his life.; entered on: 05/10/16 Sex Sex Representation Male (finding) Patient Care team information Care Team Personnel Name: Layne Kimball MD Position: Reference Physician Member Role: PCP Address: [address] [place] [address] Telecom: Care Team Related Persons Name: RAMESH BUSTAMANTE Name: TERRI GRANT Insurance Providers Guarantor name: MARIZA Health Plan Information #: 1 Payer: NA Member Number: NA Policy Number: NA Group Number: NA
[2024-10-29 06:47] LABS: MANUAL DIFF FLAG NO
[2024-10-29 07:53] LABS: Basophils Absolute Auto 0.1 X10*3/uL (0.0-0.2); Basophils Percent Auto 0.7 % (0-2); Eosinophils Absolute Auto 0.2 X10*3/uL (0.0-0.4); Eosinophils Percent Auto 2.5 % (0-4); Hematocrit 49.5 % (42.0-52.0); Hemoglobin 16.2 g/dl (14.0-18.0); Imm Gran Abs Auto 0.02 X10*3/uL (0.00-0.03); Imm Gran Pct Auto 0.2 % (0.0-0.4); Lymphocytes Percent Auto 35.1 % (20-40); Mean Corpuscular HGB Conc 32.7 g/dl (31.0-36.0); Mean Corpuscular Hemoglobin 29.6 pg (27.0-33.0); Mean Corpuscular Volume 90.3 fL (80.0-98.0); Monocytes Absolute Auto 0.8 X10*3/uL (0.1-1.2); Monocytes Percent Auto 9.5 % (2-11); Neutrophils Absolute Auto 4.4 x10*3/uL (2.0-8.3); Platelet Count 216 X10*3/uL (160-400); Red Blood Count 5.48 X10*6/uL (4.60-5.80); Red Cell Distribution Width 13.3 % (11.0-16.0); White Blood Count 8.4 X10*3/uL (4.8-10.8)
[2024-10-29 08:24] LABS: Alanine Aminotransferase 24 U/L (0-40); Alkaline Phosphatase 106 U/L (39-117); Anion Gap 13 (12-20); Aspartate Amino Transferase 31 U/L (5-37); Bilirubin Total 0.8 mg/dL (0.0-1.0); Blood Urea Nitrogen 17 mg/dL (9-16); Calcium 9.4 mg/dL (8.4-10.2); Carbon Dioxide 28 mmol/L (22-29); Chloride 105 mmol/L (96-108); Estimated Glomerular Filt Rate > 60; Glucose Random 115 mg/dL (60-115); Potassium 4.5 mmol/L (3.3-5.1); Sodium 141 mmol/L (135-145); Total Protein 6.8 g/dL (6.5-8.0)
== END 2024-10-29 06:33 | disposition home or self-care (01) ==
LOC: HO.LAB 06:32
PROVIDERS: PCP Internal Medicine; Visit Provider Internal Medicine
DX: Z01.818 Encounter for other preprocedural examination (principal)
CPT/HCPCS: 36415; 80053; 85025

== ENCOUNTER 2024-11-08 07:27 | Day surgery (SDC) | payer MEDICARE, SELFPAY ==
[2024-10-28 14:19] VITALS: BMI 24.5
--- NOTE | 2024-11-04 12:45 | P.CONAN_ITS ---
Documented by User: Haley Bocanegra NP 11/04/24 12:49 HPI - Anesthesia Eval Consult details Narrative: 89yo M for Right Cataract Extraction IOL Insertion No previous cataract on record Eliquis for afib Follows [facility] Cardiology for CAD, afib - last visit 09/2024 - awaiting EP eval for possible ablation PMFSH Active Problems Active Problems: All Active Problems Pre-op evaluation (Acute) TSH elevation (Acute) Impacted cerumen of both ears (Acute) Tinea pedis (Acute) Syncopal episodes (Acute) CHF exacerbation (Acute) Paroxysmal atrial fibrillation (Acute) Arrhythmia (Acute) Chest pain (Acute) Iron deficiency anemia (Acute) COPD (chronic obstructive pulmonary disease) (Acute) Pulmonary hypertension (Acute) Diastolic dysfunction (Acute) Atherosclerotic cardiovascular disease (Acute) Essential hypertension (Acute) Hypercholesterolemia (Acute) Asthma (Acute) Coronary artery disease (Acute) Type 2 diabetes mellitus with hyperglycemia (Acute) Past Medical History Medical History History of cardioversion CAD (coronary artery disease) CEBALLOS (dyspnea on exertion) COPD (chronic obstructive pulmonary disease) Chest pain Atrial fibrillation with rapid ventricular response Hyperkalemia Atrial fibrillation and flutter Pulmonary hypertension Diastolic dysfunction Essential hypertension Atherosclerotic cardiovascular disease Hypercholesterolemia Iron deficiency anemia Vitamin D deficiency Diabetic neuropathy Left renal stone Asthma Coronary artery disease Type 2 diabetes mellitus with hyperglycemia Family History Family History Father CVD (cardiovascular disease) Myocardial infarction Mother Hypertension Heart disease Diabetes CVD (cardiovascular disease) Sister No problems noted. Sister Diabetes Family history of problems with anesthesia: No Surgical History Surgical History Hx of cardiac catheterization History of lymph node excision History of inguinal hernia repair History of appendectomy History of Problems with Anesthesia: No Social History Social History Household Members: Family Household Members Other:: son and grandchildren Housing: House Are you a primary animal care assistant to a significant other at home: No Do you presently have visiting nurse or other home services: No Alcohol intake: never Patient Tobacco Use Status: Former Tobacco user Tobacco use type: Cigarette Years Smoked: 50 e-Cigarette/Vaping Use: Never Used Second Hand Smoke Exposure: No Use of substances other than those prescribed or required for medical reasons: No Have you been hit, kicked, punched, or otherwise hurt by someone within the past year? If so, by whom?: No Spiritual Healthcare Practices: none Holiness Healthcare Practices: Jain Cultural Healthcare Practices: none Are you DNR?: No Advance Directives: No (son is primary contact) Advance Directives Information Provided: Yes (as above noted) Advance Directives on File: No Recently lost weight without trying: No Eating poorly because of decreased appetite: No Nutrition Risks: Surgical patient >75years Poor oral hygiene: No (full upper & lower denture) service: No Current occupational status: retired Cognitive needs: No Hearing needs: Yes Vision needs: Yes Meds Allergies Allergy/AdvReac Type Severity Reaction Status Date / Time lisinopril Allergy Unknown hyperkalemi Verified 11/08/24 08:34 a Home Medications ?Medication ?Instructions ?Recorded ?Confirmed ?Last Taken ?Type albuterol sulfate 90 mcg/actuation 2 puff inhalation Q6H PRN 10/06/20 10/28/24 Unknown History aerosol inhaler (ProAir HFA) Shortness Of Breath aspirin 81 mg tablet,delayed 81 mg PO DAILY 10/06/20 10/28/24 11/08/24 05:10 History release (Adult Low Dose Aspirin) cholecalciferol (vitamin D3) 25 25 mcg PO DAILY 05/21/23 10/28/24 08/21/23 06:00 History mcg (1,000 unit) capsule ferrous sulfate 325 mg (65 mg 325 mg PO DAILY 05/21/23 10/28/24 11/08/24 05:10 History iron) tablet Exam Height,Weight and Vital Signs: Height 5 ft 9 in Weight 75.41 kg Narrative Narrative: ECHO 04/2024 Conclusions: - The left ventricular systolic function is mildly decreased. The visually estimated ejection fraction is between 40-45%. - There is moderately decreased right ventricular systolic function. - No obvious valvular pathology seen on this study. Cardiac [id number] post RCA and PDA stenting; midcircumflex 60% stenosis; RKI-[id number]-moderate disease. Myocardial perfusion imaging study from 05/2022 without any clear ischemic findings or prior infarction. Assessment and Plan Assessment Anesthesia Assessment: Chart Reviewed Final Anesthetic Review Family History of Problems with Anesthesia: No History of Problems with Anesthesia: No Documented by User: Radha Sow MD 11/08/24 10:00 [facility] Past Medical History Medical History History of cardioversion CAD (coronary artery disease) CEBALLOS (dyspnea on exertion) COPD (chronic obstructive pulmonary disease) Chest pain Atrial fibrillation with rapid ventricular response Hyperkalemia Atrial fibrillation and flutter Pulmonary hypertension Diastolic dysfunction Essential hypertension Atherosclerotic cardiovascular disease Hypercholesterolemia Iron deficiency anemia Vitamin D deficiency Diabetic neuropathy Left renal stone Asthma Coronary artery disease Type 2 diabetes mellitus with hyperglycemia Family History Family History Father CVD (cardiovascular disease) Myocardial infarction Mother Hypertension Heart disease Diabetes CVD (cardiovascular disease) Sister No problems noted. Sister Diabetes Surgical History Surgical History Hx of cardiac catheterization History of lymph node excision History of inguinal hernia repair History of appendectomy Social History Social History Household Members: Family Household Members Other:: son and grandchildren Housing: House Are you a primary animal care assistant to a significant other at home: No Do you presently have visiting nurse or other home services: No Alcohol intake: never Patient Tobacco Use Status: Former Tobacco user Tobacco use type: Cigarette Years Smoked: 50 e-Cigarette/Vaping Use: Never Used Second Hand Smoke Exposure: No Use of substances other than those prescribed or required for medical reasons: No Have you been hit, kicked, punched, or otherwise hurt by someone within the past year? If so, by whom?: No Spiritual Healthcare Practices: none Holiness Healthcare Practices: Jain Cultural Healthcare Practices: none Are you DNR?: No Advance Directives: No (son is primary contact) Advance Directives Information Provided: Yes (as above noted) Advance Directives on File: No Recently lost weight without trying: No Eating poorly because of decreased appetite: No Nutrition Risks: Surgical patient >75years Poor oral hygiene: No (full upper & lower denture) service: No Current occupational status: retired Cognitive needs: No Hearing needs: Yes Vision needs: Yes Meds Allergies Allergy/AdvReac Type Severity Reaction Status Date / Time lisinopril Allergy Unknown hyperkalemi Verified 11/08/24 08:34 a Home Medications ?Medication ?Instructions ?Recorded ?Confirmed ?Last Taken ?Type albuterol sulfate 90 mcg/actuation 2 puff inhalation Q6H PRN 10/06/20 10/28/24 Unknown History aerosol inhaler (ProAir HFA) Shortness Of Breath aspirin 81 mg tablet,delayed 81 mg PO DAILY 10/06/20 10/28/24 11/08/24 05:10 History release (Adult Low Dose Aspirin) cholecalciferol (vitamin D3) 25 25 mcg PO DAILY 05/21/23 10/28/24 08/21/23 06:00 History mcg (1,000 unit) capsule ferrous sulfate 325 mg (65 mg 325 mg PO DAILY 05/21/23 10/28/24 11/08/24 05:10 History iron) tablet Exam Airway Mallampati Class: II (edentulous) TM Dist: >3cm Neck ROM: Limited Denture: Upper and Lower Loose/Missing/Broken Teeth: Yes, Upper and Lower Heart: RRR Lungs: CTA Assessment and Plan Assessment Anesthesia Assessment: Anesthesia Plan Discussed Final Anesthetic Review NPO: Yes ASA Class: III Final Preanesthetic Review: Meds/Allgs Chart Reviewed, Consent Obtained/Reviewed and Anes Risks/Benef Reviewed Patient Risk: Intermediate Procedure Risk: Low Anesthetic Plan Anesthetic Plan: MAC: Disposition: Standard PACU
[2024-11-08 08:45] VITALS: BP 146/92; PULSE 87; RESP 16; TEMP 36; O2SAT 97
[2024-11-08] MEDS: Tetracaine HCl/PF 0.5% Oph Sol 4 ML DROPS 1 DROP EYE-RIGHT (08:47)
[2024-11-08] MEDS: Cyclopentolate 1 % Ophth Sol 2 ML DRPBTL 1 DROP EYE-RIGHT ×3 (08:49→09:02)
[2024-11-08] MEDS: Tropicamide 1 % Ophth Sol 3 ML BTL 1 DROP EYE-RIGHT ×3 (08:50→09:03)
[2024-11-08] MEDS: Ketorolac Tromethamine 0.5% Op 10 ML DROPS 1 DROP EYE-RIGHT ×3 (08:52→09:04)
[2024-11-08] MEDS: Phenylephrine HCL 2.5% Oph SoL 2 ML BOTTLE 1 DROP EYE-RIGHT ×3 (08:54→09:05)
[2024-11-08] MEDS: Lactated Ringers 500 ML 50 ML IV (08:56)
--- NOTE | 2024-11-08 09:43 | HO.PNOPHT ---
Ophthalmology Procedure Procedure Date of Service: 11/08/24 Ophthalmology Viscoelastic: Healon Duet Dual Pack Pro Ophthalmology Lenses: Other ([id number] [id number]) Procedure Notes: PREOPERATIVE DIAGNOSIS: Decreased visual acuity right eye secondary to cataract POSTOPERATIVE DIAGNOSIS: Same PROCEDURE: Right cataract extraction with intraocular lens insertion SURGEON: Mckinley Carbajal M.D. ANESTHESIA: Topical/MAC ESTIMATED BLOOD LOSS: None COMPLICATIONS: None After obtaining informed consent, the patient was brought to the operating room suite and placed in the supine position. After adequate sedation per anesthesia, topical drops of Tetracaine were given to the right eye. The eye was then prepped and draped in the usual sterile fashion. The operating room microscope was then positioned over the operative eye and a lid speculum placed. A paracentesis was created. Viscoelastic was then instilled into the anterior chamber. A three plane incision was then created temporally, utilizing a 2.85 mm keratome. Capsulotomy forceps were then utilized to create a circular tear capsulotomy. Hydrodissection and hydrodelineation were carried out until adequate mobilization of the nucleus occurred. Phacoemulsification was then utilized to remove the dense central nucleus followed by removal of the cortical material utilizing the automated aspiration irrigation unit. Viscoelastic was instilled into the posterior capsular bag followed by placement of a posterior chamber intraocular lens without difficulty. The residual Viscoelastic was then removed utilizing the automated IA machine. The wound was checked and found to be watertight. The patient tolerated the procedure well and the lid speculum was removed. Intracameral injection of Vigamox 0.1 mL followed by a subtenon injection of Kenalog-40 0.2 mL were administered. The patient will be seen in the a.m.
--- NOTE | 2024-11-08 09:44 | MHC.SHP ---
Pre-Procedural Eval Section A - 24 Hr Update-Section A only Date of Service: 11/08/24 The patient is an INPATIENT: No Changes since office visit: No Cold of Flu in the past 2 weeks, No New Medical Problems, No Changes in Medication and No Patient answered all questions The patient has been examined within 24 hours of the surgical procedure. The History & Physical has been completed within 30 days and I have reviewed it.: Yes Section B - Complete if H&P > 30 days Chief Complaint: Age-related nuclear cataract, right eye Allergies: Allergies Allergy/AdvReac Type Severity Reaction Status Date / Time lisinopril Allergy Unknown hyperkalemi Verified 11/08/24 08:34 a Plan Diagnosis/Plan: Unchanged I have reviewed the history and physical and performed a pertinent physical examination on my patient. No changes have occurred unless specified. Time Spent With Patient Time: Total time managing care of this patient today ____ minutes.
[2024-11-08 10:18] VITALS: BP 141/93; PULSE 89; RESP 16; TEMP 36.1; O2SAT 100
== END 2024-11-08 10:28 | disposition home or self-care (01) ==
PROVIDERS: PCP Internal Medicine; Visit Provider Ophthalmology
PROC: (CPT 66984; principal; 2024-11-08 10:00)
DX: H25.11 Age-related nuclear cataract, right eye (principal); H52.4 Presbyopia; D31.31 Benign neoplasm of right choroid; H18.413 Arcus senilis, bilateral; I10 Essential (primary) hypertension; I48.91 Unspecified atrial fibrillation; E11.9 Type 2 diabetes mellitus without complications; E78.00 Pure hypercholesterolemia, unspecified; J44.9 Chronic obstructive pulmonary disease, unspecified; Z79.01 Long term (current) use of anticoagulants; Z79.51 Long term (current) use of inhaled steroids; Z79.899 Other long term (current) drug therapy; Z88.8 Allergy status to other drugs, medicaments and biological substances; Z87.891 Personal history of nicotine dependence; Z79.82 Long term (current) use of aspirin
CPT/HCPCS: 66984; J3010; J3301; V2788

== ENCOUNTER 2024-11-22 07:34 | Day surgery (SDC) | payer MEDICARE, SELFPAY ==
[2024-10-28 14:24] VITALS: BMI 24.5
[2024-11-22 08:34] VITALS: BP 155/102; PULSE 78; RESP 14; TEMP 36.4; O2SAT 98; BMI 23.9
[2024-11-22] MEDS: Tetracaine HCl/PF 0.5% Oph Sol 4 ML DROPS 1 DROP EYE-LEFT (08:42)
[2024-11-22] MEDS: Cyclopentolate 1 % Ophth Sol 2 ML DRPBTL 1 DROP EYE-LEFT ×3 (08:43→08:47)
[2024-11-22] MEDS: Tropicamide 1 % Ophth Sol 3 ML BTL 1 DROP EYE-LEFT ×2 (08:44→08:46)
[2024-11-22] MEDS: Ketorolac Tromethamine 0.5% Op 10 ML DROPS 1 DROP EYE-LEFT ×3 (08:45→08:48)
[2024-11-22] MEDS: Phenylephrine HCL 2.5% Oph SoL 2 ML BOTTLE 1 DROP EYE-LEFT ×2 (08:45→08:47)
[2024-11-22] MEDS: Lactated Ringers 500 ML 50 ML IV (08:49)
--- NOTE | 2024-11-22 08:55 | HO.ANESPROP2 ---
[facility] Active Problems Active Problems: All Active Problems Pre-op evaluation (Acute) TSH elevation (Acute) Impacted cerumen of both ears (Acute) Tinea pedis (Acute) Syncopal episodes (Acute) CHF exacerbation (Acute) Paroxysmal atrial fibrillation (Acute) Arrhythmia (Acute) Chest pain (Acute) Iron deficiency anemia (Acute) COPD (chronic obstructive pulmonary disease) (Acute) Pulmonary hypertension (Acute) Diastolic dysfunction (Acute) Atherosclerotic cardiovascular disease (Acute) Essential hypertension (Acute) Hypercholesterolemia (Acute) Asthma (Acute) Coronary artery disease (Acute) Type 2 diabetes mellitus with hyperglycemia (Acute) Past Medical History Medical History History of cardioversion CAD (coronary artery disease) CEBALLOS (dyspnea on exertion) COPD (chronic obstructive pulmonary disease) Chest pain Atrial fibrillation with rapid ventricular response Hyperkalemia Atrial fibrillation and flutter Pulmonary hypertension Diastolic dysfunction Essential hypertension Atherosclerotic cardiovascular disease Hypercholesterolemia Iron deficiency anemia Vitamin D deficiency Diabetic neuropathy Left renal stone Asthma Coronary artery disease Type 2 diabetes mellitus with hyperglycemia Family History Family History Father CVD (cardiovascular disease) Myocardial infarction Mother Hypertension Heart disease Diabetes CVD (cardiovascular disease) Sister No problems noted. Sister Diabetes Family history of problems with anesthesia: No Surgical History Surgical History Hx of cardiac catheterization History of lymph node excision History of inguinal hernia repair History of appendectomy History of Problems with Anesthesia: No Social History Social History Household Members: Family Household Members Other:: son and grandchildren Housing: House Are you a primary child care development specialist to a significant other at home: No Do you presently have visiting nurse or other home services: No Alcohol intake: never Patient Tobacco Use Status: Former Tobacco user Tobacco use type: Cigarette Years Smoked: 50 e-Cigarette/Vaping Use: Never Used Second Hand Smoke Exposure: No Use of substances other than those prescribed or required for medical reasons: No Have you been hit, kicked, punched, or otherwise hurt by someone within the past year? If so, by whom?: No Spiritual Healthcare Practices: none Church Healthcare Practices: Spiritism Cultural Healthcare Practices: none Are you DNR?: No Advance Directives: No (son is primary contact) Advance Directives Information Provided: Yes (as above noted) Advance Directives on File: No Recently lost weight without trying: No Eating poorly because of decreased appetite: No Nutrition Risks: Surgical patient >75years Poor oral hygiene: No (upper/lower full dentures) service: No Current occupational status: retired Cognitive needs: No Hearing needs: Yes Vision needs: Yes Meds Allergies Allergy/AdvReac Type Severity Reaction Status Date / Time lisinopril Allergy Unknown hyperkalemi Verified 11/08/24 08:34 a Active Medications: Current Medications Lactated Ringer's (Lr) 500 mls @ 50 mls/hr IV .Q10H LYNN Stop: 11/22/24 18:44 Last Admin: 11/22/24 08:49 Dose: 50 mls/hr Povidone Iodine (Povidone Iodine 5 % Ophth Soln 30 Ml Bottle) 1 appl EYE-LEFT PREOP PRN PRN Reason: Pre-Op Surgical Implant Prophy Home Medications ?Medication ?Instructions ?Recorded ?Confirmed ?Last Taken ?Type albuterol sulfate 90 mcg/actuation 2 puff inhalation Q6H PRN 10/06/20 10/28/24 Unknown History aerosol inhaler (ProAir HFA) Shortness Of Breath aspirin 81 mg tablet,delayed 81 mg PO DAILY 10/06/20 11/22/24 11/22/24 History release (Adult Low Dose Aspirin) cholecalciferol (vitamin D3) 25 25 mcg PO DAILY 05/21/23 11/22/24 11/22/24 History mcg (1,000 unit) capsule ferrous sulfate 325 mg (65 mg 325 mg PO DAILY 05/21/23 11/22/24 11/22/24 History iron) tablet Exam Height,Weight and Vital Signs: Height 5 ft 9 in Weight 73.482 kg Last Vital Signs Temp 97.6 F 11/22/24 08:34 Pulse 78 11/22/24 08:34 Resp 14 11/22/24 08:34 BP 155/102 H 11/22/24 08:34 Pulse Ox 98 11/22/24 08:34 Airway Mallampati Class: II TM Dist: >3cm Neck ROM: Full Denture: Upper and Lower Loose/Missing/Broken Teeth: Yes, Upper and Lower Heart: RRR Lungs: CTA Assessment and Plan Assessment Anesthesia Assessment: Anesthesia Plan Discussed and Chart Reviewed Final Anesthetic Review Family History of Problems with Anesthesia: No History of Problems with Anesthesia: No NPO: Yes ASA Class: III Final Preanesthetic Review: Meds/Allgs Chart Reviewed, Consent Obtained/Reviewed and Anes Risks/Benef Reviewed Patient Risk: Intermediate Procedure Risk: Low Anesthetic Plan Anesthetic Plan: MAC: Disposition: Standard PACU
--- NOTE | 2024-11-22 09:21 | MHC.SHP ---
Pre-Procedural Eval Section A - 24 Hr Update-Section A only Date of Service: 11/22/24 The patient is an INPATIENT: No Changes since office visit: No Cold of Flu in the past 2 weeks, No New Medical Problems, No Changes in Medication and No Patient answered all questions The patient has been examined within 24 hours of the surgical procedure. The History & Physical has been completed within 30 days and I have reviewed it.: Yes Section B - Complete if H&P > 30 days Chief Complaint: Age-related nuclear cataract, left eye Allergies: Allergies Allergy/AdvReac Type Severity Reaction Status Date / Time lisinopril Allergy Unknown hyperkalemi Verified 11/08/24 08:34 a Plan Diagnosis/Plan: Unchanged I have reviewed the history and physical and performed a pertinent physical examination on my patient. No changes have occurred unless specified. Time Spent With Patient Time: Total time managing care of this patient today ____ minutes.
--- NOTE | 2024-11-22 09:21 | HO.PNOPHT ---
Ophthalmology Procedure Procedure Date of Service: 11/22/24 Ophthalmology Viscoelastic: Healon Duet Dual Pack Pro Ophthalmology Lenses: Other ([id number]; 21) Procedure Notes: PREOPERATIVE DIAGNOSIS: Decreased visual acuity left eye secondary to cataract POSTOPERATIVE DIAGNOSIS: Same PROCEDURE: Left cataract extraction with toric multifocal intraocular lens insertion @ 180 ddegree SURGEON: Mckinley Carbajal M.D. ANESTHESIA: Topical/MAC ESTIMATED BLOOD LOSS: None COMPLICATIONS: None After obtaining informed consent, the patient was brought to the operation room suite and placed in the supine position. After adequate sedation per anesthesia, topical drops of Tetracaine were given to the left eye. The eye was then prepped and draped in the usual sterile fashion. The operating room microscope was then positioned over the operative eye and a lid speculum placed. A paracentesis was created. Viscoelastic was then instilled into the anterior chamber. A three plane incision was then created temporally, utilizing a 2.85 mm keratome. Capsulotomy forceps were then utilized to create a circular tear capsulotomy. Hydrodissection and hydrodelineation were carried out until adequate mobilization of the nucleus occurred. Phacoemulsification was then utilized to remove the dense central nucleus followed by removal of the cortical material utilizing the automated aspiration irrigation unit. Viscoat elastic was instilled into the posterior capsular bag followed by placement of a toric posterior chamber multifocal intraocular lens without difficulty. The residual Viscoat elastic was then removed utilizing the automated IA machine. The wound was check and found to be watertight. The patient tolerated the procedure well and the lid speculum was removed. Intracameral injection of Vigamox 0.1 mL followed by a subtenon injection of Kenalog-40 0.2 mL were administered. The patient will be seen in the a.m.
[2024-11-22 09:52] VITALS: BP 177/106; PULSE 86; RESP 18; TEMP 36.2; O2SAT 100
[2024-11-22 10:07] VITALS: BP 167/94; PULSE 85; RESP 18; TEMP 36; O2SAT 99
== END 2024-11-22 10:18 | disposition home or self-care (01) ==
PROVIDERS: PCP Internal Medicine; Visit Provider Ophthalmology
PROC: (CPT 66984; principal; 2024-11-22 09:30)
DX: H25.12 Age-related nuclear cataract, left eye (principal); H52.4 Presbyopia; I10 Essential (primary) hypertension; H18.413 Arcus senilis, bilateral; I48.91 Unspecified atrial fibrillation; E78.00 Pure hypercholesterolemia, unspecified; I25.10 Atherosclerotic heart disease of native coronary artery without angina pectoris; Z95.5 Presence of coronary angioplasty implant and graft; J44.9 Chronic obstructive pulmonary disease, unspecified; D50.9 Iron deficiency anemia, unspecified; E11.40 Type 2 diabetes mellitus with diabetic neuropathy, unspecified; Z79.01 Long term (current) use of anticoagulants; Z79.82 Long term (current) use of aspirin; Z79.899 Other long term (current) drug therapy; Z79.51 Long term (current) use of inhaled steroids; Z88.5 Allergy status to narcotic agent; Z98.890 Other specified postprocedural states; Z87.891 Personal history of nicotine dependence
CPT/HCPCS: 66984; J3010; J3301; V2787

== ENCOUNTER 2024-12-17 08:21 | Outpatient (AMB) | payer MEDICARE, SELFPAY ==
--- NOTE | 2024-12-17 08:32 | MHC.PC.OV ---
Vital Signs 12/17/24 08:33 Height 5 ft 9 in Weight 159 lb BMI 23.5 BP 134/72 Blood Pressure Location Lt brachial Position Sitting Pulse 82 Pulse Source Pulse Oximeter Pulse Oximetry (%) 97 Oxygen Delivery Method Room Air Intake Visit Reasons: a fib, cholesterol Allergies lisinopril Allergy (Unknown, Verified 12/17/24 08:33) hyperkalemia Tobacco use date assessed: 12/17/24 Fall risk assessment: No Falls in past year Last assessed Fall Risk: 12/17/24 Dental Screening Dental Screen Date: 12/17/24 Did you have a dental visit in the last 12 months?: Yes Did you have a dental problem in the last 6 months where you did not have access to dental care?: No Was dental information given to patient?: Patient has dentist HPI a fib, cholesterol HPI Details The patient is an 89-year-old male presenting with a follow-up visit for the management of chronic medical conditions, including diabetes mellitus, coronary artery disease, asthma, hypertension, hypercholesterolemia, chronic obstructive pulmonary disease, atrial fibrillation, congestive heart failure, and abnormal thyroid function. The patient was last seen on October 25, 2024, for a preoperative evaluation prior to cataract surgery, which was subsequently performed. Cardiology review on October 04, 2024, addressed the persistent atrial fibrillation, recommending a rate control strategy only. The patient?s last laboratory work was conducted on October 29, 2024, revealing normal blood count, no anemia, normal electrolyte levels, and normal renal function. The hemoglobin A1c was well-controlled at 6.5%, indicating stable diabetes management. Liver function tests were normal, while the last cholesterol screening conducted in June 2024 showed an LDL level of 80 mg/dL, which was noted as slightly elevated. The patient?s thyroid test was mildly elevated. Current management includes dietary control for diabetes, with an A1c goal of less than 7.0%, ongoing treatment with atorvastatin 80 mg daily for cholesterol management, targeting an LDL goal of less than 70 mg/dL and triglycerides less than 150 mg/dL. The patient's antihypertensive regimen comprises metoprolol 50 mg once daily. Asthma and COPD management involves the use of Qvar and albuterol. The patient remains on anticoagulation therapy as part of the atrial fibrillation management plan. On the 27 of November patient started having congestion cough shortness of breath. patient did not call and just treated this with [id number] medication patient did not feel better until last week. Patient still has some mild tiredness but better. Discussed with the patient on the need to call if there is a problem like that as we can have given him some treatment. Discussed the problems of having COVID-19 flu and RSV presently. And that we could have treated flu and COVID 19 with an antiviral. [facility] Medical History History of cardioversion CAD (coronary artery disease) CEBALLOS (dyspnea on exertion) COPD (chronic obstructive pulmonary disease) Chest pain Atrial fibrillation with rapid ventricular response Hyperkalemia Atrial fibrillation and flutter Pulmonary hypertension Diastolic dysfunction Essential hypertension Atherosclerotic cardiovascular disease Hypercholesterolemia Iron deficiency anemia Vitamin D deficiency Diabetic neuropathy Left renal stone Asthma Coronary artery disease Type 2 diabetes mellitus with hyperglycemia Surgical History Hx of cardiac catheterization History of lymph node excision History of inguinal hernia repair History of appendectomy Family History Father CVD (cardiovascular disease) Myocardial infarction Mother Hypertension Heart disease Diabetes CVD (cardiovascular disease) Sister No problems noted. Sister Diabetes Social History Household Members: Family Household Members Other:: son and grandchildren Housing: House Are you a primary senior resident care director to a significant other at home: No Do you presently have visiting nurse or other home services: No Alcohol intake: never Patient Tobacco Use Status: Former Tobacco user Tobacco use type: Cigarette Years Smoked: 50 e-Cigarette/Vaping Use: Never Used Second Hand Smoke Exposure: No service: No Current occupational status: retired Cognitive needs: No Hearing needs: Yes Vision needs: Yes Questionnaire PHQ-9 Over the last 2 weeks, how often have you been bothered by any of the following problems? 1. Little interest or pleasure in doing things: not at all 2. Feeling down, depressed, or hopeless: not at all 3. Trouble falling or staying asleep, or sleeping too much: not at all 4. Feeling tired or having little energy: not at all 5. Poor appetite or overeating: not at all 6. Feeling bad about yourself - or that you are a failure or have let yourself or your family down: not at all 7. Trouble concentrating on things, such as reading the newspaper or watching television: not at all 8. Moving or speaking so slowly that other people could have noticed. Or the opposite - being so fidgety or restless that you have been moving around a lot more than usual: not at all 9. Thoughts that you would be better off or of hurting yourself in some way: not at all Total score: 0 Depression Screening Interpretation: Negative Depression Screening Done: Yes Source: Developed by Drs. Adam Ennis, Mel Burch, Fortunato Richardson and colleagues, with an educational tamara from [employer]. Thrive Questionnaire Date Thrive assessed: 12/17/24 I am a: Patient What is your living situation today?: I have a steady place to live Within the past 12 months, did the food you bought not last and you didn't have the money to get more?: Never true Within the past 12 months, did you worry whether your food would run out before you got money to buy more?: Never true Do you have trouble paying for medicines?: No Do you have trouble getting transportation to medical appointments?: No Do you have trouble paying your heating and electricity bill?: No Do you have trouble taking care of your child, family member or friend?: No Do you have trouble with day-to-day activities such as bathing, preparing meals, shopping, managing finances, etc.?: No Are you currently unemployed and looking for a job?: No Are you interested in more education?: No Currently or been in a relationship where the following occur: No concerns reported THRIVE Score: 0 AUDIT C Alcohol Use Questionnaire (AUDIT-C) 3. How often do you have six or more drinks on one occasion?: Never Total Score: 0 ALEXANDRA-7 AMB Questionnaire ALEXANDRA-7 Date ALEXANDRA - 7 assessed: 12/17/24 Feeling nervous, anxious, or on edge: 0 = Not at all Not being able to stop or control worryin = Not at all Worrying too much about different things: 0 = Not at all Trouble relaxin = Not at all Being so restless that it is hard to sit still: 0 = Not at all Becoming easily annoyed or irritable: 0 = Not at all Feeling afraid as if something awful might happen: 0 = Not at all Total ALEXANDRA-7 score (0-4 normal; 5-9 mild; 10-14 moderate; 15-21 severe): 0 Source: Developed by Drs. Adam Ennis, Mel Burch, Fortunato Richardson and colleagues, with an educational tamara from [employer]. Physical exam (Primary Care) Vital Signs: Oxygen Delivery Method Room Air 12/17/24 08:33 BMI result Body Mass Index 23.5 Tobacco/Smoking Status: Tobacco use Status Tobacco use date assessed 10/25/24 10/25/24 14:46 Patient Tobacco Use Status Former Tobacco user 11/22/24 09:52 Tobacco use type Cigarette 10/28/24 14:24 e-Cigarette/Vaping Use Never Used 10/25/24 14:39 Depression Screening Interpretation: Negative Thrive Assessment: Date of Thrive Assessment Date Thrive assessed 10/25/24 10/25/24 14:46 Currently or been in a relationship where the following occur: No concerns reported Const General: alert; No acute distress Eyes Conjunctivae: conjunctivae normal Resp Auscultation: clear to auscultation bilaterally Cardio Other: Irregular rate and rhythm Rhythm: regular rhythm GI Inspection: Yes normal to inspection Extrem General: Yes normal to inspection and No edema Coding Level of Care Code Est Pt Level 4 (92296) Diagnoses Type 2 diabetes mellitus with hyperglycemia, without long-term current use of insulin E11.65 Diabetes mellitus group home insulin use: without local intermodal truck driver use Coronary artery disease involving [place] coronary artery of [place] heart without angina pectoris I25.10 Associated angina: without angina Coronary Disease-Associated Artery/Lesion type: [place] artery [place] vs. transplanted heart: [place] heart Hypercholesterolemia E78.00 Essential hypertension I10 COPD (chronic obstructive pulmonary disease) J44.9 Paroxysmal atrial fibrillation I48.0 History of cataract surgery Z98.49 Assessment & Plan Assessment & Plan (1) Type 2 diabetes mellitus with hyperglycemia: Comment: Dr. Franklin Code(s): E11.65 - Type 2 diabetes mellitus with hyperglycemia Category: Medical Qualifiers: Diabetes mellitus group home insulin use: without local intermodal truck driver use Qualified Code(s): E11.65 - Type 2 diabetes mellitus with hyperglycemia Plan: Decrease the amount of carbohydrate intake, pasta, bread, rice and potatoes are all sugar and that is aside from all the sweet stuff, remember that fruits are good but they are Sweet also. Hemoglobin A1c goal less than 7.0 patient is on diet control (2) Coronary artery disease: Comment: PTCA 1991 and 1998 stent placement April [address] Alvarado echo ejection fraction 60 65% grade 2 diastolic dysfunction March 2017, September 2017, November 2017 positive stress test echo December 2019 normal ejection fraction, May 2022 myocardial perfusion scan or Code(s): I25.10 - Atherosclerotic heart disease of [place] coronary artery without angina pectoris Category: Medical Qualifiers: Associated angina: without angina Coronary Disease-Associated Artery/Lesion type: [place] artery [place] vs. transplanted heart: [place] heart Qualified Code(s): I25.10 - Atherosclerotic heart disease of [place] coronary artery without angina pectoris Plan: Control the cholesterol, weight, blood pressure, diabetes continue with aspirin and anticoagulation. (3) Hypercholesterolemia: Code(s): E78.00 - Pure hypercholesterolemia, unspecified Category: Medical Plan: Avoid fried foods, chicken skin, eggs, butter margarine, pastries and meat. Be it pork or beef they have a lot of cholesterol LDL goal of less than 70 and triglyceride of less than 150 on atorvastatin 80 mg once a day. Blood work done showing LDL before still elevated. (4) Essential hypertension: Code(s): I10 - Essential (primary) hypertension Category: Medical Plan: Continue with blood pressure medication. Decrease salt intake and exercise presently on metoprolol 50 mg once a day (5) COPD (chronic obstructive pulmonary disease): Comment: DUE TO HIS PAST HISTORY OF SMOKING HE DOES HAVE SOME DEGREE OF CHRONIC OBSTRUCTIVE PULMONARY DISEASE WHICH IS NOT ACTIVE AT PRESENT. PLAN IS TO DO PULMONARY FUNCTION TEST AGAIN, AND THEN DECIDE IF HE WOULD NEED SOME MAINTENANCE REGIMEN TO IMPROVE HIS BREATHING. PATIENT WAS EDUCATED ABOUT ASTHMA, AND COPD. Code(s): J44.9 - Chronic obstructive pulmonary disease, unspecified Category: Medical Plan: Patient is on QVAR and albuterol. (6) Paroxysmal atrial fibrillation: Code(s): I48.0 - Paroxysmal atrial fibrillation Category: Medical Plan: Patient has met with Cardiology and has been decided to have rate control only and on metoprolol as well as anticoagulation (7) History of cataract surgery: Code(s): Z98.49 - Cataract extraction status, unspecified eye Category: Surgical Plan: doing good Plan 1. 0%. Maintain current diet control measures: - Continue cholesterol management with atorvastatin 80 mg daily, aiming for an LDL level of less than 70 mg/dL and triglycerides less than 150 mg/dL. - Maintain antihypertensive management using metoprolol 50 mg once daily. - Continue asthma and COPD management with Qvar and albuterol inhalers. - Adhere to the rate control strategy recommended by cardiology for atrial fibrillation, including continued use of metoprolol and anticoagulation therapy. - Monitor thyroid function closely given the noted elevation. Patient was informed and verbally consented to the use of an ambient scribe for clinic note documentation during this visit.
[2024-12-17 08:33] VITALS: BP 134/72; PULSE 82; O2SAT 97; BMI 23.5
== END 2024-12-17 08:52 | disposition home or self-care (01) ==
PROVIDERS: PCP Internal Medicine; Visit Provider Internal Medicine
DX: E11.65 Type 2 diabetes mellitus with hyperglycemia (principal); I25.10 Atherosclerotic heart disease of native coronary artery without angina pectoris; E78.00 Pure hypercholesterolemia, unspecified; I10 Essential (primary) hypertension; J44.9 Chronic obstructive pulmonary disease, unspecified; I48.0 Paroxysmal atrial fibrillation; Z98.49 Cataract extraction status, unspecified eye

== ENCOUNTER → 2024-12-17 08:21 | Outpatient (BNVA) | payer MEDICARE, SELFPAY | PROVIDERS: PCP Internal Medicine; Visit Provider Internal Medicine | DX: E11.65 Type 2 diabetes mellitus with hyperglycemia (principal); I25.10 Atherosclerotic heart disease of native coronary artery without angina pectoris; E78.00 Pure hypercholesterolemia, unspecified; I10 Essential (primary) hypertension; I48.0 Paroxysmal atrial fibrillation; J44.9 Chronic obstructive pulmonary disease, unspecified; Z98.49 Cataract extraction status, unspecified eye | CPT/HCPCS: 99212 ==

== ENCOUNTER 2025-01-06 07:28 | Outpatient (REF) | payer MEDICARE, SELFPAY ==
[2025-01-06 08:33] LABS: Cholesterol 133 mg/dL (<200); HDL Cholesterol 43 mg/dL (>40); LDL Cholesterol Calculated 63 mg/dL (<100); Triglycerides 138 mg/dL (<150)
[2025-01-06 08:47] LABS: Free T4 (Free Thyroxine) 1.22 ng/dL (0.71-1.85); Thyroid Stimulating Hormone 2.13 uIU/mL (0.32-4.0)
== END 2025-01-06 07:29 | disposition home or self-care (01) ==
LOC: HO.LAB 07:28
PROVIDERS: PCP Internal Medicine; Visit Provider Internal Medicine
DX: I25.10 Atherosclerotic heart disease of native coronary artery without angina pectoris (principal); E78.00 Pure hypercholesterolemia, unspecified
CPT/HCPCS: 36415; 80061; 84439; 84443

== ENCOUNTER 2025-02-03 12:36 | Outpatient (AMB) | payer MEDICARE, SELFPAY ==
[2025-02-03 12:43] VITALS: BP 130/80; PULSE 100; BMI 23.4
--- NOTE | 2025-02-03 12:43 | MHC.OFFVIS ---
Vital Signs 02/03/25 12:43 Height 5 ft 9 in Weight 158 lb 11.725 oz BMI 23.4 BP 130/80 Blood Pressure Location Lt brachial Position Sitting Pulse 100 Pulse Source Monitor Intake Visit Reasons: 4 month f/up Allergies lisinopril Allergy (Unknown, Verified 12/17/24 08:33) hyperkalemia Medication List - Last Reconciled 02/03/25 by Tayo Harley MD albuterol sulfate 90 mcg/actuation (ProAir HFA) 2 puffs inhalation Q6H PRN apixaban (Eliquis) 5 mg PO BID 90 days aspirin (Adult Low Dose Aspirin) 81 mg PO DAILY atorvastatin 80 mg PO DAILY beclomethasone dipropionate 80 mcg/actuation (Qvar RediHaler) 1 inh inhalation Q12H cholecalciferol (vitamin D3) 25 mcg PO DAILY ferrous sulfate 325 mg PO DAILY metoprolol succinate ER (Toprol XL) 50 mg PO DAILY HPI Comments Details: Juan returns for follow-up. In 2021, he had atrial fibrillation with rapid rate. Subsequently, underwent SUKUMAR and cardioversion. He was then put on Multaq. He was in sinus for a while but then went back into atrial fibrillation and had symptoms from the same. Hence had one further cardioversion in August 2023. Then put on amiodarone. After a while, again reverted to atrial fibrillation. At that time, Amiodarone was stopped and he was just left on rate control medications. Over time, he went back into atrial fibrillation. No overt symptoms apart from some shortness of breath but LVEF at gone into the 40s. Then sent to EP for evaluation. However, felt to be a candidate for only medical management or not ablation. Today, he states he feels generally okay. No new concerns. [facility] Medical History History of cardioversion CAD (coronary artery disease) CEBALLOS (dyspnea on exertion) COPD (chronic obstructive pulmonary disease) Chest pain Atrial fibrillation with rapid ventricular response Hyperkalemia Atrial fibrillation and flutter Pulmonary hypertension Diastolic dysfunction Essential hypertension Atherosclerotic cardiovascular disease Hypercholesterolemia Iron deficiency anemia Vitamin D deficiency Diabetic neuropathy Left renal stone Asthma Coronary artery disease Type 2 diabetes mellitus with hyperglycemia Surgical History Hx of cardiac catheterization History of lymph node excision History of inguinal hernia repair History of appendectomy Family History Father CVD (cardiovascular disease) Myocardial infarction Mother Hypertension Heart disease Diabetes CVD (cardiovascular disease) Sister No problems noted. Sister Diabetes Social History Household Members: Family Household Members Other:: son and grandchildren Housing: House Are you a primary outdoor emergency care technician to a significant other at home: No Do you presently have visiting nurse or other home services: No Alcohol intake: never Patient Tobacco Use Status: Former Tobacco user Tobacco use type: Cigarette Years Smoked: 50 e-Cigarette/Vaping Use: Never Used Second Hand Smoke Exposure: No service: No Current occupational status: retired Cognitive needs: No Hearing needs: Yes Vision needs: Yes Review of Systems Const Denies weakness ENT Denies dizziness Card Denies chest pain, Denies chest pain with activity, Denies syncope, Denies rapid heart rate, Denies pedal edema, Denies edema, Denies leg edema, Denies lightheadedness, Denies palpitations, Denies dyspnea, Denies dyspnea on exertion and Denies orthopnea Resp Denies cough, Denies dyspnea and Denies dyspnea on exertion GI Denies hematochezia and Denies change in stool character Musc Denies abnormal gait, Denies muscle cramps, Denies muscle weakness, Denies numbness, Denies radiating pain into limb and Denies tingling Neuro Denies abnormal gait, Denies dizziness, Denies syncope, Denies numbness, Denies tingling and Denies weakness Endo Denies palpitations Physical Exam Vital Signs: Last Vital Signs Pulse 100 02/03/25 12:43 BP 130/80 02/03/25 12:43 BMI result Body Mass Index 23.4 Const General: comfortable and no acute distress Orientation/consciousness: patient oriented x3 HEENT Other: Unremarkable Head: Yes normal to inspection Neck Neck: Yes normal visual inspection Chest Chest palpation & inspection: normal inspection of the chest Resp Auscultation: rhonchi and diminished lung sounds Cardio Palpation: normal PMI Heart sounds: S1 normal heart sound present, S2 normal heart sound present, no gallops, no murmurs and no rubs GI Palpation (GI): Soft to palpation Back/Spine/Pelvis Other: unremarkable Skin General skin exam: no rashes or lesions noted Neuro General: patient oriented x3 Extrem General: Yes normal to inspection Psych Mental Status: mental status grossly normal Office Procedures EKG Details: EKG with atrial fibrillation at a rate of 100/Min; nonspecific ST-T changes; PVC versus aberrant conduction. [id number], Complete Assessment & Plan Assessment & Plan (1) Persistent atrial fibrillation: Code(s): I48.19 - Other persistent atrial fibrillation Category: Medical Plan: Status post cardioversion x2. In spite of being on amiodarone, he is back in atrial fibrillation. Has seen EP. Not a candidate for ablation. Continue rate control with beta-blockers. Continue Eliquis. We will recheck Holter in 6 months. (2) Cardiomyopathy: Code(s): I42.9 - Cardiomyopathy, unspecified Category: Medical Plan: LVEF on the last echocardiogram 40-45%. Could be related to atrial fibrillation. Could also be related to underlying coronary disease. (3) Atherosclerotic cardiovascular disease: Code(s): I25.10 - Atherosclerotic heart disease of [place] coronary artery without angina pectoris Category: Medical Plan: Cardiac [id number] post RCA and PDA stenting; midcircumflex 60% stenosis; MBQ-vxmu-su-moderate disease. Myocardial perfusion imaging study from 05/2022 without any clear ischemic findings or prior infarction. Continue beta-blockers, statins. Last LDL 63 mg/dL. (4) Essential hypertension: Code(s): I10 - Essential (primary) hypertension Category: Medical Plan: Stable. Orders: Orders CA echo transthoracic complete 6 Months I42.9 - Cardiomyopathy, unspecified ECG 3 day holter monitor 6 Months I48.19 - Other persistent atrial fibrillation Coding Level of Care Code Est Pt Level 4 (53109) Complex EM visit Add On G2211 Diagnoses Persistent atrial fibrillation I48.19 Cardiomyopathy I42.9 Atherosclerotic cardiovascular disease I25.10 Essential hypertension I10 CPT Codes EKG - CPT: 48430-[id number], Complete ([id number])
== END 2025-02-03 13:01 | disposition home or self-care (01) ==
PROVIDERS: PCP Internal Medicine; Visit Provider Internal Medicine
DX: I48.19 Other persistent atrial fibrillation (principal); I42.9 Cardiomyopathy, unspecified; I25.10 Atherosclerotic heart disease of native coronary artery without angina pectoris; I10 Essential (primary) hypertension
CPT/HCPCS: 93010; 99214; G2211

== ENCOUNTER → 2025-02-03 12:36 | Outpatient (BNVA) | payer MEDICARE, SELFPAY | PROVIDERS: PCP Internal Medicine; Visit Provider Internal Medicine | DX: I48.19 Other persistent atrial fibrillation (principal); I42.9 Cardiomyopathy, unspecified; I25.10 Atherosclerotic heart disease of native coronary artery without angina pectoris; I10 Essential (primary) hypertension | CPT/HCPCS: 93005; 99212 ==

== ENCOUNTER 2025-03-24 08:12 | Outpatient (AMB) | payer MEDICARE, SELFPAY ==
[2025-03-24 08:14] VITALS: BP 142/88; PULSE 87; O2SAT 95; BMI 23.5
--- NOTE | 2025-03-24 08:14 | A.OFFPC_ITS ---
Vital Signs 03/24/25 08:14 03/24/25 08:54 Height 5 ft 9 in Weight 159 lb BMI 23.5 BP 142/88 H 138/80 Blood Pressure Location Lt brachial Lt brachial Position Sitting Sitting Pulse 87 Pulse Source Pulse Oximeter Pulse Oximetry (%) 95 Oxygen Delivery Method Room Air Intake Visit Reasons: A fib Allergies lisinopril Allergy (Unknown, Verified 03/24/25 08:15) hyperkalemia Tobacco use date assessed: 12/17/24 Fall risk assessment: 1 Fall in past year Last assessed Fall Risk: 03/24/25 Dental Screening Dental Screen Date: 12/17/24 HPI A fib HPI Details fall last week at home - [facility] Medical History (Updated 03/24/25 @ 08:42 by Layne Kimball MD) Asthma Iron deficiency anemia Chest pain Arrhythmia Tinea pedis Pre-op evaluation TSH elevation Impacted cerumen of both ears Syncopal episodes CHF exacerbation Paroxysmal atrial fibrillation History of cardioversion CAD (coronary artery disease) CEBALLOS (dyspnea on exertion) COPD (chronic obstructive pulmonary disease) Chest pain Atrial fibrillation with rapid ventricular response Hyperkalemia Atrial fibrillation and flutter Pulmonary hypertension Diastolic dysfunction Essential hypertension Atherosclerotic cardiovascular disease Hypercholesterolemia Iron deficiency anemia Vitamin D deficiency Diabetic neuropathy Left renal stone Coronary artery disease Type 2 diabetes mellitus with hyperglycemia Surgical History (Updated 03/24/25 @ 08:42 by Layne Kimball MD) History of cataract surgery Hx of cardiac catheterization History of lymph node excision History of inguinal hernia repair History of appendectomy Family History Father CVD (cardiovascular disease) Myocardial infarction Mother Hypertension Heart disease Diabetes CVD (cardiovascular disease) Sister No problems noted. Sister Diabetes Social History Household Members: Family Household Members Other:: son and grandchildren Housing: House Are you a primary special needs child caregiver to a significant other at home: No Do you presently have visiting nurse or other home services: No Alcohol intake: never Patient Tobacco Use Status: Former Tobacco user Tobacco use type: Cigarette Years Smoked: 50 e-Cigarette/Vaping Use: Never Used Second Hand Smoke Exposure: No service: No Current occupational status: retired Cognitive needs: No Hearing needs: Yes Vision needs: Yes Questionnaire PHQ-9 Over the last 2 weeks, how often have you been bothered by any of the following problems? 1. Little interest or pleasure in doing things: not at all 2. Feeling down, depressed, or hopeless: not at all 3. Trouble falling or staying asleep, or sleeping too much: not at all 4. Feeling tired or having little energy: not at all 5. Poor appetite or overeating: not at all 6. Feeling bad about yourself - or that you are a failure or have let yourself or your family down: not at all 7. Trouble concentrating on things, such as reading the newspaper or watching television: not at all 8. Moving or speaking so slowly that other people could have noticed. Or the opposite - being so fidgety or restless that you have been moving around a lot more than usual: not at all 9. Thoughts that you would be better off or of hurting yourself in some way: not at all Total score: 0 Depression Screening Interpretation: Negative Depression Screening Done: Yes Source: Developed by Drs. Adam Ennis, Mel Burch, Fortunato Richardson and colleagues, with an educational tamara from [employer]. Thrive Questionnaire Date Thrive assessed: 12/17/24 I am a: Patient What is your living situation today?: I have a steady place to live Within the past 12 months, did the food you bought not last and you didn't have the money to get more?: Never true Within the past 12 months, did you worry whether your food would run out before you got money to buy more?: Never true Do you have trouble paying for medicines?: No Do you have trouble getting transportation to medical appointments?: No Do you have trouble paying your heating and electricity bill?: No Do you have trouble taking care of your child, family member or friend?: No Do you have trouble with day-to-day activities such as bathing, preparing meals, shopping, managing finances, etc.?: No Are you currently unemployed and looking for a job?: No Are you interested in more education?: No Please select the resources that you would like help with: None Currently or been in a relationship where the following occur: No concerns reported THRIVE Score: 0 AUDIT C Alcohol Use Questionnaire (AUDIT-C) 1. How often do you have a drink containing alcohol?: Never Total Score: 0 ALEXANDRA-7 AMB Questionnaire ALEXANDRA-7 Date ALEXANDRA - 7 assessed: 12/17/24 Feeling nervous, anxious, or on edge: 0 = Not at all Not being able to stop or control worryin = Not at all Worrying too much about different things: 0 = Not at all Trouble relaxin = Not at all Being so restless that it is hard to sit still: 0 = Not at all Becoming easily annoyed or irritable: 0 = Not at all Feeling afraid as if something awful might happen: 0 = Not at all Total ALEXANDRA-7 score (0-4 normal; 5-9 mild; 10-14 moderate; 15-21 severe): 0 Source: Developed by Drs. Adam Ennis, Mel Burch, Fortunato Richardson and colleagues, with an educational tamara from [employer]. Physical exam (Primary Care) Vital Signs: Last Vital Signs Pulse 87 03/24/25 08:14 BP 142/88 H 03/24/25 08:14 Pulse Ox 95 03/24/25 08:14 Oxygen Delivery Method Room Air 03/24/25 08:14 BMI result Body Mass Index 23.5 Tobacco/Smoking Status: Tobacco use Status Tobacco use date assessed 12/17/24 03/24/25 08:20 Patient Tobacco Use Status Former Tobacco user 03/24/25 08:20 Tobacco use type Cigarette 03/24/25 08:20 e-Cigarette/Vaping Use Never Used 03/24/25 08:20 PHQ-9: PHQ-9 Score PHQ-9: Total score 0 03/24/25 08:21 Depression Screening Interpretation: Negative Thrive Assessment: Date of Thrive Assessment Date Thrive assessed 12/17/24 03/24/25 08:20 Currently or been in a relationship where the following occur: No concerns reported Const General: alert; No acute distress Eyes Conjunctivae: conjunctivae normal Resp Auscultation: clear to auscultation bilaterally Cardio Rate: regular rate Rhythm: regular rhythm GI Inspection: Yes normal to inspection Extrem General: Yes normal to inspection and No edema Coding Level of Care Code Est Pt Level 4 (79807) Complex EM visit Add On G2211 Diagnoses Persistent atrial fibrillation I48.19 Cardiomyopathy I42.9 Type 2 diabetes mellitus with hyperglycemia, without long-term current use of insulin E11.65 Diabetes mellitus long term care administrator insulin use: without long term care administrator use Coronary artery disease involving [place] coronary artery of [place] heart without angina pectoris I25.10 Coronary Disease-Associated Artery/Lesion type: [place] artery [place] vs. transplanted heart: [place] heart Associated angina: without angina Hypercholesterolemia E78.00 Essential hypertension I10 COPD (chronic obstructive pulmonary disease) J44.9 Assessment & Plan Assessment & Plan (1) Persistent atrial fibrillation: Comment: Two cardioversions with amiodarone and Multaq failure Code(s): I48.19 - Other persistent atrial fibrillation Category: Medical Plan: Medical management continue with anticoagulation with Eliquis will need blood work and metoprolol 50 mg once a (2) Cardiomyopathy: Code(s): I42.9 - Cardiomyopathy, unspecified Category: Medical Plan: Continuing surveillance with echocardiogram (3) Type 2 diabetes mellitus with hyperglycemia: Comment: Dr. Franklin Code(s): E11.65 - Type 2 diabetes mellitus with hyperglycemia Category: Medical Qualifiers: Diabetes mellitus long term care administrator insulin use: without long-term use Qualified Code(s): E11.65 - Type 2 diabetes mellitus with hyperglycemia Plan: Decrease the amount of carbohydrate intake, pasta, bread, rice and potatoes are all sugar and that is aside from all the sweet stuff, remember that fruits are good but they are Sweet also. Hemoglobin A1c goal of less than 7.0 diet controlled (4) Coronary artery disease: Comment: PTCA 1991 and 1998 stent placement April [address] Alvarado echo ejection fraction 60 65% grade 2 diastolic dysfunction March 2017, September 2017, November 2017 positive stress test echo December 2019 normal ejection fraction, May 2022 myocardial perfusion scan or Code(s): I25.10 - Atherosclerotic heart disease of [place] coronary artery without angina pectoris Category: Medical Qualifiers: Coronary Disease-Associated Artery/Lesion type: [place] artery [place] vs. transplanted heart: [place] heart Associated angina: without angina Qualified Code(s): I25.10 - Atherosclerotic heart disease of [place] coronary artery without angina pectoris Plan: Control the cholesterol, weight, blood pressure, diabetes on anticoagulation (5) Hypercholesterolemia: Code(s): E78.00 - Pure hypercholesterolemia, unspecified Category: Medical Plan: Avoid fried foods, chicken skin, eggs, butter margarine, pastries and meat. Be it pork or beef they have a lot of cholesterol LDL goal of less than 70 and triglyceride of less than 150 on atorvastatin 80 mg once a day January 2025 last blood (6) Essential hypertension: Code(s): I10 - Essential (primary) hypertension Category: Medical Plan: Continue with blood pressure medication. Decrease salt intake and exercise metoprolol 50 mg once a day (7) COPD (chronic obstructive pulmonary disease): Comment: DUE TO HIS PAST HISTORY OF SMOKING HE DOES HAVE SOME DEGREE OF CHRONIC OBSTRUCTIVE PULMONARY DISEASE WHICH IS NOT ACTIVE AT PRESENT. PLAN IS TO DO PULMONARY FUNCTION TEST AGAIN, AND THEN DECIDE IF HE WOULD NEED SOME MAINTENANCE REGIMEN TO IMPROVE HIS BREATHING. PATIENT WAS EDUCATED ABOUT ASTHMA, AND COPD. Code(s): J44.9 - Chronic obstructive pulmonary disease, unspecified Category: Medical Plan: Continuing with albuterol as needed Plan History of Present Illness The patient is an 89-year-old male presenting with a follow-up visit to address multiple chronic conditions and discuss a recent fall. He has a significant medical history, including diabetes mellitus, controlled coronary artery disease, asthma, hypercholesterolemia, hypertension, chronic obstructive pulmonary disease (COPD), and atrial fibrillation. Management challenges include unsuccessful trials with antiarrhythmic agents such as Multaq and amiodarone, inadequate symptom relief for atrial fibrillation, and heart monitoring showing an ejection fraction of 40-45%. Recent blood work results were within normal ranges, with LDL levels also optimal following a test in January 2025. The patient is on metoprolol and albuterol inhalers, the latter used daily despite reported absence of perceived dyspnea, though shortness of breath is clinically noted. The discussion included a history of falling at home due to perceived weakness, with recommended knee support devices and further monitoring. The patient?s overall health maintenance involves an active lifestyle, careful medication adherence, and dietary management especially for diabetes, maintaining an A1c goal under 7.0%. Current medications are metoprolol, atorvastatin, Qvar inhaler, albuterol, and Eliquis for anticoagulation. Regular echocardiogram monitoring and blood work are emphasized due to existing conditions and medication influences. Health Maintenance - Blood pressure management with home monitoring. - Diabetes management with diet control, maintaining HgA1c below 7.0%. - Hypercholesterolemia management with statin therapy aiming for LDL less than 70 mg/dL. - COPD management with daily inhaler usage surveillance and potential intensification if symptoms escalate. - Cardiology consults for recurrent atrial fibrillation and follow-up echocardiographic assessments. - Fall risk assessment and interventions, including potential use of knee braces. - Kidney function monitoring due to Eliquis therapy. Social History - Reports an active lifestyle despite chronic conditions. - Details a recent episode of a fall at home underscoring the importance of environmental safety. - Engagement in self-care, adept at monitoring personal health conditions. Review of Systems - Cardiovascular: Denies chest pain. Reports history of atrial fibrillation. - Respiratory: Reports daily use of albuterol. Denies dyspnea. - Musculoskeletal: Reports recent fall and feels knee weakness. - Neurological: Denies syncope. - General: Reports stable weight. Physical Exam Results - Labs: Normal blood count, electrolytes, creatinine levels, and liver function tests as of October 26, 2024. LDL level of 63 mg/dL as of January 2025. - Echocardiogram indicating low ejection fraction (40-45%). Plan 1. 0%. COPD monitoring includes the use of Qvar, with escalation advisement if respiratory symptoms persist. Regarding fall prevention, environmental risk reduction and supportive devices like knee braces are considered. Further laboratory work before the next visit will assess renal function, impacted by Eliquis administration.: Patient was informed and verbally consented to the use of an ambient scribe for clinic note documentation during this visit. Discussion Notes I discussed with the patient the importance of continued monitoring for his chronic conditions, particularly emphasizing the potential health implications of his reduced ejection fraction and frequent falls. We reviewed his medication regimen thoroughly, including his use of Eliquis for anticoagulation. We discussed the importance of consistent inhaler use for his COPD and the potential adjustments if symptoms worsen. The patient was advised of the next steps in laboratory evaluations to include renal function tests before his subsequent appointment. We also addressed the risks involved with his current medications, with benefits outweighing the risks per detailed conversation. Regarding his falls, the utility of knee support devices or further evaluations was highlighted as part of preventative care. Patient Instructions - Continue current medications as prescribed: Metoprolol, Atorvastatin, Eliquis, Qvar inhaler. - Monitor blood pressure regularly at home. - Perform blood work for renal function before your next visit. - Stay active, but avoid overexertion; consider environmental modifications to prevent falls. - Use the albuterol inhaler only as needed, and inform us if needing it more frequently. - Use knee support if you experience weakness, and ensure home safety to prevent falls. - Stay well-hydrated and maintain a balanced diet to manage diabetes. - Return for follow-up in three months or sooner if concerns arise. Orders: Orders Free T4 (Free Thyroxine) 3 Months I48.19 - Other persistent atrial fibrillation Thyroid Stimulating Hormone 3 Months I48.19 - Other persistent atrial fibrillation Complete Blood Count Auto Diff 3 Months I48.19 - Other persistent atrial fibrillation Comprehensive Met. Panel 3 Months I48.19 - Other persistent atrial fibrillation Lipid Panel 3 Months E78.00 - Pure hypercholesterolemia, unspecified, I48.19 - Other persistent atrial fibrillation Vitamin B12 and Folate 3 Months I48.19 - Other persistent atrial fibrillation Microalbumin, Random (w Creat) 3 Months E11.65 - Type 2 diabetes mellitus with hyperglycemia Creatinine Urine 3 Months E11.65 - Type 2 diabetes mellitus with hyperglycemia Hemoglobin A1c 3 Months E11.65 - Type 2 diabetes mellitus with hyperglycemia
[2025-03-24 08:54] VITALS: BP 138/80
== END 2025-03-24 09:01 | disposition home or self-care (01) ==
LOC: HO.HMCH 08:13
PROVIDERS: PCP Internal Medicine; Visit Provider Internal Medicine
DX: I48.19 Other persistent atrial fibrillation (principal); I42.9 Cardiomyopathy, unspecified; E11.65 Type 2 diabetes mellitus with hyperglycemia; J44.9 Chronic obstructive pulmonary disease, unspecified; I25.10 Atherosclerotic heart disease of native coronary artery without angina pectoris; E78.00 Pure hypercholesterolemia, unspecified; I10 Essential (primary) hypertension

== ENCOUNTER → 2025-03-24 08:12 | Outpatient (BNVA) | payer MEDICARE, SELFPAY | PROVIDERS: PCP Internal Medicine; Visit Provider Internal Medicine | DX: I48.19 Other persistent atrial fibrillation (principal); I42.9 Cardiomyopathy, unspecified; E11.65 Type 2 diabetes mellitus with hyperglycemia; I25.10 Atherosclerotic heart disease of native coronary artery without angina pectoris; E78.00 Pure hypercholesterolemia, unspecified; I10 Essential (primary) hypertension; J44.9 Chronic obstructive pulmonary disease, unspecified | CPT/HCPCS: 99212 ==

== ENCOUNTER 2025-04-05 11:04 | Outpatient (REF) | payer SELFPAY | END 2025-04-05 11:05 | disposition home or self-care (01) | LOC: HO.HAP 11:04 | PROVIDERS: Visit Provider Internal Medicine | DX: Z46.1 Encounter for fitting and adjustment of hearing aid (principal); H90.3 Sensorineural hearing loss, bilateral | CPT/HCPCS: V5267 ==

== ENCOUNTER 2025-07-22 08:13 | Outpatient (AMB) | payer MEDICARE, SELFPAY ==
--- NOTE | 2025-07-22 08:18 | A.OFFPC_ITS ---
Vital Signs 07/22/25 08:19 Height 5 ft 9 in Weight 158 lb BMI 23.3 BP 132/70 Blood Pressure Location Lt brachial Position Sitting Pulse 52 Pulse Source Pulse Oximeter Temp 96.9 F Temp Source Temporal Artery Scan Pulse Oximetry (%) 96 Oxygen Delivery Method Room Air Intake Visit Reasons: A fib, DM Intake Note: Patient is here to follow up on Afib, DM. Cephalometric Tracer Required: No Convenience Store Manager: Not Required per policy Accompanied by: Self / Same As Patient Allergies lisinopril Allergy (Unknown, Verified 07/22/25 08:19) hyperkalemia Tobacco use date assessed: 07/22/25 Fall risk assessment: No Falls in past year Last assessed Fall Risk: 07/22/25 Dental Screening Dental Screen Date: 12/17/24 HPI A fib, DM HPI Details R arm pain 2 week no falls or trauma. no redness, PFSH Medical History (Updated 03/24/25 @ 08:42 by Layne Kimball MD) Asthma Iron deficiency anemia Chest pain Arrhythmia Tinea pedis Pre-op evaluation TSH elevation Impacted cerumen of both ears Syncopal episodes CHF exacerbation Paroxysmal atrial fibrillation History of cardioversion CAD (coronary artery disease) CEBALLOS (dyspnea on exertion) COPD (chronic obstructive pulmonary disease) Chest pain Atrial fibrillation with rapid ventricular response Hyperkalemia Atrial fibrillation and flutter Pulmonary hypertension Diastolic dysfunction Essential hypertension Atherosclerotic cardiovascular disease Hypercholesterolemia Iron deficiency anemia Vitamin D deficiency Diabetic neuropathy Left renal stone Coronary artery disease Type 2 diabetes mellitus with hyperglycemia Surgical History History of cataract surgery Hx of cardiac catheterization History of lymph node excision History of inguinal hernia repair History of appendectomy Family History Father CVD (cardiovascular disease) Myocardial infarction Mother Hypertension Heart disease Diabetes CVD (cardiovascular disease) Sister No problems noted. Sister Diabetes Social History Household Members: Family Household Members Other:: son and grandchildren Housing: House Are you a primary home care provider to a significant other at home: No Do you presently have visiting nurse or other home services: No Alcohol intake: never Patient Tobacco Use Status: Former Tobacco user Tobacco use type: Cigarette Years Smoked: 50 e-Cigarette/Vaping Use: Never Used Second Hand Smoke Exposure: Yes service: No Current occupational status: retired Cognitive needs: No Hearing needs: Yes Vision needs: Yes Questionnaire Thrive Questionnaire Date Thrive assessed: 03/24/25 I am a: Patient What is your living situation today?: I have a steady place to live Within the past 12 months, did the food you bought not last and you didn't have the money to get more?: Never true Within the past 12 months, did you worry whether your food would run out before you got money to buy more?: Never true Do you have trouble paying for medicines?: No Do you have trouble getting transportation to medical appointments?: No Do you have trouble paying your heating and electricity bill?: No Do you have trouble taking care of your child, family member or friend?: No Do you have trouble with day-to-day activities such as bathing, preparing meals, shopping, managing finances, etc.?: No Are you currently unemployed and looking for a job?: No Are you interested in more education?: No Please select the resources that you would like help with: None Currently or been in a relationship where the following occur: No concerns reported THRIVE Score: 0 ALEXANDRA-7 AMB Questionnaire ALEXANDRA-7 Date ALEXANDRA - 7 assessed: 12/17/24 Source: Developed by Drs. Adam Ennis, Mel Burch, Fortunato Richardson and colleagues, with an educational tamara from [employer]. Physical exam (Primary Care) Vital Signs: Last Vital Signs Temp 96.9 F 07/22/25 08:19 Pulse 52 07/22/25 08:19 BP 132/70 07/22/25 08:19 Pulse Ox 96 07/22/25 08:19 Oxygen Delivery Method Room Air 07/22/25 08:19 BMI result Body Mass Index 23.3 Tobacco/Smoking Status: Tobacco use Status Tobacco use date assessed 07/22/25 07/22/25 08:24 Patient Tobacco Use Status Former Tobacco user 07/22/25 08:24 Tobacco use type Cigarette 07/22/25 08:24 e-Cigarette/Vaping Use Never Used 07/22/25 08:24 Thrive Assessment: Date of Thrive Assessment Date Thrive assessed 03/24/25 07/22/25 08:24 Currently or been in a relationship where the following occur: No concerns reported Const General: alert; No acute distress Eyes Conjunctivae: conjunctivae normal Resp Auscultation: clear to auscultation bilaterally Cardio Rate: regular rate Rhythm: regular rhythm GI Inspection: Yes normal to inspection Extrem General: Yes normal to inspection and No edema Coding Level of Care Code Est Pt Level 4 (55002) Complex EM visit Add On G2211 Diagnoses Type 2 diabetes mellitus with hyperglycemia, without long-term current use of insulin E11.65 Diabetes mellitus rodent exterminator insulin use: without rodent exterminator use Essential hypertension I10 Hypercholesterolemia E78.00 Persistent atrial fibrillation I48.19 Coronary artery disease involving [place] coronary artery of [place] heart without angina pectoris I25.10 Associated angina: without angina Coronary Disease-Associated Artery/Lesion type: [place] artery [place] vs. transplanted heart: [place] heart COPD (chronic obstructive pulmonary disease) J44.9 Assessment & Plan Assessment & Plan (1) Type 2 diabetes mellitus with hyperglycemia: Comment: Dr. Franklin Code(s): E11.65 - Type 2 diabetes mellitus with hyperglycemia Category: Medical Qualifiers: Diabetes mellitus custodial insulin use: without custodial use Qualified Code(s): E11.65 - Type 2 diabetes mellitus with hyperglycemia Plan: Decrease the amount of carbohydrate intake, pasta, bread, rice and potatoes are all sugar and that is aside from all the sweet stuff, remember that fruits are good but they are Sweet also. Hemoglobin A1c goal of less than 7.0. Patient is diet controlled (2) Essential hypertension: Code(s): I10 - Essential (primary) hypertension Category: Medical Plan: Continue with blood pressure medication. Decrease salt intake and exercise continue on with metoprolol 50 mg once a day (3) Hypercholesterolemia: Code(s): E78.00 - Pure hypercholesterolemia, unspecified Category: Medical Plan: Avoid fried foods, chicken skin, eggs, butter margarine, pastries and meat. Be it pork or beef they have a lot of cholesterol on atorvastatin 80 mg once a day LDL goal of less than 70 and triglyceride of less than 150. (4) Persistent atrial fibrillation: Comment: Two cardioversions with amiodarone and Multaq failure Code(s): I48.19 - Other persistent atrial fibrillation Category: Medical Plan: Continue with anticoagulation and metoprolol (5) Coronary artery disease: Comment: PTCA 1991 and 1998 stent placement April [address] Alvarado echo ejection fraction 60 65% grade 2 diastolic dysfunction March 2017, September 2017, November 2017 positive stress test echo December 2019 normal ejection fraction, May 2022 myocardial perfusion scan or Code(s): I25.10 - Atherosclerotic heart disease of [place] coronary artery without angina pectoris Category: Medical Qualifiers: Associated angina: without angina Coronary Disease-Associated Artery/Lesion type: [place] artery [place] vs. transplanted heart: [place] heart Qualified Code(s): I25.10 - Atherosclerotic heart disease of [place] coronary artery without angina pectoris Plan: Control the cholesterol, weight, blood pressure, diabetes continuing with anticoagulation (6) COPD (chronic obstructive pulmonary disease): Comment: DUE TO HIS PAST HISTORY OF SMOKING HE DOES HAVE SOME DEGREE OF CHRONIC OBSTRUCTIVE PULMONARY DISEASE WHICH IS NOT ACTIVE AT PRESENT. PLAN IS TO DO PULMONARY FUNCTION TEST AGAIN, AND THEN DECIDE IF HE WOULD NEED SOME MAINTENANCE REGIMEN TO IMPROVE HIS BREATHING. PATIENT WAS EDUCATED ABOUT ASTHMA, AND COPD. Code(s): J44.9 - Chronic obstructive pulmonary disease, unspecified Category: Medical Plan: Patient on QVAR and albuterol Plan History of Present Illness The patient is an 89-year-old male presenting for a follow-up visit for chronic conditions management. The patient has a history of diabetes mellitus, with a recent hemoglobin A1c of 6.5, indicating controlled diabetes under diet management. His blood sugar levels have been stable, with a recent reading of 123 mg/dL. The patient also has coronary artery disease and hypercholesterolemia, with a recent LDL cholesterol level of 75 mg/dL, slightly above the target of less than 70 mg/dL. He is currently on atorvastatin 80 mg daily to manage his cholesterol levels. Hypertension is another chronic condition, managed with metoprolol 50 mg daily. The patient has chronic obstructive pulmonary disease (COPD) and is on Qvar and albuterol for management. He reports occasional wheezing on the right side, but no significant worsening of breathing. Atrial fibrillation with cardiomyopathy is present, with a noted decrease in cardiac function to 45% from a previous 61% in 2021. The patient is on anticoagulation therapy as part of his management plan. The patient reports muscle pain in the right arm, described as aching with movement, particularly when reaching or using the computer. There is no history of trauma or falls, and the pain is localized to the muscle without redness or swelling. Health Maintenance - Vaccinations: Flu shot scheduled for October, shingles, tetanus, and COVID-19 vaccinations up to date - Cardiovascular monitoring: Scheduled echocardiogram and cardiac monitoring next month Social History - Diet: Reports frequent dining out and consumption of prime rib, contributing to increased cholesterol levels - Physical Activity: Limited due to muscle pain in the right arm, affecting computer use and driving Review of Systems - Musculoskeletal: Reports muscle pain in the right arm, exacerbated by movement - Respiratory: Reports occasional wheezing, denies significant worsening of breathing Physical Exam - Musculoskeletal: No redness or swelling in right arm, pain localized to muscle on movement, no pain on palpation - Respiratory: Wheezing noted on the right side Results - Labs: Normal blood count, normal electrolytes, stable renal function, hemoglobin A1c 6.5, LDL cholesterol 75 mg/dL, vitamin B12, folic acid, and thyroid levels within normal limits Plan Patient was informed and verbally consented to the use of an ambient scribe for clinic note documentation during this visit. 1. Diabetes Mellitus The patient's diabetes mellitus is currently managed through diet control, with a hemoglobin A1c goal of less than 7.0. His recent A1c is 6.5, indicating good control, and no medication adjustments are necessary at this time. 2. Coronary Artery Disease The patient is on atorvastatin 80 mg daily to manage hypercholesterolemia, with an LDL goal of less than 70 mg/dL. Current LDL is 75 mg/dL, slightly above ta rget, suggesting dietary modifications may be beneficial. 3. Hypertension Hypertension is managed with metoprolol 50 mg once daily, with no changes to the regimen at this time. 4. Chronic Obstructive Pulmonary Disease (Copd) The patient is on Qvar and albuterol for COPD management, with occasional wheezing noted on the right side. Continued use of inhalers is advised, and monitoring of symptoms is recommended. 5. Atrial Fibrillation With Cardiomyopathy The patient is on anticoagulation therapy to manage atrial fibrillation, with a noted decrease in cardiac function to 45%. Follow-up with cardiology is scheduled for further evaluation and management. 6. Muscle Pain In Right Arm The patient reports muscle pain in the right arm, likely due to overuse or repetitive strain. Physical therapy and exercises are recommended to alleviate symptoms, with heat application as needed. Discussion Notes During the visit, we discussed the management of the patient's chronic conditions, including diabetes, coronary artery disease, hypertension, COPD, and atrial fibrillation. We reviewed the importance of maintaining a healthy diet and regular exercise to manage blood sugar and cholesterol levels. The patient was advised to continue current medications and to monitor symptoms, particularly regarding the muscle pain in the right arm and respiratory symptoms. Follow-up appointments with cardiology and for routine lab work were scheduled. Patient Instructions - Continue current medications as prescribed. - Monitor blood sugar and cholesterol levels, and maintain a healthy diet. - Use inhalers as directed and monitor respiratory symptoms. - Apply heat to the right arm and perform recommended exercises to alleviate muscle pain. - Attend scheduled follow-up appointments with cardiology and for lab work. Orders: Orders Lipid Panel 3 Months E78.00 - Pure hypercholesterolemia, unspecified, I42.9 - Cardiomyopathy, unspecified Comprehensive Met. Panel 3 Months I42.9 - Cardiomyopathy, unspecified NT Pro B Type Natriuretic Pept 3 Months I42.9 - Cardiomyopathy, unspecified Hemoglobin A1c 3 Months I42.9 - Cardiomyopathy, unspecified
[2025-07-22 08:19] VITALS: BP 132/70; PULSE 52; TEMP 36.1; O2SAT 96; BMI 23.3
== END 2025-07-22 08:52 | disposition home or self-care (01) ==
LOC: HO.HMCH 08:14
PROVIDERS: PCP Internal Medicine; Visit Provider Internal Medicine
DX: E11.65 Type 2 diabetes mellitus with hyperglycemia (principal); I48.19 Other persistent atrial fibrillation; J44.9 Chronic obstructive pulmonary disease, unspecified; I10 Essential (primary) hypertension; E78.00 Pure hypercholesterolemia, unspecified; I25.10 Atherosclerotic heart disease of native coronary artery without angina pectoris

== ENCOUNTER → 2025-08-05 09:32 | Outpatient (REF) | payer MEDICARE, SELFPAY ==
--- NOTE | 2025-08-05 09:34 | HM_ITS ---
Conclusion: 1. Patient was monitored for total period of 2 days and 23 hours 2. Baseline was atrial fibrillation with average heart rate of 93 beats per minute with adequate rate control 3. No significant pauses noted 4. Occasional PVCs noted with total burden of 0.7% 5. No patient reported events MTDD
--- NOTE | 2025-08-05 09:34 | CA_ITS ---
Transthoracic Echocardiogram Patient (Last, First, Middle): Juan Giles F Gender: M Date of : 1935 Age: 89 Procedure Date: 08/05/2025 Procedure Type: Transthoracic Echocardiogram Location: OP Height: 175.26 cm Weight: 72.58 kg BSA: 1.88 m2 Heart Rate: bpm BP: 158 / 88 mmHg Station Supervisor: TO Referring MD: Tayo Harley MD Symptoms: I42.9 - Cardiomyopathy, unspecified Study Quality: Fair ECG Rhythm: Atrial flutter Conclusions: - The left ventricular systolic function is moderately decreased. The calculated ejection fraction is 39% by biplane method. - No obvious valvular pathology seen on this study. Findings Left Ventricle Normal left ventricular cavity size. There is normal left ventricular wall thickness. The left ventricular systolic function is moderately decreased. The calculated ejection fraction is 39% by biplane method. There is moderate global hypokinesis. Diastolic function is indeterminate on the basis of available data. Right Ventricle Normal right ventricular cavity size. There is mildly decreased right ventricular systolic function. Atria Both atria are normal in size. Aortic Valve There is a normal trileaflet aortic valve. There is no aortic valve stenosis. There is trace (trivial) aortic valve regurgitation. Mitral Valve There is mild mitral annular calcification. There is trace mitral valve regurgitation. There is no mitral valve stenosis. Pulmonic Valve There is trace pulmonic valve regurgitation. Tricuspid Valve There is mild tricuspid valve regurgitation. There is no evidence of pulmonary hypertension. Great Vessels The asc aorta and aortic arch are normal in size. Venous The inferior vena cava is normal in size and collapses greater than 50% with inspiration. Pericardium/Pleural There is no evidence of pericardial effusion. Prior Study Comparison Changes noted compared to prior study dated: 04/20/2024. LVEF slightly lower than prior study. Recommendations, Care & Conclusions No obvious valvular pathology seen on this study. Measurements 2D Linear Measurements IVSd: 0.73 0.6-0.9/0.6-1.0 cm LVIDd: 4.43 3.9-5.3/4.2-5.9 cm LVIDd Index: 2.36 2.4-3.2/2.2-3.1 cm/m2 LVIDs: 3.56 2.0-3.6 cm LVPWd: 0.86 0.7-1.1 cm LA Diam: 3.70 2.7-3.8/3.0-4.0 cm LAIDs Index: 1.97 1.5-2.3 cm/m2 LV Mass: 136.25 67-162/88-224 g LV Mass Index: 72.47 43-95/49-115 g/m2 LVOT Diam: 2.10 3.0+(-)1.3 cm 2D Systolic Function EF 4C: 41.60 >55% EF 2C: 34.40 >55% EF BiP: 38.60 >55% Mitral Valve MV Pk E: 0.96 MV Decel Time: 163.00 E'Lateral: 5.73 E'Medial: 4.64 E/E' Med: 20.60 E/E' Lat: 16.70 PHT: 48.00 MVA PHT: 4.58 Decel [place]: 5.90 Aortic Valve AoV Pk Binh: 0.76 AoV Pk Grad: 2.00 LVOT LVOT Pk Binh: 0.58 LVOT Mn Binh: 0.42 LVOT VTI: 0.11 LVOT Pk Grad: 1.00 LVOT Mn Grad: 1.00 LVOT Diam: 2.10 LVOT Area: 3.46 Diastolic Function MV Pk E: 0.96 E'Medial: 4.64 E/E' Med: 20.60 E' Laterial: 5.73 E/E' Lat: 16.70 Right Ventricle TAPSE (mm): 12.30 TVS' Binh: 7.76 Tricuspid Valve TR Pk Binh: 2.44 TR Pk Grad: 24.00 RA Press: 3.00 RVSP: 27.00 Great Vessels Aorta Sinus of Valsalva: 3.30 2.0-3.5 cm Ao Asc: 3.50 2.1-3.4 cm Ao Arch: 3.50 Updated in Other Vendor System with Status of Final Tayo Harley MD electronically signed on 08/07/2025 2:12:55 PM with status of Final
== END ==
LOC: HO.CARD 09:32
PROVIDERS: PCP Internal Medicine; Visit Provider Internal Medicine
DX: I48.19 Other persistent atrial fibrillation (principal); I42.9 Cardiomyopathy, unspecified
CPT/HCPCS: 93242; 93306

== ENCOUNTER → 2025-08-05 09:34 | Outpatient (BNV) | payer MEDICARE, SELFPAY | PROVIDERS: PCP Internal Medicine; Visit Provider Internal Medicine | DX: I42.9 Cardiomyopathy, unspecified (principal) | CPT/HCPCS: 93306 ==

== ENCOUNTER 2025-08-25 10:10 | Outpatient (AMB) | payer MEDICARE, SELFPAY ==
--- NOTE | 2025-08-25 10:12 | A.OFFVIS_ITS ---
Vital Signs 08/25/25 10:17 Height 5 ft 9 in Weight 163 lb 9.328 oz BMI 24.2 BP 130/72 Blood Pressure Location Lt brachial Position Sitting Pulse 128 H Pulse Source Monitor Intake Visit Reasons: 6m follow up/echo/holter Wedding Decorator Required: No Accompanied by: Self / Same As Patient Allergies lisinopril Allergy (Unknown, Verified 07/22/25 08:19) hyperkalemia Medication List - Last Reconciled 08/25/25 by Tayo Harley MD albuterol sulfate 90 mcg/actuation (ProAir HFA) 2 puffs inhalation Q6H PRN apixaban (Eliquis) 5 mg PO BID 90 days atorvastatin 80 mg PO DAILY beclomethasone dipropionate 80 mcg/actuation (Qvar RediHaler) 1 inh inhalation Q12H cholecalciferol (vitamin D3) 25 mcg PO DAILY digoxin 125 mcg PO DAILY ferrous sulfate 325 mg PO DAILY metoprolol succinate ER (Toprol XL) 50 mg PO DAILY HPI Comments Details: Juan returns for follow-up. In 2021, he had atrial fibrillation with rapid rate. Subsequently, underwent SUKUMAR and cardioversion. He was then put on Multaq. He was in sinus for a while but then went back into atrial fibrillation and had symptoms from the same. Hence had one further cardioversion in 2022. Then put on amiodarone. After a while, again reverted to atrial fibrillation. At that time, Amiodarone was stopped and he was just left on rate control medications. He was then referred to EP as well but he was not felt to be a candidate for ablation. Currently, he states he is generally feeling okay. No specific cardiac symptoms. He is denying any undue shortness of breath or noticing any palpitations. He has been having some cough and expectoration. [facility] Medical History Asthma Iron deficiency anemia Chest pain Arrhythmia Tinea pedis Pre-op evaluation TSH elevation Impacted cerumen of both ears Syncopal episodes CHF exacerbation Paroxysmal atrial fibrillation History of cardioversion CAD (coronary artery disease) CEBALLOS (dyspnea on exertion) COPD (chronic obstructive pulmonary disease) Chest pain Atrial fibrillation with rapid ventricular response Hyperkalemia Atrial fibrillation and flutter Pulmonary hypertension Diastolic dysfunction Essential hypertension Atherosclerotic cardiovascular disease Hypercholesterolemia Iron deficiency anemia Vitamin D deficiency Diabetic neuropathy Left renal stone Coronary artery disease Type 2 diabetes mellitus with hyperglycemia Surgical History History of cataract surgery Hx of cardiac catheterization History of lymph node excision History of inguinal hernia repair History of appendectomy Family History Father CVD (cardiovascular disease) Myocardial infarction Mother Hypertension Heart disease Diabetes CVD (cardiovascular disease) Sister No problems noted. Sister Diabetes Social History Household Members: Family Household Members Other:: son and grandchildren Housing: House Are you a primary reproductive healthcare assistant to a significant other at home: No Do you presently have visiting nurse or other home services: No Alcohol intake: never Patient Tobacco Use Status: Former Tobacco user Tobacco use type: Cigarette Years Smoked: 50 e-Cigarette/Vaping Use: Never Used Second Hand Smoke Exposure: Yes service: No Current occupational status: retired Cognitive needs: No Hearing needs: Yes Vision needs: Yes Review of Systems Const Denies chills, Denies fatigue, Denies fever(s), Denies frequent falls, Denies weakness, Denies weight gain and Denies weight loss ENT Denies dizziness Card Denies chest pain, Denies leg edema, Denies lightheadedness, Denies palpitations, Denies dyspnea and Denies dyspnea on exertion Resp Denies cough, Denies dyspnea and Denies dyspnea on exertion GI Denies hematochezia Musc Denies abnormal gait, Denies muscle weakness, Denies numbness, Denies radiating pain into limb and Denies tingling Neuro Denies abnormal gait, Denies dizziness, Denies frequent falls, Denies numbness, Denies tingling and Denies weakness Endo Denies fatigue and Denies palpitations Physical Exam Vital Signs: Last Vital Signs Pulse 128 H 08/25/25 10:17 BP 130/72 08/25/25 10:17 BMI result Body Mass Index 24.2 Const General: comfortable and no acute distress Orientation/consciousness: patient oriented x3 HEENT Other: Unremarkable Head: Yes normal to inspection Neck Neck: Yes normal visual inspection Chest Chest palpation & inspection: normal inspection of the chest Resp Auscultation: rhonchi and diminished lung sounds Cardio Palpation: normal PMI Heart sounds: S1 normal heart sound present, S2 normal heart sound present, no gallops, no murmurs and no rubs GI Palpation (GI): Soft to palpation Back/Spine/Pelvis Other: unremarkable Skin General skin exam: no rashes or lesions noted Neuro General: patient oriented x3 Extrem General: Yes normal to inspection Psych Mental Status: mental status grossly normal Office Procedures EKG Details: EKG with atrial flutter at 128/Min; incomplete right bundle-branch block pattern. [id number], Complete Assessment & Plan Assessment & Plan (1) Persistent atrial fibrillation: Comment: Two cardioversions with amiodarone and Multaq failure Code(s): I48.19 - Other persistent atrial fibrillation Category: Medical Plan: Status post cardioversion x2. In spite of being on amiodarone, he went back into atrial fibrillation in today's and flutter. Not felt to be an ablation candidate by EP. He remains on beta-blockers. As the rate is fast, add digoxin. We will bring him back for an EKG in a few days. Continue Eliquis. In the recent Holter, underlying rhythm is atrial fibrillation with an average rate of 93/Min. About 12% of the time, rate > 100/Min. (2) Cardiomyopathy: Code(s): I42.9 - Cardiomyopathy, unspecified Category: Medical Plan: In the recent echocardiogram, LVEF 39%. Prior to that, 40-45%. Suspect related to atrial arrhythmias. Could also have underlying coronary disease but he has got no angina. We will monitor. (3) Atherosclerotic cardiovascular disease: Code(s): I25.10 - Atherosclerotic heart disease of [place] coronary artery without angina pectoris Category: Medical Plan: Cardiac [id number] post RCA and PDA stenting; midcircumflex 60% stenosis; LPE-xevy-wr-moderate disease. Myocardial perfusion imaging study from 2021 without any clear ischemic findings or prior infarction. He remains on beta-blockers, statins. Last LDL 60s to 70s mg/dl. (4) Essential hypertension: Code(s): I10 - Essential (primary) hypertension Category: Medical Plan: Stable. Plan Discussion Notes I discussed with the patient the need to slow down his heart rate with medication and the importance of follow-up with an EKG in two weeks to monitor his condition. We also talked about the possibility of asthma and the need to monitor his respiratory symptoms closely. Patient was informed and verbally consented to the use of an ambient scribe for clinic note documentation during this visit. Medications: New digoxin 125 mcg PO DAILY 90 tabs 1RF Coding Level of Care Code Est Pt Level 4 (12460) Complex EM visit Add On G2211 Diagnoses Persistent atrial fibrillation I48.19 Cardiomyopathy I42.9 Atherosclerotic cardiovascular disease I25.10 Essential hypertension I10 CPT Codes EKG - CPT: 88624-[id number], Complete ([id number])
[2025-08-25 10:17] VITALS: BP 130/72; PULSE 128; BMI 24.2
== END 2025-08-25 10:33 | disposition home or self-care (01) ==
LOC: HO.HCS 10:11
PROVIDERS: PCP Internal Medicine; Visit Provider Internal Medicine
DX: I48.19 Other persistent atrial fibrillation (principal); I42.9 Cardiomyopathy, unspecified; I25.10 Atherosclerotic heart disease of native coronary artery without angina pectoris; I10 Essential (primary) hypertension
CPT/HCPCS: 93010; 99214; G2211